=== PATIENT | female | born 1935 | race Caucasian/White ===

== ENCOUNTER 2019-07-04 11:27 | Inpatient (IN) | payer MEDICARE, SELFPAY ==
[2019-07-04] VITALS (20 sets, daily range): BP systolic 121–180; BP diastolic 50–83; PULSE 59–81; RESP 11–24; TEMP 36.1–37; O2SAT 96–100; BMI 30.4
--- NOTE | ~2019-07-04 | XR_ITS ---
EXAMINATION: XR chest 1V DATE: 07/04/2019 12:12 INDICATION: Generalized weakness TECHNIQUE: frontal view of the chest was obtained. COMPARISON: Chest radiograph dated 10/01/2018 and PET/CT dated 06/18/2014 FINDINGS: Unchanged elongated nodular opacity at the right upper lung zone most likely atelectasis/scarring whi ch was present and without significant increased FDG uptake on PET study dated 06/18/2014. Moderate-siz ed hiatal hernia at the medial left lower lung zone. No new airspace opacities, pulmonary edema, pleu ral effusion or pneumothorax. Cardiomegaly. Tortuous thoracic aorta. S-shaped thoracolumbar scoliosis . IMPRESSION: 1. Chronic scarring at the right apex. No acute cardiopulmonary disease. 2. Moderate-sized hiatal hernia. 3. Cardiomegaly. Reviewed, dictated and finalized at location A.
--- NOTE | ~2019-07-04 | US_ITS ---
EXAMINATION: US venous doppler [facility] DATE: 07/07/2019 12:18 INDICATION: Left peroneal vein deep venous thrombosis TECHNIQUE: Rucker scale images without and with compression and Doppler images of the bilateral lower e xtremity veins were obtained. COMPARISON: 07/04/2019. FINDINGS: The right common femoral vein, profunda femoral vein, femoral vein, popliteal vein, peroneal trunk, p osterior tibial veins, and greater saphenous vein are patent. There is now thrombosis in two of two left peroneal veins. The left common femoral vein, profunda fem oral vein, femoral vein, popliteal vein, posterior tibial veins, and greater saphenous vein are mendes nt. IMPRESSION: 1. Thrombosis in two of two left peroneal veins. 2. No evidence of right-sided deep venous thrombosis. Reviewed, dictated and finalized at location A.
--- NOTE | ~2019-07-04 | CT_ITS ---
EXAMINATION: CT abdomen pelvis wo con DATE: 07/04/2019 14:41 INDICATION: Abdominal pain and weakness TECHNIQUE: Computed tomography (CT) of the abdomen and pelvis was performed without intravenous contr ast. The dose-length product (DLP) was 848.66 mGy-cm. Automated exposure control and iterative recons truction technique were employed. COMPARISON: PET CT, 06/18/2014 FINDINGS: There is a moderate-sized sliding hiatal hernia. Minimal dependent atelectasis is present i n the lung bases. The heart size is normal. There is a stable 2.2 cm cyst of the left hepatic lobe. T he spleen, pancreas, and adrenal glands are normal. There is mild distention of the gallbladder. Ther e is irregular wall thickening involving the first and second portions of the duodenum. There is fat stranding adjacent to the affected segment of duodenum with an increase in number of adjacent nonenla rged lymph nodes. The kidneys are unremarkable. There is no free intraperitoneal gas or evidence of b owel obstruction. There is calcified atherosclerosis of the aorta and many of the other arteries. The appendix is normal. A T11 burst fracture is new since the comparison examination. There is severe radha mbar spondylosis. IMPRESSION: 1. Irregular wall thickening involving the first and second portions of the duodenum which could refl ect infection/inflammation or malignancy. GI evaluation is recommended. 2. T11 burst fracture, new since the comparison examination. Reviewed, dictated and finalized at location A. IMPRESSION: 1. Irregular wall thickening involving the first and second portions of the duo denum which could reflect infection/inflammation or malignancy. GI evaluation i s recommended. 2. T11 burst fracture, new since the comparison examination.
--- NOTE | ~2019-07-04 | NM_ITS ---
EXAMINATION: NM pulmonary perfusion DATE: 07/05/2019 13:16 INDICATION: Deep venous thrombosis. Shortness of breath. TECHNIQUE: 5.02 mCi Tc-99m MAA was administered IV. Scintigraphic images of the chest were obtained. COMPARISON: Chest radiograph dated 07/04/[address] abdomen dated FINDINGS: Small perfusion defect at the lateral right upper lung zone corresponding to a chronic airspace opaci ty likely atelectasis/scarring which can be seen on PET/CT dated 06/18/2014. Moderate-sized perfusion d efect at the anterior basilar segment of the right lower lobe without corresponding radiographic opac ity. Asymmetric decreased activity in the left mid and lower lung zones which correspond to cardiomeg randi, a prominent left paracardial fat pad as well as a large hiatal hernia. IMPRESSION: 1. Intermediate probability for pulmonary embolism with moderate-sized perfusion defect at the anter obasilar segment of the right lower lobe. Reviewed, dictated and finalized at location A. IMPRESSION: 1. Intermediate probability for pulmonary embolism with moderate-sized perfusi on defect at the anterobasilar segment of the right lower lobe.
--- NOTE | ~2019-07-04 | US_ITS ---
EXAMINATION: US venous doppler [facility] DATE: 07/04/2019 12:32 INDICATION: Left lower limb swelling and pain TECHNIQUE: Rucker scale images without and with compression and Doppler images of the left lower extrem ity veins were obtained. COMPARISON: None. FINDINGS: There is thrombosis in one of two peroneal veins. The left common femoral vein, profunda fe moral vein, femoral vein, popliteal vein, posterior tibial veins, and greater saphenous vein are mendes nt. IMPRESSION: 1. Thrombosis in one of two peroneal veins. These findings were discussed with Mariah Forrest PA-C in the Emergency Department at 1237 hours on 07/04/2019. Reviewed, dictated and finalized at location A.
--- NOTE | 2019-07-04 11:46 | ECG_ITS ---
Measurements Intervals [place] Rate: 56 P: 44 [place]: 123 QRS: 9 QRSD: 93 T: 11 QT: 469 QTc: 455 Interpretive Statements SINUS BRADYCARDIA EARLY PRECORDIAL R/S TRANSITION VOLTAGE CRITERIA FOR LVH BASELINE ARTIFACT- I, II, III, AVF BORDERLINE ECG Electronically Signed On 07-04-2019 12:38:08 CDT by Kvng Coles D.O.
--- NOTE | 2019-07-04 12:06 | PC.NURSE ---
Unable to obtain adequate specimen with straight cath -patient going to xray and ultrasound-will reattempt when back on unit. PA notified
--- NOTE | 2019-07-04 12:15 | ED.WEAKNESS ---
HPI - Weakness General Chief complaint: Weakness Stated complaint: sent from PMD for continued UTI Time Seen by Provider: 07/04/19 11:36 Source: patient Mode of arrival: wheelchair Limitations: no limitations History of Present Illness HPI Narrative: This is a 84 year old female that presents to the ER for generalized weakness x 5 weeks. Reports she has been feeling weak and short of breath. Reports a productive cough. Also reports some nausea and abdominal pain and that she has not wanted to eat much. Daughter reports she was treated with 2 rounds of antibiotics for UTI. Patient denies fever, chest pain, vomiting, diarrhea, dysuria or hematuria. Related Data Home Medications Medication Instructions Recorded Confirmed On-S1-mpf-ldth-tlu-elvg-boron 1 tablet PO DAILY 07/04/19 [Caltrate 600-D Plus Minerals] albuterol sulfate 2 puff INHALATION QID 07/04/19 atorvastatin 10 mg PO HS 07/04/19 budesonide-formoterol [Symbicort] 2 puff INHALATION BID 07/04/19 cetirizine [Zyrtec] 10 mg PO DAILY 07/04/19 citalopram 40 mg PO HS 07/04/19 diclofenac sodium 75 mg PO BID 07/04/19 gabapentin 100 mg PO DAILY 07/04/19 hydrocodone-acetaminophen 1 tablet PO DAILY PRN 07/04/19 losartan-hydrochlorothiazide 1 tablet PO DAILY 07/04/19 metoprolol succinate 100 mg PO DAILY 07/04/19 omeprazole 20 mg PO DAILY 07/04/19 ondansetron HCl 07/04/19 Allergies Allergy/AdvReac Type Severity Reaction Status Date / Time mushroom AdvReac Unknown Verified 07/04/19 12:12 oyster extract AdvReac Unknown Verified 07/04/19 12:12 Review of Systems Review of Systems: Narrative: CONSTITUTIONAL: Denies fever ENT: Denies rhinorrhea, congestion, sore throat CARDIOVASCULAR: Denies chest pain RESPIRATORY: Reports cough and dyspnea. GASTROINTESTINAL: Reports abdominal pain, nausea. Denies vomiting, or diarrhea. GENITOURINARY: Denies dysuria or hematuria. NEUROLOGIC: Reports weakness. All systems reviewed & are unremarkable except as noted in HPI and below PMFSH Past Medical History Medical History (Updated 07/04/19 @ 16:19 by Mariha Forrest PA-C) History of depression History of hyperlipidemia History of hypertension Social History Social History Gender identity (if verbalized by the patient): Female Exam Narrative: Exam Narrative: GENERAL: Elderly, well-nourished, and in no acute distress. HEAD: Normocephalic, atraumatic. EYES: EOMI. ENT: Nares clear, no rhinorrhea or epistaxis. Mucous membranes moist. Oropharynx without tonsillar hypertrophy exudate or other lesions. NECK: Supple. No adenopathy or masses. CHEST: Clear to auscultation. No respiratory distress. No wheezes rales or rhonchi HEART: Regular rate and rhythm. No murmur heard. Normal peripheral pulses. ABDOMEN: Soft, nondistended, normal active bowel sounds. Mild tenderness to palpation throughout the lower abdomen, without guarding EXTREMITIES: Normal range of motion. Mild edema to the LLE, tender to palpation of the calf SKIN: Warm, dry, no rash. NEURO: No focal deficits. Alert and oriented x3. PSYCH: Normal mood and affect Course Consultations Consultation #1: Spoke with Dr. Ruby about patient and work-up who will consult Date: 07/04/19 Time: 16:15 Consultation #2: Spoke with hospitalist about patient and work-up who accepts admission Date: 07/04/19 Time: 16:15 Vital Signs Vital signs: Vital Signs Temperature 98.6 F 07/04/19 11:34 Pulse Rate 63 07/04/19 11:34 Respiratory Rate 16 07/04/19 11:34 Blood Pressure 133/54 L 07/04/19 11:34 Pulse Oximetry 99 07/04/19 11:34 Temperature 98.6 F 07/04/19 11:34 Pulse Rate 81 07/04/19 14:38 Respiratory Rate 19 07/04/19 14:38 Blood Pressure 158/75 H 07/04/19 14:38 Pulse Oximetry 98 07/04/19 14:38 MDM - Weakness MDM Narrative Medical decision making narrative: Patient presents to the ER for generalized weakness. She is afebrile and nontoxic appearing. Vitals are stable. CBC without leukocy
[2019-07-04 12:18] LABS: Basophils Absolute Auto 0.1 K/mm3 (0.0-0.1); Eosinophils Absolute Auto 0.1 K/mm3 (0-0.3); Eosinophils Percent Auto 0.6 % (0-4.4); Hematocrit 31.5 % (37.0-47.0); Hemoglobin 9.5 g/dL (12.0-15.0); Immature Granulocyte Absolute 0.04 K/mm3 (0.00-0.031); Immature Granulocyte Percent A 0.4 % (0-0.5); Lymphocytes Absolute Auto 1.02 K/mm3 (0.9-3.2); Lymphocytes Percent Auto 10.8 % (18.3-44.2); Mean Corpuscular HGB Conc 30.2 g/dl (32-36); Mean Corpuscular Hemoglobin 25.8 pg (26-34); Mean Corpuscular Volume 85.6 fl (80-100); Mean Platelet Volume 10.3 fl (7.4-10.4); Monocytes Absolute Auto 0.6 K/mm3 (0.1-0.6); Monocytes Percent Auto 6.7 % (2.6-8.5); Neutrophils Absolute Auto 7.6 K/mm3 (1.3-6.7); Neutrophils Percent Auto 80.5 % (45.5-73.1); Platelet Count Result 342 k/mm3 (150-375); Red Blood Count 3.68 M/mm3 (4.2-5.4); Red Cell Distribution Width 14.1 % (11.5-14.5); White Blood Count 9.5 K/mm3 (4.5-10.0)
[2019-07-04 12:30] LABS: Potassium 3.7 mmol/L (3.4-5.0)
[2019-07-04 12:32] LABS: Lactic Acid Reflex 1.8 mmol/L (0.7-2.1)
[2019-07-04 12:33] LABS: Alanine Aminotransferase 10 U/L (4-35); Albumin Level 4.1 g/dL (3.5-5.1); Alkaline Phosphatase 52 U/L (38-126); Aspartate Amino Transferase 24 U/L (14-36); Bilirubin,Total 0.6 mg/dL (0.2-1.3); Blood Urea Nitrogen 28 mg/dL (7-17); Calcium 8.9 mg/dL (8.4-10.2); Carbon Dioxide 23 mmol/L (22-30); Chloride 100 mmol/L (98-107); Estimated Glomerular Filt Rate 29; Glucose 97 mg/dL (65-105); Sodium 134 mmol/L (137-145)
[2019-07-04 12:41] LABS: CRP 0.9 mg/dL (<1.0)
[2019-07-04 12:44] LABS: Lipase 109 U/L (23-300)
[2019-07-04] MEDS: SODIUM CHLORIDE 0.9% IV 1,000 ML 999 ML IV CONT (12:47)
[2019-07-04 12:48] LABS: NT Pro B Type Natriuretic Pept 2630 PG/ML (5-100)
[2019-07-04] MEDS: ONDANSETRON INJ 4 MG/2 ML VIAL IV PUSH (13:05)
[2019-07-04 13:57] LABS: Add Urine Microscopic? YES; Appearance Urine Cloudy (Clear); Bacteria Urine Trace /hpf; Bilirubin Urine Negative (Negative); Blood Urine Negative (Negative); Color Urine Yellow (Yellow); Glucose Urine UA Negative (Negative); Hyaline Casts Urine 50+ /lpf; Ketones Urine 1+ mg/dL (Negative); Leukocyte Esterase Ur Negative LEU/UL (Negative); Mucus Urine Few /lpf; Nitrate Urine Negative (Negative); Protein Urine 2+ mg/dL (Negative); Specific Grav Ur 1.017 (1.001-1.035); Squamous Epithelial Cell Urine Occasional /hpf (Few); Transitional Epi Cells Urine Rare /hpf (None Seen)
[2019-07-04] MEDS: ENOXAPARIN 80 MG/0.8 ML SYRINGE 75 MG SUB-Q (14:37)
--- NOTE | 2019-07-04 17:12 | ADMGEN ---
This patient, Karime Magana, was admitted to Medical Room 342-01. Patient/family oriented to hospital policies and general routines including ID bracelet, bed and alarms, visiting hours, pain management, procedures, bathroom and other care routines, personal items, smoking policy, room service/diet, and visiting hours. Valuables list has been completed. Information on how to activate the Rapid Response Team has been discussed. Patient/Family are encouraged to report perceived risks to care and to ask questions if they do not understand what they are told or what they should do.
--- NOTE | 2019-07-04 19:13 | PM.IMHP ---
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 The patient had 2 rounds of antibiotics for UTI and she has been complaining of weakness for last 5 weeks. She is also short of breath and had a productive cough. She has had some nausea and abdominal pain and has not been able to eat very much. She has decreased appetite. CT of the abdomen was read as irregular wall thickening involving the 1st 2nd portions of the duodenum which could reflect infection/inflammation or malignancy. GI evaluation is recommended. T11 element burst fracture, new since the comparison examination. GI has been consulted. Venous Doppler the left lower extremity was read as thrombosis and 1 of 2 peroneal veins. Patient was complaining redness and swelling to extremity. She was having some pain with held left leg as well. Patient was started on subcu Lovenox and Zofran and IV fluids.Creatinine is 1.7. GFR of 29. Date of service 07/04/2019 Review of Systems Review of Systems: All systems reviewed & are unremarkable except as noted in HPI and below Constitutional: Constitutional: Reports as per HPI and Reports no additional constitutional complaints Eyes: Eyes: Reports as per HPI and Reports no additional eye complaints ENT: Reports system reviewed and no additional complaints, except as documented and Reports Normal hearing present Cardiovascular: Cardiovascular: Reports no additional cardiovascular complaints Respiratory: Respiratory: Reports no additional respiratory complaints and Reports no additional respiratory complaints Gastrointestinal: Gastrointestinal: Reports as per HPI and Reports no additional gastrointestinal complaints Musculoskeletal: Musculoskeletal: Reports no additional musculoskeletal complaints Integumentary/Breasts: Skin/Breast: Reports system reviewed and no additional complaints, except as docu and Reports as per HPI Neurologic: Reports system reviewed and no additional complaints, except as documented, Reports as per HPI and Reports Normal hearing present Psychiatric: Psychiatric: Reports no additional psychiatric complaints and Reports as per HPI Endocrine: Endocrine: Reports no additional endocrine complaints Hematologic/Lymphatic: Hematologic/Lymphatic: Reports no additional hematologic/lymphatic complaints Allergic/Immunologic: Allergic/Immunologic: Reports no additional allergic/immunologic complaints [facility] Past Medical History Medical History (Updated 07/04/19 @ 19:44 by Izzy Knox, KAREN) COPD (chronic obstructive pulmonary disease) History of depression History of hyperlipidemia History of hypertension Hyperlipidemia Surgical History Surgical History (Updated 07/04/19 @ 19:24 by Izzy Knox NP) H/O tubal ligation Family History Family History Mother Hypertension Sibling Hypertension Social History Social History (Updated 07/04/19 @ 19:29 by Izzy Knox NP) Social History: Patient is . She lives at [facility]. She has 4 daughters. 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 After smoking since the age of 18. She works for a [employer]. Smoking packs per day: 0.75 Smoking cigarettes per day: 15.0 Years smoked: 60 Smoking pack-years: 45.00 Smoking status: Former smoker Tobacco type: cigarettes Alcohol intake: current Drinks per week: 1 Substance use type: does not use Living arrangements: alone Gender identity (if verbalized by the patient): Female Spiritual care concerns: No Agree to blood products: Yes Meds Home Medications and Allergies Home Medications Medication Instructions Recorded Confirmed Type Sb-B5-eaa-vpkd-jgn-stse-boron 1 tablet PO DAILY 07/04/19 07/04/19 History [Caltrate 600-D Plus Minerals] albuterol sulfate
[2019-07-04] MEDS: ALBUTEROL SULFATE (*SP) AEROSOL 1 PUFF 2 PUFF INHALATION (20:53)
[2019-07-04] MEDS: GABAPENTIN 100 MG CAPSULE PO (21:13)
[2019-07-04] MEDS: CITALOPRAM HYDROBROMIDE 20 MG TABLET 40 MG PO (21:14)
[2019-07-05] VITALS (13 sets, daily range): BP systolic 103–137; BP diastolic 46–81; PULSE 56–69; RESP 14–20; TEMP 36–36.7; O2SAT 92–100; BMI 30.4
[2019-07-05] MEDS: ENOXAPARIN 80 MG/0.8 ML SYRINGE 72 MG SUB-Q (05:08)
[2019-07-05] MEDS: GABAPENTIN 100 MG CAPSULE PO ×3 (05:08→21:20)
[2019-07-05 05:17] LABS: Basophils Absolute Auto 0.1 K/mm3 (0.0-0.1); Basophils Percent Auto 0.7 % (0.2-1.2); Eosinophils Absolute Auto 0.1 K/mm3 (0-0.3); Hematocrit 27.2 % (37.0-47.0); Hemoglobin 8.2 g/dL (12.0-15.0); Immature Granulocyte Absolute 0.02 K/mm3 (0.00-0.031); Immature Granulocyte Percent A 0.3 % (0-0.5); Lymphocytes Percent Auto 19.1 % (18.3-44.2); Mean Corpuscular HGB Conc 30.1 g/dl (32-36); Mean Corpuscular Hemoglobin 25.8 pg (26-34); Mean Corpuscular Volume 85.5 fl (80-100); Mean Platelet Volume 9.8 fl (7.4-10.4); Monocytes Absolute Auto 0.6 K/mm3 (0.1-0.6); Neutrophils Absolute Auto 4.8 K/mm3 (1.3-6.7); Neutrophils Percent Auto 69.9 % (45.5-73.1); Platelet Count Result 240 k/mm3 (150-375); Red Blood Count 3.18 M/mm3 (4.2-5.4); White Blood Count 6.8 K/mm3 (4.5-10.0)
[2019-07-05 05:33] LABS: Alanine Aminotransferase 8 U/L (4-35); Albumin Level 3.4 g/dL (3.5-5.1); Alkaline Phosphatase 43 U/L (38-126); Aspartate Amino Transferase 18 U/L (14-36); Bilirubin,Total 0.3 mg/dL (0.2-1.3); Blood Urea Nitrogen 27 mg/dL (7-17); Carbon Dioxide 24 mmol/L (22-30); Chloride 103 mmol/L (98-107); Estimated CRCL calculation 25 ml/min; Estimated Glomerular Filt Rate 36; Glucose 79 mg/dL (65-105); Magnesium 1.4 mg/dL (1.6-2.3); Potassium 3.5 mmol/L (3.4-5.0); Sodium 135 mmol/L (137-145)
[2019-07-05] MEDS: ALBUTEROL SULFATE (*SP) AEROSOL 1 PUFF 2 PUFF INHALATION ×4 (08:41→20:03)
[2019-07-05] MEDS: MAGNESIUM SULF 2 GM/WATER 50ML 2 GM/50 ML BAG IVPB (08:46)
[2019-07-05] MEDS: LACTATED RINGERS 1,000 ML 150 ML IV CONT (09:23)
--- NOTE | 2019-07-05 09:29 | SUR.PREOP ---
0929 CALLED DAUGHTER SON AND GIVEN UPDATE, MESSAGE GIVEN TO DR. NOBLE FROM DAUGHTER REQUESTING AN UPDATE AFTER PROCEDURE. DINO KO
--- NOTE | 2019-07-05 09:45 | WPDANESEPPF ---
Anes - Initial Pre Proc Eval Procedure: Operation Date: 07/05/19 10:00 Proposed Procedures p Esophagogastroduodenoscopy - Nick Ruby MD Date/Time: 07/05/19 09:45 Surgeon: Marin Ramírez PA-C Pre Op Diagnosis: DVT Patient Data Age: 84 Gender: F Height: 5 ft 1 in Weight: 73.2 kg Last Vital Signs Temp 36.4 C L 07/05/19 09:24 Pulse 69 07/05/19 09:24 Resp 20 07/05/19 09:24 BP 116/46 L 07/05/19 09:24 Pulse Ox 92 07/05/19 09:24 Allergies Allergy/AdvReac Type Severity Reaction Status Date / Time mushroom AdvReac Unknown Verified 07/04/19 12:12 oyster extract AdvReac Unknown Verified 07/04/19 12:12 Home Medications Medication Instructions Recorded Confirmed Type Wr-D1-ode-hwza-ozv-xitg-boron 1 tablet PO DAILY 07/04/19 07/04/19 History [Caltrate 600-D Plus Minerals] albuterol sulfate 2 puff INHALATION QID 07/04/19 07/04/19 History atorvastatin 10 mg PO HS 07/04/19 07/04/19 History budesonide-formoterol [Symbicort] 2 puff INHALATION BID 07/04/19 07/04/19 History cetirizine [Zyrtec] 10 mg PO DAILY 07/04/19 07/04/19 History citalopram 40 mg PO HS 07/04/19 07/04/19 History diclofenac sodium 75 mg PO Q12H 07/04/19 07/04/19 History ergocalciferol (vitamin D2) 1,250 mcg PO WEEKLY 07/04/19 07/04/19 History [Vitamin D2] gabapentin 100 mg PO TID 07/04/19 07/04/19 History hydrocodone-acetaminophen 1 tablet PO DAILY PRN 07/04/19 07/04/19 History losartan-hydrochlorothiazide 1 tablet PO DAILY 07/04/19 07/04/19 History metoprolol succinate 100 mg PO DAILY 07/04/19 07/04/19 History omeprazole 20 mg PO DAILY 07/04/19 07/04/19 History ondansetron HCl 4 mg DAILY PRN 07/04/19 07/04/19 History Laboratory Tests 07/04/19 07/04/19 07/04/19 12:03 12:03 12:03 WBC 9.5 K/mm3 K/mm3 (4.5-10.0) RBC 3.68 M/mm3 L M/mm3 (4.2-5.4) Hgb 9.5 g/dL L g/dL (12.0-15.0) Hct 31.5 % L % (37.0-47.0) MCV 85.6 fl fl (80-100) MCH 25.8 pg L pg (26-34) MCHC 30.2 g/dl L g/dl (32-36) RDW 14.1 % % (11.5-14.5) Plt Count 342 k/mm3 k/mm3 (150-375) MPV 10.3 fl fl (7.4-10.4) Immature Gran % (Auto) 0.4 % % (0-0.5) Neut % (Auto) 80.5 % H % (45.5-73.1) Lymph % (Auto) 10.8 % L % (18.3-44.2) Person % (Auto) 6.7 % % (2.6-8.5) Eos % (Auto) 0.6 % % (0-4.4) Baso % (Auto) 1.0 % % (0.2-1.2) Lymph # (Auto) 1.02 K/mm3 K/mm3 (0.9-3.2) Person # (Auto) 0.6 K/mm3 K/mm3 (0.1-0.6) Eos # (Auto) 0.1 K/mm3 K/mm3 (0-0.3) Baso # (Auto) 0.1 K/mm3 K/mm3 (0.0-0.1) Abs Immat Gran (auto) 0.04 K/mm3 H K/mm3 (0.00-0.031) Absolute Neuts (auto) 7.6 K/mm3 H K/mm3 (1.3-6.7) Absolute Nucleated RBC 0.0 K/mm3 K/mm3 (0.0-0.012) Nucleated RBC % 0.0 % % (0.0-0.2) Sodium 134 mmol/L L mmol/L (137-145) Potassium 3.7 mmol/L mmol/L (3.4-5.0) Chloride 100 mmol/L mmol/L (98-107) Carbon Dioxide 23 mmol/L mmol/L (22-30) BUN 28 mg/dL H mg/dL (7-17) Creatinine 1.70 mg/dL H mg/dL (0.7-1.0) Estim Creat Clear Calc Not Reportable Estimated GFR 29 L (59 - ) Glucose 97 mg/dL mg/dL (65-105) Lactic Acid 1.8 mmol/L mmol/L (0.7-2.1) Calcium 8.9 mg/dL mg/dL (8.4-10.2) Magnesium Total Bilirubin 0.6 mg/dL mg/dL (0.2-1.3) AST 24 U/L U/L (14-36) ALT 10 U/L U/L (4-35) Alkaline Phosphatase 52 U/L U/L (38-126) C-Reactive Protein NT-Pro-B Natriuret Pep Total Protein 7.0 g/dL g/dL (6.3-8.2) Albumin 4.1 g/dL g/dL (3.5-5.1) Lipase TSH (Reflex) Urine Color Urine Appearance Urine pH Ur Specific [place] Urine Protein
--- NOTE | 2019-07-05 10:09 | WPDGICN ---
Assessment and Plan Assessment and plan (1) Abnormal CT scan: Code(s): R93.89 - Abnormal findings on diagnostic imaging of other specified body structures Status: Acute Assessment and Plan: CT scan suggest abnormality within the duodenum. Plan is for EGD to exclude ulcer, malignancy or infection. Further recommendations after endoscopy. Potentially this contributes to her current malaise. She has modest normochromic normocytic anemia has well. (2) Dementia: Code(s): F03.90 - Unspecified dementia without behavioral disturbance Status: Acute (3) COPD (chronic obstructive pulmonary disease): Code(s): J44.9 - Chronic obstructive pulmonary disease, unspecified Status: Chronic (4) DVT (deep venous thrombosis): Qualifiers: Affected thrombotic vein of extremity: peroneal Chronicity: acute DVT location: lower extremity Laterality: left Qualified Code(s): I82.452 - Acute embolism and thrombosis of left peroneal vein Code(s): I82.409 - Acute embolism and thrombosis of unspecified deep veins of unspecified lower extremity Status: Acute Assessment and Plan: Endoscopy will be performed to determine safety of potential anticoagulation. (5) Anemia: Qualifiers: Anemia type: unspecified type Qualified Code(s): D64.9 - Anemia, unspecified Code(s): D64.9 - Anemia, unspecified Status: Acute GI Consult Note Consult date/time: 07/05/19 10:09 HPI: Karime Magana is a 84 year old female Seen in evaluation at the request of the emergency room. Patient currently lives at [facility]. She has had general malaise for approximately 5 weeks. Recently followed by primary care was treated for urinary tract infection. This is failed to alleviate her symptoms. Because of nausea and malaise presented emergency room last evening. A CT scan of the abdomen was performed and revealed irregular wall thickening in the 2nd portion of the duodenum raising the question for infection or malignancy. An EGD will be performed to evaluate this. Patient also had had left leg swelling and tenderness of the Doppler study revealed DVT in this area. Review of Systems Review of Systems: All systems reviewed & are unremarkable except as noted in HPI and below PMFSH Past Medical History Medical History COPD (chronic obstructive pulmonary disease) History of depression History of hyperlipidemia History of hypertension Hyperlipidemia Surgical History Surgical History H/O tubal ligation Family History Family History Mother Hypertension Sibling Hypertension Social History Social History Social History: Patient is . She lives at [facility]. She has 4 daughters. 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 After smoking since the age of 18. She works for a [employer]. Smoking packs per day: 0.75 Smoking cigarettes per day: 15.0 Years smoked: 60 Smoking pack-years: 45.00 Smoking status: Former smoker Tobacco type: cigarettes Alcohol intake: current Drinks per week: 1 Substance use type: does not use Living arrangements: alone Gender identity (if verbalized by the patient): Female Spiritual care concerns: No Agree to blood products: Yes Meds Home Medications and Allergies Home Medications Medication Instructions Recorded Confirmed Type [id number] 1 tablet PO DAILY 07/04/19 07/04/19 History [Caltrate 600-D Plus Minerals] albuterol sulfate 2 puff INHALATION QID 07/04/19 07/04/19 History atorvastatin 10 mg PO HS 07/04/19 07/04/19 History budesonide-formoterol [Symbicort] 2 puff INHALATION BID 07/04/19 07/04/19 History cetirizin
[2019-07-05] MEDS: BENZOCAINE (*SP) 60 ML SPRAY CAN (HURRICAINE) 1 SPRAY MUCOUS MEM (10:29)
[2019-07-05] MEDS: KCL 20 MEQ/SW 100 ML 100 ML 50 MEQ IVPB (11:30)
--- NOTE | 2019-07-05 11:35 | P.PNIM_ITS ---
Progress Note: A&P Assessment and Plan (1) Duodenal ulcer: Code(s): K26.9 - Duodenal ulcer, unspecified as acute or chronic, without hemorrhage or perforation Status: Acute Assessment and Plan: Multiple duodenal ulcers, one large, found on EGD per Dr. Ruby today. Dr. Ruby following and appreciate recommendations * Continue PO Protonix q12 * Will avoid aspirin, NSAIDS and other medications putting her at risk for bleeding including Lovenox * Diet per GI recommendations * Monitor (2) DVT (deep venous thrombosis): Qualifiers: Affected thrombotic vein of extremity: peroneal Chronicity: acute DVT location: lower extremity Laterality: left Qualified Code(s): I82.452 - Acute embolism and thrombosis of left peroneal vein Code(s): I82.409 - Acute embolism and thrombosis of unspecified deep veins of unspecified lower extremity Status: Acute Assessment and Plan: Thrombosis in 1 of 2 left peroneal veins; no right LE venous doppler performed. She is having left calf pain on exam today. * She was started on therapeutic lovenox, however, given her EGD findings and lowered hgb today, will hold on treatment for now since clot is below knee. * PE is low on the suspicion as her respiratory status remains unchanged and unremarkable, but will proceed with NM VQ scan * Will consider repeat dopplers in 1-2 days to reassess; should clot still be present then, has worsened, or there is one in b/l LE, will consider surgical consult for possible IVC filter placement given her high risk of bleeding * Will apply SCDs to unaffected limb * Will do PT/OT to increase mobility and prevent further clot development * Monitor closely (3) Acute renal failure: Code(s): N17.9 - Acute kidney failure, unspecified Status: Acute Assessment and Plan: Cr improved to 1.40 today; likely acute, but possibly chronic. * Avoid nephrotoxic agents, renally dose medincations * Continue to monitor. * Trend BMP (4) Anemia: Qualifiers: Anemia type: unspecified type Qualified Code(s): D64.9 - Anemia, u nspecified Code(s): D64.9 - Anemia, unspecified Status: Acute Assessment and Plan: Patient's hemoglobin dropped from 9.5 to 8.2 today. She denies any signs of bl eeding at the moment. EGD showed duodenal ulcers * Avoid nsaids, aspirin, and hold on Lovenox for now * Monitor closely. H&H today and possibly tomorrow * Transfuse prn (5) Hypertension: Code(s): I10 - Essential (primary) hypertension Status: Acute Assessment and Plan: BP 130s sys * Will continue home metoprolol * Hold HCTZ-losartan given elevated Cr * Monitor closely * consider prn hydralazine if worsens (6) COPD (chronic obstructive pulmonary disease): Code(s): J44.9 - Chronic obstructive pulmonary disease, unspecified Status: Chronic Assessment and Plan: No acute issues at the moment; lung exam unremarkable. * Continue with her home inhalers. (7) Dementia: Code(s): F03.90 - Unspecified dementia without behavioral disturbance Status: Acute Assessment and Plan: Patient is very pleasant but her memory is fading she is not on any medication for dementia at this time. * Monitor (8) Burst fracture of thoracic vertebra: Qualifiers:
--- NOTE | 2019-07-05 11:35 | PM.IMPN ---
Progress Note: A&P Assessment and Plan (1) Duodenal ulcer: Code(s): K26.9 - Duodenal ulcer, unspecified as acute or chronic, without hemorrhage or perforation Status: Acute Assessment and Plan: Multiple duodenal ulcers, one large, found on EGD per Dr. Ruby today. Dr. Ruby following and appreciate recommendations Continue PO Protonix q12 Will avoid aspirin, NSAIDS and other medications putting her at risk for bleeding including Lovenox Diet per GI recommendations Monitor (2) DVT (deep venous thrombosis): Qualifiers: Affected thrombotic vein of extremity: peroneal Chronicity: acute DVT location: lower extremity Laterality: left Qualified Code(s): I82.452 - Acute embolism and thrombosis of left peroneal vein Code(s): I82.409 - Acute embolism and thrombosis of unspecified deep veins of unspecified lower extremity Status: Acute Assessment and Plan: Thrombosis in 1 of 2 left peroneal veins; no right LE venous doppler performed. She is having left calf pain on exam today. She was started on therapeutic lovenox, however, given her EGD findings and lowered hgb today, will hold on treatment for now since clot is below knee. PE is low on the suspicion as her respiratory status remains unchanged and unremarkable, but will proceed with NM VQ scan Will consider repeat dopplers in 1-2 days to reassess; should clot still be present then, has worsened, or there is one in b/l LE, will consider surgical consult for possible IVC filter placement given her high risk of bleeding Will apply SCDs to unaffected limb Will do PT/OT to increase mobility and prevent further clot development Monitor closely (3) Acute renal failure: Code(s): N17.9 - Acute kidney failure, unspecified Status: Acute Assessment and Plan: Cr improved to 1.40 today; likely acute, but possibly chronic. Avoid nephrotoxic agents, renally dose medincations Continue to monitor. Trend BMP (4) Anemia: Qualifiers: Anemia type: unspecified type Qualified Code(s): D64.9 - Anemia, unspecified Code(s): D64.9 - Anemia, unspecified Status: Acute Assessment and Plan: Patient's hemoglobin dropped from 9.5 to 8.2 today. She denies any signs of bleeding at the moment. EGD showed duodenal ulcers Avoid nsaids, aspirin, and hold on Lovenox for now Monitor closely. H&H today and possibly tomorrow Transfuse prn (5) Hypertension: Code(s): I10 - Essential (primary) hypertension Status: Acute Assessment and Plan: BP 130s sys Will continue home metoprolol Hold HCTZ-losartan given elevated Cr Monitor closely consider prn hydralazine if worsens (6) COPD (chronic obstructive pulmonary disease): Code(s): J44.9 - Chronic obstructive pulmonary disease, unspecified Status: Chronic Assessment and Plan: No acute issues at the moment; lung exam unremarkable. Continue with her home inhalers. (7) Dementia: Code(s): F03.90 - Unspecified dementia without behavioral disturbance Status: Acute Assessment and Plan: Patient is very pleasant but her memory is fading she is not on any medication for dementia at this time. Monitor (8) Burst fracture of thoracic vertebra: Qualifiers: Encounter type: subsequent encounter Fracture healing: with routine healing Fracture type: closed Qualified Code(s): S22.001D - Stable burst fracture of unspecified thoracic vertebra, subsequent encounter for fracture with routine healing Code(s): S22.001A - Stable burst fracture of unspecified thoracic vertebra, initial encounter for closed fracture Status: Acute Assessmen
--- NOTE | 2019-07-05 12:45 | PCOTNOTE ---
OT evaluation attempted. shortly after Eval initiation, patient retrieved for testing. Will attempt OT evaluation at later time.
[2019-07-05 15:24] LABS: Hematocrit 27.3 % (37.0-47.0); Hemoglobin 8.5 g/dL (12.0-15.0)
[2019-07-05] MEDS: PANTOPRAZOLE 40 MG TABLET PO (21:20)
[2019-07-05] MEDS: CITALOPRAM HYDROBROMIDE 20 MG TABLET 40 MG PO (21:20)
[2019-07-06] VITALS (7 sets, daily range): BP systolic 117–156; BP diastolic 58–70; PULSE 56–73; RESP 14–16; TEMP 36.6–36.8; O2SAT 97–98
[2019-07-06] MEDS: GABAPENTIN 100 MG CAPSULE PO ×3 (06:35→21:19)
[2019-07-06 06:37] LABS: Hematocrit 26.5 % (37.0-47.0); Hemoglobin 7.9 g/dL (12.0-15.0); Mean Corpuscular HGB Conc 29.8 g/dl (32-36); Mean Corpuscular Hemoglobin 25.5 pg (26-34); Mean Corpuscular Volume 85.5 fl (80-100); Mean Platelet Volume 10.2 fl (7.4-10.4); Platelet Count Result 243 k/mm3 (150-375); White Blood Count 6.2 K/mm3 (4.5-10.0)
[2019-07-06 06:50] LABS: Alanine Aminotransferase 8 U/L (4-35); Albumin Level 3.2 g/dL (3.5-5.1); Alkaline Phosphatase 42 U/L (38-126); Aspartate Amino Transferase 18 U/L (14-36); Bilirubin,Total 0.4 mg/dL (0.2-1.3); Blood Urea Nitrogen 21 mg/dL (7-17); Calcium 8.3 mg/dL (8.4-10.2); Carbon Dioxide 24 mmol/L (22-30); Chloride 103 mmol/L (98-107); Estimated CRCL calculation 34 ml/min; Estimated Glomerular Filt Rate 53; Glucose 86 mg/dL (65-105); Magnesium 1.7 mg/dL (1.6-2.3); Potassium 3.7 mmol/L (3.4-5.0); Sodium 133 mmol/L (137-145)
[2019-07-06] MEDS: ALBUTEROL SULFATE (*SP) AEROSOL 1 PUFF 2 PUFF INHALATION ×4 (08:37→19:17)
[2019-07-06] MEDS: POTASSIUM CHLORIDE 20 MEQ TABLET 40 MEQ PO (09:00)
[2019-07-06] MEDS: MAGNESIUM SULF 1 GM/D5W 100 ML 1 GM/100 ML BAG IVPB (09:01)
--- NOTE | 2019-07-06 09:06 | PM.IMPN ---
Progress Note: A&P Assessment and Plan (1) Duodenal ulcer: Code(s): K26.9 - Duodenal ulcer, unspecified as acute or chronic, without hemorrhage or perforation Status: Acute Assessment and Plan: Multiple duodenal ulcers, one large, found on EGD per Dr. Ruby today. Dr. Ruby following and appreciate recommendations. Continue PO Protonix q12 Will avoid aspirin, NSAIDS and other medications putting her at risk for bleeding including Lovenox Diet per GI recommendations Monitor (2) DVT (deep venous thrombosis): Qualifiers: Affected thrombotic vein of extremity: peroneal Chronicity: acute DVT location: lower extremity Laterality: left Qualified Code(s): I82.452 - Acute embolism and thrombosis of left peroneal vein Code(s): I82.409 - Acute embolism and thrombosis of unspecified deep veins of unspecified lower extremity Status: Acute Assessment and Plan: Thrombosis in 1 of 2 left peroneal veins; no right LE venous doppler performed. She is having left calf tenderness on exam again today. Patient states she has had this left calf pain for years . Possibly chronic? She was started on therapeutic Lovenox, however, given her EGD findings and lowered hgb today, will hold on treatment for now since clot is below knee. PE is low on the suspicion as her respiratory status remains unchanged and unremarkable, but will proceed with NM VQ scan Will do repeat dopplers tomorrow to reassess; should clot still be present, has worsened, or if there is b/l DVT, will consider surgical consult for possible IVC filter placement given her high risk of bleeding Will apply SCDs to unaffected limb Will do PT/OT to increase mobility and prevent further clot development Monitor closely (3) Acute renal failure: Code(s): N17.9 - Acute kidney failure, unspecified Status: Acute Assessment and Plan: Cr improved to 1.00 today; WNL. Likely acute, but possibly chronic. Avoid nephrotoxic agents, renally dose medincations Continue to monitor. Trend BMP (4) Anemia: Qualifiers: Anemia type: unspecified type Qualified Code(s): D64.9 - Anemia, unspecified Code(s): D64.9 - Anemia, unspecified Status: Acute Assessment and Plan: Patient's hemoglobin lower, but relatively stable at 7.9 today. She denies any signs of bleeding, melena at the moment or on previous BMs. EGD showed duodenal ulcers. Iron studies, folate, vit b12 levels today Avoid nsaids, aspirin, and hold on Lovenox for now Monitor closely; trend H&H tomorrow Transfuse prn (5) Hypertension: Code(s): I10 - Essential (primary) hypertension Status: Acute Assessment and Plan: BP 150s sys Will continue home metoprolol Hold HCTZ-losartan given elevated Cr; will likely resume tomorrow Monitor closely consider prn hydralazine if worsens (6) COPD (chronic obstructive pulmonary disease): Code(s): J44.9 - Chronic obstructive pulmonary disease, unspecified Status: Chronic Assessment and Plan: No acute issues at the moment; lung exam unremarkable. Continue with her home inhalers. (7) Dementia: Code(s): F03.90 - Unspecified dementia without behavioral disturbance Status: Acute Assessment and Plan: Patient is very pleasant and A&Ox4 but her memory is fading she is not on any medication for dementia at this time. Monitor (8) Burst fracture of thoracic vertebra: Qualifiers: Encounter type: subsequent encounter Fracture healing: with routine healing Fracture type: closed Qualified Code(s): S22.001D - Stable burst fracture of unspecified thoracic vertebra, subsequent encounter for
[2019-07-06] MEDS: PANTOPRAZOLE 40 MG TABLET PO ×2 (09:10→21:18)
[2019-07-06] MEDS: METOPROLOL SUCCINATE EXT REL 100 MG TABCR PO (09:10)
[2019-07-06 09:35] LABS: Iron 47 ug/dL (37-170)
[2019-07-06 09:45] LABS: Percent Iron Saturation 14 % (20-50)
[2019-07-06] MEDS: LOSARTAN POTASSIUM 100 MG TABLET PO (10:08)
[2019-07-06] MEDS: hydroCHLOROthiazide 25 MG TABLET PO (10:08)
[2019-07-06 10:51] LABS: Folic Acid 12.9 ng/mL (2.76->20)
[2019-07-06] MEDS: CYANOCOBALAMIN INJ 1,000 MCG/ML VIAL 1000 MCG IM (17:05)
[2019-07-06] MEDS: CITALOPRAM HYDROBROMIDE 20 MG TABLET 40 MG PO (21:19)
[2019-07-07] VITALS (7 sets, daily range): BP systolic 116–143; BP diastolic 53–76; PULSE 58–84; RESP 16; TEMP 36.5–36.8; O2SAT 94–100
[2019-07-07] MEDS: GABAPENTIN 100 MG CAPSULE PO ×3 (05:38→20:56)
[2019-07-07 06:12] LABS: Hematocrit 27.4 % (37.0-47.0); Hemoglobin 8.3 g/dL (12.0-15.0); Mean Corpuscular HGB Conc 30.3 g/dl (32-36); Mean Corpuscular Hemoglobin 25.5 pg (26-34); Mean Corpuscular Volume 84.3 fl (80-100); Platelet Count Result 239 k/mm3 (150-375); Red Blood Count 3.25 M/mm3 (4.2-5.4); Red Cell Distribution Width 14.2 % (11.5-14.5); White Blood Count 5.8 K/mm3 (4.5-10.0)
[2019-07-07 06:39] LABS: Albumin Level 3.4 g/dL (3.5-5.1); Blood Urea Nitrogen 19 mg/dL (7-17); Calcium 8.6 mg/dL (8.4-10.2); Carbon Dioxide 25 mmol/L (22-30); Chloride 100 mmol/L (98-107); Estimated CRCL calculation 34 ml/min; Estimated Glomerular Filt Rate 53; Glucose 94 mg/dL (65-105); Magnesium 1.7 mg/dL (1.6-2.3); Phosphorus 3.1 mg/dL (2.5-4.5); Potassium 4.1 mmol/L (3.4-5.0); Sodium 130 mmol/L (137-145)
[2019-07-07] MEDS: ALBUTEROL SULFATE (*SP) AEROSOL 1 PUFF 2 PUFF INHALATION ×4 (08:12→20:56)
[2019-07-07] MEDS: LOSARTAN POTASSIUM 100 MG TABLET PO (08:19)
[2019-07-07] MEDS: PANTOPRAZOLE 40 MG TABLET PO ×2 (08:20→20:55)
[2019-07-07] MEDS: hydroCHLOROthiazide 25 MG TABLET PO (08:20)
[2019-07-07] MEDS: METOPROLOL SUCCINATE EXT REL 100 MG TABCR PO (08:20)
--- NOTE | 2019-07-07 15:31 | PM.IMPN ---
Progress Note: A&P Assessment and Plan (1) Duodenal ulcer: Code(s): K26.9 - Duodenal ulcer, unspecified as acute or chronic, without hemorrhage or perforation Status: Acute Assessment and Plan: Multiple duodenal ulcers, one large, found on EGD per Dr. Ruby during stay. Dr. Ruby following and appreciate recommendations. Continue PO Protonix q12 Will avoid aspirin, NSAIDS and other medications putting her at risk for bleeding including anticoagulation for her DVT at this point Will await on pathology report Diet per GI recommendations Monitor (2) DVT (deep venous thrombosis): Qualifiers: Affected thrombotic vein of extremity: peroneal Chronicity: acute DVT location: lower extremity Laterality: left Qualified Code(s): I82.452 - Acute embolism and thrombosis of left peroneal vein Code(s): I82.409 - Acute embolism and thrombosis of unspecified deep veins of unspecified lower extremity Status: Acute Assessment and Plan: Thrombosis in 2 of 2 left peroneal veins on venous Doppler today; no right LE DVT noted today. She is having left calf tenderness on exam again today. Patient states she has had this left calf pain for years . Possibly chronic? NM VQ does show intermediate probability for PE with moderate-sized perfusion defect in anterobasilar segment of RLL, however, PE is low on the suspicion as her respiratory status remains unchanged and unremarkable She was started on therapeutic Lovenox, however, given her EGD findings and lowered hgb, will hold on treatment for now since clots are below the knee. Since she will be here waiting for results of biopsy results from EGD, will plan on repeating doppler in 2-3 daysl to reassess; should clot still be present, has worsened (extended proximally), or if there is b/l DVT, will consider surgical consult for possible IVC filter placement given her high risk of bleeding on a/c Will apply SCDs to unaffected limb Will do PT/OT to increase mobility and prevent further clot development Monitor closely (3) Acute renal failure: Code(s): N17.9 - Acute kidney failure, unspecified Status: Acute Assessment and Plan: Cr improved to 1.00 today; WNL. Likely acute, but possibly chronic. Continue to monitor. Trend BMP (4) Anemia: Qualifiers: Anemia type: unspecified type Qualified Code(s): D64.9 - Anemia, unspecified Code(s): D64.9 - Anemia, unspecified Status: Acute Assessment and Plan: Patient's hemoglobin lower, but relatively stable at 8.3 today. She denies any signs of bleeding, melena at the moment or on previous BMs. EGD showed duodenal ulcers. Iron studies showed low-normal iron/%sat and low-normal vit B12 and given IV venofer and IM cyanocobalamin. Avoid nsaids, aspirin, and hold on a/c for now Monitor closely; trend H&H tomorrow Transfuse prn (5) Hypertension: Code(s): I10 - Essential (primary) hypertension Status: Acute Assessment and Plan: BP 140s sys Will continue home metoprolol HCTZ-losartan resumed today Monitor closely consider prn hydralazine if worsens (6) COPD (chronic obstructive pulmonary disease): Code(s): J44.9 - Chronic obstructive pulmonary disease, unspecified Status: Chronic Assessment and Plan: No acute issues at the moment; lung exam unremarkable. Continue with her home inhalers. (7) Dementia: Code(s): F03.90 - Unspecified dementia without behavioral disturbance Status: Acute Assessment and Plan: Patient is very pleasant and A&Ox4. She is not on any medication for dementia at this time. Monitor (8) Burst fracture of thoracic vertebra:
[2019-07-07] MEDS: CITALOPRAM HYDROBROMIDE 20 MG TABLET 40 MG PO (20:55)
[2019-07-07] MEDS: ATORVASTATIN 10 MG TABLET PO (20:55)
[2019-07-08 05:57] LABS: Blood Urea Nitrogen 19 mg/dL (7-17); Calcium 8.4 mg/dL (8.4-10.2); Carbon Dioxide 25 mmol/L (22-30); Chloride 101 mmol/L (98-107); Estimated CRCL calculation 23 ml/min; Estimated Glomerular Filt Rate 33; Glucose 96 mg/dL (65-105); Magnesium 1.6 mg/dL (1.6-2.3); Potassium 3.8 mmol/L (3.4-5.0); Sodium 132 mmol/L (137-145)
[2019-07-08 06:00] VITALS: BP 116/49; PULSE 56; RESP 18; TEMP 36.5; O2SAT 98
[2019-07-08 06:01] LABS: Hematocrit 25.7 % (37.0-47.0); Hemoglobin 7.8 g/dL (12.0-15.0); Mean Corpuscular HGB Conc 30.4 g/dl (32-36); Mean Corpuscular Hemoglobin 25.9 pg (26-34); Mean Corpuscular Volume 85.4 fl (80-100); Platelet Count Result 231 k/mm3 (150-375); Red Blood Count 3.01 M/mm3 (4.2-5.4); Red Cell Distribution Width 14.6 % (11.5-14.5); White Blood Count 5.5 K/mm3 (4.5-10.0)
[2019-07-08] MEDS: GABAPENTIN 100 MG CAPSULE PO ×3 (06:20→21:18)
--- NOTE | 2019-07-08 07:01 | WPDCDIQUERY2 ---
CDI Query Clarification Request -Anemia, unspecified has been documented -07/03 H&H 9.5/31.5, 07/07 H&H 7.8/25.7 -EGD showed multiple duodenal ulcers. black material/clot was present. Please further clarify type/cause and acuity of anemia.
--- NOTE | 2019-07-08 07:24 | WPDGIPROGNO ---
Progress Note: A&P Additional Plan Patient alert and comfortable this morning. She denies abdominal pain. She denies leg pain. Tolerating diet without difficulty. Physical exam reveals her to be alert. Vital signs stable. HEENT exam unremarkable. Lungs are clear. Heart without murmur. Abdomen is soft and nontender. Extremities without clubbing cyanosis or edema. Impression 1. Multiple duodenal ulcers. One huge duodenal ulcer. Histology pending. 2. DVT. Likely will require anticoagulation. I would anticoagulate with caution but continue monitor hemoglobin closely as she had an extremely large duodenal ulcer. Plan to review histology for duodenal ulcer. Follow-up EGD in 2 months is advised. 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 Avoid nonsteroidal anti-inflammatory agents. At this point I would anticoagulate with caution. Continue to monitor hemoglobin. Hopefully discharge today. Subjective Date/time seen: 07/08/19 07:24 Objective Data Vital Signs Vital Signs: Vital Signs - 24 hr 07/07/19 08:20 07/07/19 09:00 07/07/19 11:41 Temperature Pulse Rate 60 60 63 Respiratory Rate 16 Blood Pressure Pulse Oximetry 94 07/07/19 14:00 07/07/19 16:38 07/07/19 22:00 Temperature 36.8 C 36.8 C Pulse Rate 84 58 L 58 L Respiratory Rate 16 16 Blood Pressure 143/76 H 116/53 L Pulse Oximetry 100 97 07/08/19 06:00 Temperature 36.5 C Pulse Rate 56 L Respiratory Rate 18 Blood Pressure 116/49 L Pulse Oximetry 98 Intake/Output Intake/Output: Intake & Output 07/05/19 07/06/19 07/07/19 07/08/19 23:59 23:59 23:59 23:59 Intake Total 725 1245 1630 150 Output Total 1200 1100 500 500 Balance -205 971 8786 -350 Meds/Results Medications: Active Medications Generic Name Dose Route Start Last Admin Trade Name Freq PRN Reason Stop Dose Admin Acetaminophen 650 mg 07/07/19 18:58 Tylenol Tablet PO Q6H PRN Mild Pain (1-3) or Fever Hydrocodone Bitart/Acetaminophen 1 tab 07/04/19 19:44 07/07/19 05:38 Orrick 5-325 Mg PO 1 tab DAILY PRN Administration Pain 4-10 Albuterol 2 puff 07/04/19 20:00 07/07/19 20:56 Proventil Hfa INHALATION 2 puff QIDRT FREDY Administration Atorvastatin Calcium 10 mg 07/07/19 21:00 07/07/19 20:55 Lipitor PO 10 mg HS FREDY Administration Budesonide/Formoterol Fumarate 2 puff 07/04/19 20:00 07/07/19 21:00 Symbicort 80-4.5 Mcg (*Sp) Inhaler INHALATION 2 puff Q12HRT FREDY Administration Calcium Carbonate 500 mg 07/05/19 09:00 07/07/19 08:19 Os-Rupert 500 +D Tablet PO 08/04/19 09:01 500 mg DAILY FREDY Administration Citalopram Hydrobromide 40 mg 07/04/19 21:00 07/07/19 20:55 Celexa PO 40 mg HS [facility] Administration Docusate Sodium 100 mg 07/07/19 15:33 Colace Capsule PO Q12H PRN Constipation Enoxaparin Sodium 72 mg 07/05/19 06:00 07/05/19 05:08 Lovenox SUB-Q 72 mg Q12H [facility] Administration Ergocalciferol 50,000 unit 07/10/19 09:00 Drisdol PO We@0900 [facility] Gabapentin 100 mg 07/04/19 22:00 07/08/19 06:20 Neurontin PO 100 mg Q8HR FREDY Administration Hydrochlorothiazide 25 mg 07/06/19 09:00 07/07/19 08:20 Hydrochlorothiazide PO 25 mg QAM FREDY Administration Losartan Potassium 100 mg 07/06/19 09:00 07/07/19 08:19 Cozaar PO 100 mg DAILY FREDY Administration Metoprolol Succinate 100 mg 07/06/19 09:00 07/07/19 08:20 Toprol Xl PO 100 mg DAILY FREDY Administration Pantoprazole Sodium 40 mg 07/05/19 21:00 07/07/19 20:55 Protonix PO 40 mg Q12HR FREDY Administration Radiology Results: ITS Impressions Chest X-Ray 07/04/19 12:14 IMPRESSION: 1. Chronic scarring at the right apex. No acute cardiopulmonary disease. 2. Moderate-sized hiatal hernia. 3. Cardiomegaly. Abdomen/Pelvis CT 07/04/19 14:49 IMPRESSION: 1. Irregular wall thickening involving the first and second portions of the duodenum which could reflect infectio
[2019-07-08] MEDS: ALBUTEROL SULFATE (*SP) AEROSOL 1 PUFF 2 PUFF INHALATION ×4 (08:32→19:22)
[2019-07-08 09:10] VITALS: PULSE 71
[2019-07-08] MEDS: LACTATED RINGERS 1,000 ML 75 ML IV CONT ×2 (09:10→23:40)
[2019-07-08] MEDS: METOPROLOL SUCCINATE EXT REL 100 MG TABCR PO (09:10)
[2019-07-08] MEDS: PANTOPRAZOLE 40 MG TABLET PO ×2 (09:10→20:01)
--- NOTE | 2019-07-08 13:10 | PM.IMPN ---
Progress Note: A&P Assessment and Plan (1) Duodenal ulcer: Code(s): K26.9 - Duodenal ulcer, unspecified as acute or chronic, without hemorrhage or perforation Status: Acute Assessment and Plan: Multiple duodenal ulcers, one large, found on EGD per Dr. Ruby during stay. Dr. Ruby following and appreciate recommendations. Pathology from duodenal ulcer biopsy read as NONSPECIFIC ACUTE DUODENITIS WITH BENIGN ACUTE ULCER Continue PO Protonix q12 Will avoid aspirin, NSAIDS and other medications putting her at risk for bleeding including anticoagulation for her DVT at this point Diet per GI recommendations Monitor (2) DVT (deep venous thrombosis): Qualifiers: Affected thrombotic vein of extremity: peroneal Chronicity: acute DVT location: lower extremity Laterality: left Qualified Code(s): I82.452 - Acute embolism and thrombosis of left peroneal vein Code(s): I82.409 - Acute embolism and thrombosis of unspecified deep veins of unspecified lower extremity Status: Acute Assessment and Plan: Thrombosis in 2 of 2 left peroneal veins on repeat venous Doppler yesterday; no right LE DVT noted. She is having left calf tenderness on exam again today. Patient states she has had this left calf pain for years . Possibly chronic? NM VQ does show intermediate probability for PE with moderate-sized perfusion defect in anterobasilar segment of RLL, however, PE is low on the suspicion as her respiratory status remains unchanged and unremarkable. She was initially started on therapeutic Lovenox, however, given her EGD findings and lowered hgb, will continue to hold on treatment for now since clots are below the knee. Spoke with PCP, Dr. Thompson, who recommended getting General Surgery consultation for possible IVC filter placement; this has been placed. Will apply SCDs to unaffected limb for now Will do PT/OT to increase mobility and prevent further clot development Monitor closely (3) Acute renal failure: Code(s): N17.9 - Acute kidney failure, unspecified Status: Acute Assessment and Plan: Cr improved to 1.50 today; WNL. Likely acute, possibly due to HTN medications/dehydration Will do IVF rehydration Hold Losartan-HCTZ for now Cardiology has been consulted, please see below Trend BMP (4) Anemia: Qualifiers: Anemia type: unspecified type Qualified Code(s): D64.9 - Anemia, unspecified Code(s): D64.9 - Anemia, unspecified Status: Acute Assessment and Plan: Patient's hemoglobin lower, but relatively stable at 7.8 today. She denies any signs of bleeding, melena at the moment or on previous BMs. EGD showed duodenal ulcers. Iron studies showed low-normal iron/%sat and low-normal vit B12 and given IV venofer and IM cyanocobalamin. Avoid nsaids, aspirin, and hold on a/c for now Monitor closely; trend H&H tomorrow Transfuse prn (5) Hypertension: Code(s): I10 - Essential (primary) hypertension Status: Acute Assessment and Plan: BP 110s sys Will continue home metoprolol HCTZ-losartan held due to BRADLEY Patient daughter, Marci, requested Cardiology consult for establishment of care and for further recommendations on anti-HTN medications. Consult has been placed Monitor (6) COPD (chronic obstructive pulmonary disease): Code(s): J44.9 - Chronic obstructive pulmonary disease, unspecified Status: Chronic Assessment and Plan: No acute issues at the moment; lung exam unremarkable. Continue with her home inhalers. (7) Dementia: Code(s): F03.90 - Unspecified dementia without behavioral disturbance Status: Acute Assessment and Plan: Patient is very pleasant and A&Ox4. She is no
[2019-07-08 14:00] VITALS: BP 154/81; PULSE 64; RESP 16; TEMP 36.7; O2SAT 100
[2019-07-08] MEDS: DOCUSATE SODIUM 100 MG CAPSULE PO (14:27)
--- NOTE | 2019-07-08 14:51 | PM.CNCAR ---
Assessment and Plan Additional Plan 84-year-old white female with: Longstanding essential hypertension previously on a 3 drug regimen including metoprolol losartan and hydrochlorothiazide. Because of renal concerns the ARB and a diuretic have been stopped. At the moment her blood pressure is still completely normal. I will follow her blood pressure with you while she is in the hospital in if this does become a problem alternative agents will be added but as of this moment I would not add a 2nd agent to the beta-krishna. Symptomatic anemia with impressive endoscopic findings with multiple duodenal ulcers with stigmata of recent bleeding. Below the knee DVT with surgical consult pending regarding the possibility of needing a a IVC filter. I would agree with Dr. Ruby that systemic anticoagulation is probably to be avoided. It is questionable as to whether not IVC filter needs to be done for a below the knee DVT but surgical consult is pending. Kristofer Mejia MD [facility] History of Present Illness History of Present Illness Consult date/time: date of service:07/08/19 14:51 Consult reason: hypertension Reason For Visit: DVT Narrative: This is an 84-year-old woman who I have been asked to see this afternoon at the request of the hospital staff because of hypertension and renal insufficiency. There is not on a separate cardiac problem from what I can tell nor from what I can see from looking at the chart. She has been in the hospital since the of this month when she was seen in the emergency room complaining of generalized weakness and some lightheadedness. She was found to be anemic which did worsen while she was here and had some abnormalities on CT scan in the duodenum. She was seen in consultation by Dr. Ruby of Gastroenterology Who evaluated the patient in the GI lab endoscopy demonstrated multiple duodenal ulcers including 1 large one apparently very large 1 with stigmata of recent bleeding. She has no prior history of ulcer disease and has not been experiencing any abdominal pain. She does have a history of chronic hypertension for which she was taking combination of beta-blockers losartan and hydrochlorothiazide. Her creatinine was increased from 1-1.5 and it was determined that her ARB and diuretic should be stopped. Looks like they were stopped on the . I have been asked to see her apparently her family indicated she they wanted a sample washer to determine how to manage her hypertension because of this. She otherwise does not see a sample washer and has not had any cardiac problems that she can recall. When I entered the room to see her she was watching television relaxing in bed and appeared to be in no distress. She denies any symptoms of chest pain exertional dyspnea palpitations orthopnea PND or edema. She has never had a syncopal episode. For her hypertension she remains on metoprolol at a dosage of 100 mg daily and her blood pressure today is completely normal. Review of Systems Constitutional: Constitutional: Reports as per HPI and Reports no additional constitutional complaints Eyes: Eyes: Reports no additional eye complaints ENT: Reports system reviewed and no additional complaints, except as documented Cardiovascular: Cardiovascular: Reports no additional cardiovascular complaints Respiratory: Respiratory: Reports no additional respiratory complaints Gastrointestinal: Gastrointestinal: Reports as per HPI Genitourinary: Genitourinary: Reports no additional female genitourinary complaints Musculoskeletal: Musculoskeletal: Reports no additional musculoskeletal complaints Integumentary/Breasts: Skin/Breast: Reports system reviewed and no additional complaints, except as docu Neurologic: Reports system reviewed and no additional complaints, except as documented Endocrine: Endocrine: Reports no additional endocrine complaints Hematologic/Lymphatic: Hematologic/Lymphatic: Reports as per
--- NOTE | 2019-07-08 15:03 | PM.CNGS ---
Assessment and Plan Assessment and plan (1) DVT (deep venous thrombosis): Qualifiers: Affected thrombotic vein of extremity: peroneal Chronicity: acute DVT location: lower extremity Laterality: left Qualified Code(s): I82.452 - Acute embolism and thrombosis of left peroneal vein Code(s): I82.409 - Acute embolism and thrombosis of unspecified deep veins of unspecified lower extremity Status: Acute Assessment and Plan: The patient has a DVT in two of two left peroneal veins. She is not a good candidate for anticoagulation with the findings of multiple duodenal ulcers, one being extremely large, and her anemia. GI recommends anticoagulating with caution. Although, with the DVT being below the knee, it is optional to continue to monitor this as an outpatient for propagation versus systemic anticoagulation. The patient's PCP is recommending IVC filter placement due to her being a poor candidate for anticoagulation if needed. Description of the procedure, risks, benefits, indications, and expected outcomes were discussed with the patient in detail. All questions were answered. She requested that her daughter be called for consent as well and the procedure be discussed with her. Dr. Westbrook called the patient and discussed the procedure with her in detail. The patient's daughter, Marci, is requesting to hold off on the procedure until she discusses this further with her siblings. She will notify us of their decision hopefully tomorrow and we will be able to proceed accordingly. Thank you for allowing me to see the patient in consultation and we will continue to follow along with you. (2) Duodenal ulcer: Code(s): K26.9 - Duodenal ulcer, unspecified as acute or chronic, without hemorrhage or perforation Status: Acute (3) Anemia: Qualifiers: Anemia type: unspecified type Qualified Code(s): D64.9 - Anemia, unspecified Code(s): D64.9 - Anemia, unspecified Status: Acute (4) Acute renal failure: Code(s): N17.9 - Acute kidney failure, unspecified Status: Acute (5) COPD (chronic obstructive pulmonary disease): Code(s): J44.9 - Chronic obstructive pulmonary disease, unspecified Status: Chronic (6) Hypertension: Code(s): I10 - Essential (primary) hypertension Status: Acute (7) Hyperlipidemia: Code(s): E78.5 - Hyperlipidemia, unspecified Status: Chronic (8) Dementia: Code(s): F03.90 - Unspecified dementia without behavioral disturbance Status: Acute History of Present Illness Consult details Consult date: 07/08/19 Reason for consult: other (IVC Filter Placement) Requesting physician: Marin Ramírez PA-C Narrative: The patient presented to the emergency department for evaluation of abdominal pain, nausea, decreased appetite, and weakness. She was found to be anemic, along with CT findings of wall abnormalities of the duodenum. GI was consulted and performed an upper endoscopy, which revealed multiple duodenal ulcers, with one being very large. The patient was started on PPI therapy. She was also found to have a DVT in one of two peroneal veins in the left lower leg on venous doppler on 07/04/19. It was decided to defer anticoagulation therapy and monitor with a repeat venous doppler due to her high risk for anticoagulation of the previously mentioned GI issues. Lower extremity doppler was repeated on 07/08/19 and showed DVT in two out of two left peroneal veins. The patient's primary provider was contacted regarding outpatient follow-up and is apparently requesting that the patient have an IVC filter placed due to her high risk for anticoagulation. Therefore, our service is being consulted by the Hospitalist for IVC filter placement. Review of Systems Constitutional: Constitutional: Reports as per HPI, Denies chills and Denies fever(s) Eyes: Eyes: Denies change in vision and Denies loss of vision ENT: Denies dysphagia and Denies d
[2019-07-08] MEDS: CITALOPRAM HYDROBROMIDE 20 MG TABLET 40 MG PO (20:01)
[2019-07-08 20:35] VITALS: BP 125/54; PULSE 70; RESP 17; TEMP 36.6; O2SAT 95
[2019-07-09] VITALS (9 sets, daily range): BP systolic 138–152; BP diastolic 52–73; PULSE 59–76; RESP 12–18; TEMP 36.4–36.9; O2SAT 92–100
[2019-07-09] MEDS: GABAPENTIN 100 MG CAPSULE PO ×3 (05:31→20:28)
[2019-07-09 06:00] LABS: Hematocrit 27.8 % (37.0-47.0); Hemoglobin 8.3 g/dL (12.0-15.0); Mean Corpuscular HGB Conc 29.9 g/dl (32-36); Mean Corpuscular Hemoglobin 25.7 pg (26-34); Mean Corpuscular Volume 86.1 fl (80-100); Mean Platelet Volume 10.2 fl (7.4-10.4); Platelet Count Result 234 k/mm3 (150-375); Red Blood Count 3.23 M/mm3 (4.2-5.4); Red Cell Distribution Width 14.6 % (11.5-14.5); White Blood Count 6.2 K/mm3 (4.5-10.0)
[2019-07-09 06:12] LABS: Blood Urea Nitrogen 18 mg/dL (7-17); Calcium 8.6 mg/dL (8.4-10.2); Carbon Dioxide 25 mmol/L (22-30); Chloride 102 mmol/L (98-107); Estimated CRCL calculation 25 ml/min; Estimated Glomerular Filt Rate 36; Glucose 90 mg/dL (65-105); Magnesium 1.4 mg/dL (1.6-2.3); Potassium 3.8 mmol/L (3.4-5.0); Sodium 135 mmol/L (137-145)
--- NOTE | 2019-07-09 07:25 | WPDGIPROGNO ---
Progress Note: A&P Additional Plan Patient comfortable this morning. Offers no complaints. She denies leg pain at present. Denies abdominal pain. Tolerating soft diet. Physical exam reveals her to be alert. Vital signs are stable. She is anicteric. Lungs are clear. Heart without murmur. Abdomen bowel sounds are present soft nontender with no hepatosplenomegaly. Legs are without swelling or edema present. Impression 1. Multiple duodenal ulcers. One is especially large with stigmata of recent bleeding. Plan is to avoid nonsteroidal anti-inflammatory agents. Continue proton pump inhibitor after discharge. Probably best to hold anticoagulation for a week given her recent GI bleed. Follow-up EGD anticipated in 2 months. Histology pending 2. DVT. Probably best to avoid anticoagulation for a brief period. Follow hematocrit when anticoagulation started. Clinically DVT appears to be. Surgery has seen patient for possible IVC filter. No evidence for PE. Subjective Date/time seen: 07/09/19 07:25 Objective Data Vital Signs Vital Signs: Vital Signs - 24 hr 07/08/19 09:10 07/08/19 14:00 07/08/19 20:35 Temperature 36.7 C 36.6 C Pulse Rate 71 64 70 Respiratory Rate 16 17 Blood Pressure 154/81 H 125/54 L Pulse Oximetry 100 95 07/09/19 06:24 Temperature 36.9 C Pulse Rate 59 L Respiratory Rate 16 Blood Pressure 145/61 H Pulse Oximetry 95 Intake/Output Intake/Output: Intake & Output 07/06/19 07/07/19 07/08/19 07/09/19 23:59 23:59 23:59 23:59 Intake Total 1245 1630 2315 420 Output Total 1100 500 500 400 Balance 145 1130 1815 20 Meds/Results Medications: Active Medications Generic Name Dose Route Start Last Admin Trade Name Freq PRN Reason Stop Dose Admin Acetaminophen 650 mg 07/07/19 18:58 Tylenol Tablet PO Q6H PRN Mild Pain (1-3) or Fever Hydrocodone Bitart/Acetaminophen 1 tab 07/04/19 19:44 07/07/19 05:38 [place] 5-325 Mg PO 1 tab DAILY PRN Administration Pain 4-10 Albuterol 2 puff 07/04/19 20:00 07/08/19 19:22 Proventil Hfa INHALATION 2 puff QIDRT FREDY Administration Atorvastatin Calcium 10 mg 07/07/19 21:00 07/07/19 20:55 Lipitor PO 10 mg HS FREDY Administration Budesonide/Formoterol Fumarate 2 puff 07/04/19 20:00 07/08/19 19:22 Symbicort 80-4.5 Mcg (*Sp) Inhaler INHALATION 2 puff Q12HRT FREDY Administration Calcium Carbonate 500 mg 07/05/19 09:00 07/08/19 09:10 [place] 500 +D Tablet PO 08/04/19 09:01 500 mg DAILY FREDY Administration Citalopram Hydrobromide 40 mg 07/04/19 21:00 07/08/19 20:01 Celexa PO 40 mg HS FREDY Administration Docusate Sodium 100 mg 07/07/19 15:33 Colace Capsule PO Q12H PRN Constipation Enoxaparin Sodium 72 mg 07/05/19 06:00 07/05/19 05:08 Lovenox SUB-Q 72 mg Q12H FREDY Administration Ergocalciferol 50,000 unit 07/10/19 09:00 Drisdol PO We@0900 FREDY Gabapentin 100 mg 07/04/19 22:00 07/09/19 05:31 Neurontin PO 100 mg Q8HR FREDY Administration Hydrochlorothiazide 25 mg 07/06/19 09:00 07/07/19 08:20 Hydrochlorothiazide PO 25 mg QAM FREDY Administration Lactated Ringer's 1,000 mls @ 75 mls/hr 07/08/19 07:45 07/09/19 05:18 Lr - Lactated Ringers Iv IV CONT 75 mls/hr .[id number] FREDY Infusion Losartan Potassium 100 mg 07/06/19 09:00 07/07/19 08:19 Cozaar PO 100 mg DAILY FREDY Administration Metoprolol Succinate 100 mg 07/06/19 09:00 07/08/19 09:10 Toprol Xl PO 100 mg DAILY FREDY Administration Pantoprazole Sodium 40 mg 07/05/19 21:00 07/08/19 20:01 Protonix PO 40 mg Q12HR FREDY Administration Radiology Results: ITS Impressions Chest X-Ray 07/04/19 12:14 IMPRESSION: 1. Chronic scarring at the right apex. No acute cardiopulmonary disease. 2. Moderate-sized hiatal hernia. 3. Cardiomegaly. Abdomen/Pelvis CT 07/04/19 14:49 IMPRESSION: 1. Irregular wall thickening involving
[2019-07-09] MEDS: ALBUTEROL SULFATE (*SP) AEROSOL 1 PUFF 2 PUFF INHALATION ×4 (08:53→19:04)
[2019-07-09] MEDS: MAGNESIUM SULF 2 GM/WATER 50ML 2 GM/50 ML BAG IVPB (10:20)
--- NOTE | 2019-07-09 10:47 | PC.NURSE ---
Spoke with Celso in [facility], Pt is able to take oral medications before procedure.
[2019-07-09] MEDS: PANTOPRAZOLE 40 MG TABLET PO ×2 (10:51→20:28)
[2019-07-09] MEDS: METOPROLOL SUCCINATE EXT REL 100 MG TABCR PO (10:51)
[2019-07-09] MEDS: DOCUSATE SODIUM 100 MG CAPSULE PO (10:51)
[2019-07-09] MEDS: ACETAMINOPHEN 325 MG TABLET 650 MG PO (10:52)
--- NOTE | 2019-07-09 11:50 | PM.PNCARD ---
Progress Note: A&P Assessment and Plan (1) Hypertension: Code(s): I10 - Essential (primary) hypertension Status: Acute Assessment and Plan: At this point, her blood pressure is reasonably controlled but she will likely need another agent in the future (2) Duodenal ulcer: Code(s): K26.9 - Duodenal ulcer, unspecified as acute or chronic, without hemorrhage or perforation Status: Acute Assessment and Plan: no anticoagulation (3) DVT (deep venous thrombosis): Qualifiers: Affected thrombotic vein of extremity: peroneal Chronicity: acute DVT location: lower extremity Laterality: left Qualified Code(s): I82.452 - Acute embolism and thrombosis of left peroneal vein Code(s): I82.409 - Acute embolism and thrombosis of unspecified deep veins of unspecified lower extremity Status: Acute Assessment and Plan: no anticoagulation because of duodenal ulcer and anemia. IVC filter today Additional Plan Subjective Date/time seen: 07/09/19 11:50 Interval history: Patient is a 84 yo F with history of COPD, HLD, HTN and depression who is here for abdominal pain (duodenal ulcers found on EGD this hospital stay), BRADLEY, and left peroneal vein DVT. date of service 07/09/2019: She feels okay today. No chest pain or shortness of breath. Review of Systems Constitutional: Constitutional: Reports as per HPI and Reports no additional constitutional complaints Eyes: Eyes: Reports no additional eye complaints ENT: Reports system reviewed and no additional complaints, except as documented Cardiovascular: Cardiovascular: Reports no additional cardiovascular complaints Respiratory: Respiratory: Reports no additional respiratory complaints Gastrointestinal: Gastrointestinal: Reports as per HPI Genitourinary: Genitourinary: Reports no additional female genitourinary complaints Musculoskeletal: Musculoskeletal: Reports no additional musculoskeletal complaints Integumentary/Breasts: Skin/Breast: Reports system reviewed and no additional complaints, except as docu Neurologic: Reports system reviewed and no additional complaints, except as documented Endocrine: Endocrine: Reports no additional endocrine complaints Hematologic/Lymphatic: Hematologic/Lymphatic: Reports as per HPI Allergic/Immunologic: Allergic/Immunologic: Reports no additional allergic/immunologic complaints Exam Const: General: comfortable and no acute distress Other: Pleasant elderly lady sitting in bed she appears to be comfortable and not in any distress of any sort. HENMT: Mouth: Yes moist mucous membranes Eyes: Sclera: sclerae normal Pupils: Equal, round and reactive pupils present Neck: Neck: no JVD Thyroid: thyroid normal Resp: Effort & Inspection: normal respiratory effort Auscultation: clear to auscultation bilaterally Cardio: Rate: regular rate Rhythm: regular rhythm Heart sounds: Murmur heart sound present systolic II/ and at the left sternal border GI: Auscultation: normal bowel sounds Skin: General skin exam: normal color Neuro: Cranial nerves: Yes Equal, round and reactive pupils present Cognition (Neuro): normal cognition Extrem: General: edema Psych: Appearance: grossly normal Objective Data Vital Signs Vital Signs: Vital Signs - 24 hr 07/08/19 14:00 07/08/19 20:35 07/09/19 06:24 Temperature 36.7 C 36.6 C 36.9 C Pulse Rate 64 70 59 L Respiratory Rate 16 17 16 Blood Pressure 154/81 H 125/54 L 145/61 H Pulse Oximetry 100 95 95 07/09/19 10:51 Temperature Pulse Rate 70 Respiratory Rate Blood Pressure Pulse Oximetry Intake/Output Intake/Output: Intake & Output 07/06/19 07/07/19 07/08/19 07/09/19 23:59 23:59 23:59 23:59 Intake Total 1245 1630 2315 470 Output Total 1100 500 500 400 Balance 145 1130 1815 70 Meds/Results Medications: Active Medications Generic Name Dose Route Start Last Admin Trade Name Freq PRN Reason Stop D
[2019-07-09] MEDS: MAGNESIUM SULF 1 GM/D5W 100 ML 1 GM/100 ML BAG IVPB (13:06)
--- NOTE | 2019-07-09 13:50 | PCNFU ---
Nutrition Follow-Up Complete: Inadequate oral intake r/t nausea and reduced appetite as evidence by PO intakes of 5% and 50%. Goal: PO intake of 75% of meals Progressing towards goal. We will continue current goal. Pt current nutrition is Regular. Nutrition recommendation:Regular Last recorded weight is 73.2 kg. Bowel Motility:No BM reported. Labs Reviewed:PO4 1.4, GFR 36,Hct 27.8,Hgb 8.3 Meds Noted:Toprol, Oscal, LR 1000 ml@ 75 ml/hr Additional Notes: Spoke with nursing regarding nutrition follow up due to COVID 19 precautions. Patient currently NPO for possible IVC filter placement. Oral Intake has been 30-100% of meals. Diet supplements BID ordered of Ensure Compact BID providing an additional 240 kcals and 9 gms protein. Agree with diet orders. Monitoring: PO intake, wt, labs every five days
--- NOTE | 2019-07-09 14:07 | PM.IMPN ---
Progress Note: A&P Assessment and Plan (1) DVT (deep venous thrombosis): Qualifiers: Affected thrombotic vein of extremity: peroneal Chronicity: acute DVT location: lower extremity Laterality: left Qualified Code(s): I82.452 - Acute embolism and thrombosis of left peroneal vein Code(s): I82.409 - Acute embolism and thrombosis of unspecified deep veins of unspecified lower extremity Status: Acute Assessment and Plan: Thrombosis in 2 of 2 left peroneal veins on repeat venous Doppler. No right LE DVT noted. NM VQ does show intermediate probability for PE with moderate-sized perfusion defect in anterobasilar segment of RLL, however, PE is low on the suspicion as her respiratory status remains unchanged and unremarkable. She was initially started on therapeutic Lovenox, however, given her EGD findings and lowered hgb, will continue to hold on treatment for now since clots are below the knee. She is having left calf tenderness on exam again today. Normal respiratory status, nontachycardic, normal oxygenation and respiratory rate. Spoke with PCP, Dr. Thompson, who recommended getting General Surgery consultation for possible IVC filter placement Dr. Westbrook evaluated the patient and family is in agreement with IVC filter which was being placed today. Will apply SCDs to unaffected limb for now Will do PT/OT to increase mobility and prevent further clot development Monitor closely (2) Duodenal ulcer: Code(s): K26.9 - Duodenal ulcer, unspecified as acute or chronic, without hemorrhage or perforation Status: Acute Assessment and Plan: Multiple duodenal ulcers, one large, found on EGD per Dr. Ruby during stay. Pathology from duodenal ulcer biopsy read as NONSPECIFIC ACUTE DUODENITIS WITH BENIGN ACUTE ULCER Continue PO Protonix q12hr Will avoid aspirin, NSAIDS and other medications putting her at risk for bleeding including anticoagulation for her DVT at this point Diet per GI recommendations Monitor. Dr. Ruby following and appreciate recommendations. (3) Acute renal failure: Code(s): N17.9 - Acute kidney failure, unspecified Status: Acute Assessment and Plan: Cr improved to 1.40 today; WNL. Likely acute, possibly due to HTN medications/dehydration Will do IVF rehydration Hold Losartan-HCTZ for now Trend BMP (4) Anemia: Qualifiers: Anemia type: unspecified type Qualified Code(s): D64.9 - Anemia, unspecified Code(s): D64.9 - Anemia, unspecified Status: Acute Assessment and Plan: EGD showed duodenal ulcers. Iron studies showed low-normal iron/%sat and low-normal vit B12 and given IV venofer and IM cyanocobalamin. Patient's hemoglobin and Hematocrit was stable at 8.3/27.8% today. She denies any signs of bleeding, melena at the moment or on previous BMs. Avoid nsaids, aspirin, and hold on anticoaguolation for now Monitor closely; trend H&H tomorrow Transfuse prn (5) Hypertension: Code(s): I10 - Essential (primary) hypertension Status: Acute Assessment and Plan: BP 140 sys Will continue home metoprolol HCTZ-losartan held due to BRADLEY Patient daughter, Marci, requested Cardiology consult for establishment of care and for further recommendations on anti-HTN medications. Dr. Mejia evaluated the patient and did not suggest adding any other antihypertensives at this time other than Metoprolol. Monitor (6) COPD (chronic obstructive pulmonary disease): Code(s): J44.9 - Chronic obstructive pulmonary disease, unspecified Status: Chronic Assessment and Plan: No acute issues at the moment; lung exam unremarkable. Continue with her home inhalers. (7) Dementia: [place]
--- NOTE | 2019-07-09 14:23 | PM.PROC ---
Procedure Note - Detailed Date of procedure: 07/09/19 Pre-op diagnosis: DVT Post-op diagnosis: same Procedure performed: IVC Filter Placement Description of procedure: Patient was brought back to laboratory associate suite. She was placed supine laboratory associate table. Time-out was done to confirm patient procedure. His right groin was prepped and draped in sterile fashion using chlorhexidine prep. SonoSite ultrasound was used to identify the right femoral vein. This was visualized as a compressible vessel just medial to the right femoral artery. 1% lidocaine was infiltrated directly over this area. An 18 gauge introducer needle was then advanced under ultrasound guidance directly into the lumen of the right femoral vein. Dark nonpulsatile blood was aspirated. A 0.035 in guidewire was advanced through the needle under fluoroscopic guidance. The guidewire advanced smoothly and was visualized advancing up into the inferior vena cava. The needle was withdrawn leaving the guidewire in place. A small trevor incision was made at the insertion site using an 11 blade scalpel. The 6 [place] dilator and sheath were then advanced over the guidewire under fluoroscopic guidance. The sheath was advanced all the way to the L3 vertebral body, and then once the sheath was at the upper portion of the L3 vertebral body, the dilator and guidewire were removed. The IVC filter was then inserted into the end of the sheath and then the plunger was used to carefully advanced the filter up the length of the sheath. Once the filter was visualized under fluoroscopy at the tip of the sheath, the sheath was slowly withdrawn to allow the filter to deploy. Once the filter was completely expanded, the sheath was removed and pressure was applied at the insertion site. One final fluoroscopic image was obtained visualizing the IVC filter and proper orientation overlying the L3 vertebral body. After holding pressure for 5 minutes, there is no further blood loss and a sterile dressing was applied. Implants: Trapease IVC Filter Anesthesia: local Surgeon: He Westbrook DO Estimated blood loss (mL): 2 Complications: No immediate complications Condition: stable Disposition: ICU Findings: IVC accessed through right femoral vein approach under u/s and fluoroscopic guidance. IVC filter deployed at level of L3 Vertebral body.
[2019-07-09] MEDS: polyethylene glycoL 3350 17 GM POWD.PACK PO (14:45)
[2019-07-09] MEDS: LACTATED RINGERS 1,000 ML 75 ML IV CONT (16:33)
[2019-07-09] MEDS: CITALOPRAM HYDROBROMIDE 20 MG TABLET 40 MG PO (20:28)
[2019-07-10 04:45] VITALS: BP 153/60; PULSE 59; RESP 20; TEMP 36.3; O2SAT 94
[2019-07-10] MEDS: ACETAMINOPHEN 325 MG TABLET 650 MG PO (05:05)
[2019-07-10] MEDS: GABAPENTIN 100 MG CAPSULE PO ×3 (05:05→21:20)
[2019-07-10] MEDS: LACTATED RINGERS 1,000 ML 75 ML IV CONT (05:58)
[2019-07-10] MEDS: ALBUTEROL SULFATE (*SP) AEROSOL 1 PUFF 2 PUFF INHALATION ×3 (06:18→16:50)
[2019-07-10 07:03] LABS: Hematocrit 25.2 % (37.0-47.0); Hemoglobin 7.7 g/dL (12.0-15.0); Mean Corpuscular HGB Conc 30.6 g/dl (32-36); Mean Corpuscular Hemoglobin 26.2 pg (26-34); Mean Corpuscular Volume 85.7 fl (80-100); Mean Platelet Volume 10.2 fl (7.4-10.4); Platelet Count Result 221 k/mm3 (150-375); Red Blood Count 2.94 M/mm3 (4.2-5.4); Red Cell Distribution Width 14.7 % (11.5-14.5); White Blood Count 6.2 K/mm3 (4.5-10.0)
[2019-07-10 07:10] LABS: Blood Urea Nitrogen 16 mg/dL (7-17); Calcium 8.3 mg/dL (8.4-10.2); Carbon Dioxide 25 mmol/L (22-30); Chloride 104 mmol/L (98-107); Estimated CRCL calculation 31 ml/min; Estimated Glomerular Filt Rate 47; Glucose 100 mg/dL (65-105); Magnesium 1.8 mg/dL (1.6-2.3); Potassium 3.7 mmol/L (3.4-5.0); Sodium 134 mmol/L (137-145)
[2019-07-10] MEDS: PANTOPRAZOLE 40 MG TABLET PO ×2 (08:11→20:02)
[2019-07-10 08:12] VITALS: PULSE 60
[2019-07-10] MEDS: ERGOCALCIFEROL 50,000 UNIT CAPSULE 50000 UNITS PO (08:12)
[2019-07-10] MEDS: METOPROLOL SUCCINATE EXT REL 100 MG TABCR PO (08:12)
[2019-07-10 08:18] VITALS: PULSE 60; RESP 20; O2SAT 94
[2019-07-10] MEDS: polyethylene glycoL 3350 17 GM POWD.PACK PO (08:18)
--- NOTE | 2019-07-10 10:55 | PM.PNCARD ---
Progress Note: A&P Assessment and Plan (1) Hypertension: Code(s): I10 - Essential (primary) hypertension Status: Acute Assessment and Plan: At this point, I am going to add amlodipine 2.5 mg p.o. daily to her blood pressure regimen. Okay for discharge from my perspective with follow-up with her PCP (2) Duodenal ulcer: Code(s): K26.9 - Duodenal ulcer, unspecified as acute or chronic, without hemorrhage or perforation Status: Acute Assessment and Plan: no anticoagulation (3) DVT (deep venous thrombosis): Qualifiers: Affected thrombotic vein of extremity: peroneal Chronicity: acute DVT location: lower extremity Laterality: left Qualified Code(s): I82.452 - Acute embolism and thrombosis of left peroneal vein Code(s): I82.409 - Acute embolism and thrombosis of unspecified deep veins of unspecified lower extremity Status: Acute Assessment and Plan: no anticoagulation because of duodenal ulcer and anemia. IVC filter today Additional Plan Subjective Date/time seen: 07/10/19 10:55 Interval history: Patient is a 84 yo F with history of COPD, HLD, HTN and depression who is here for abdominal pain (duodenal ulcers found on EGD this hospital stay), BRADLEY, and left peroneal vein DVT. date of service 07/10/2019: She feels okay today. No chest pain or shortness of breath. Review of Systems Constitutional: Constitutional: Reports as per HPI and Reports no additional constitutional complaints Eyes: Eyes: Reports no additional eye complaints ENT: Reports system reviewed and no additional complaints, except as documented Cardiovascular: Cardiovascular: Reports no additional cardiovascular complaints Respiratory: Respiratory: Reports no additional respiratory complaints Gastrointestinal: Gastrointestinal: Reports as per HPI Genitourinary: Genitourinary: Reports no additional female genitourinary complaints Musculoskeletal: Musculoskeletal: Reports no additional musculoskeletal complaints Integumentary/Breasts: Skin/Breast: Reports system reviewed and no additional complaints, except as docu Neurologic: Reports system reviewed and no additional complaints, except as documented Endocrine: Endocrine: Reports no additional endocrine complaints Hematologic/Lymphatic: Hematologic/Lymphatic: Reports as per HPI Allergic/Immunologic: Allergic/Immunologic: Reports no additional allergic/immunologic complaints Exam Const: General: comfortable and no acute distress Other: Pleasant elderly lady sitting in bed she appears to be comfortable and not in any distress of any sort. HENMT: Mouth: Yes moist mucous membranes Eyes: Sclera: sclerae normal Pupils: Equal, round and reactive pupils present Neck: Neck: no JVD Thyroid: thyroid normal Resp: Effort & Inspection: normal respiratory effort Auscultation: clear to auscultation bilaterally Cardio: Rate: regular rate Rhythm: regular rhythm Heart sounds: Murmur heart sound present systolic II/ and at the left sternal border GI: Auscultation: normal bowel sounds Skin: General skin exam: normal color Neuro: Cranial nerves: Yes Equal, round and reactive pupils present Cognition (Neuro): normal cognition Extrem: General: edema Psych: Appearance: grossly normal Objective Data Vital Signs Vital Signs: Vital Signs - 24 hr 07/09/19 14:08 07/09/19 14:15 07/09/19 14:30 Temperature Pulse Rate 70 76 68 Respiratory Rate 14 16 12 Blood Pressure 140/69 144/73 H 152/52 H Pulse Oximetry 95 92 97 07/09/19 14:53 07/09/19 15:38 07/09/19 17:15 Temperature 36.5 C 36.4 C Pulse Rate 60 60 66 Respiratory Rate 16 18 Blood Pressure 144/68 H 138/52 L Pulse Oximetry 100 96 07/09/19 20:00 07/10/19 04:45 07/10/19 08:12 Temperature 36.3 C L Pulse Rate 66 59 L 60 Respiratory Rate 18 20 Blood Pressure 153/60 H Pulse Oximetry 96 94 07/10/19 08:18 Temperature Pulse Rate 60 Respira
--- NOTE | 2019-07-10 11:00 | WPDGIPROGNO ---
Progress Note: A&P Additional Plan Patient alert this morning. Appears to be at baseline. No additional bleeding reported. She denies abdominal pain. Tolerating diet. She is status post IVC filter. Physical exam reveals her to be alert and comfortable. Not well oriented. HEENT exam unremarkable she is anicteric. Lungs are clear. Heart without murmur. Abdomen is soft nontender with no organomegaly. Labs reveal hemoglobin 7.7, hematocrit 25.2, MCV 85. Impression 1. Duodenal ulcers. One ulcer is particularly huge. Biopsies are benign. Patient now on proton pump inhibitors. Tolerating diet. Plan for follow-up EGD in 2 months given the extreme size of this ulcer. Agree with holding anticoagulation for brief period. I note patient is now status post IVC filter 2. DVT. Clinically resolved. Patient is status post IVC filter. May be okay to re-. Start anticoagulation in a week or 2. Plan it is okay for for discharge from my perspective with anticipation for EGD in 2 months. Continue PPI after discharge. Avoid nonsteroidal anti-inflammatory agents. Subjective Date/time seen: 07/10/19 11:00 Objective Data Vital Signs Vital Signs: Vital Signs - 24 hr 07/09/19 14:08 07/09/19 14:15 07/09/19 14:30 Temperature Pulse Rate 70 76 68 Respiratory Rate 14 16 12 Blood Pressure 140/69 144/73 H 152/52 H Pulse Oximetry 95 92 97 07/09/19 14:53 07/09/19 15:38 07/09/19 17:15 Temperature 36.5 C 36.4 C Pulse Rate 60 60 66 Respiratory Rate 16 18 Blood Pressure 144/68 H 138/52 L Pulse Oximetry 100 96 07/09/19 20:00 07/10/19 04:45 07/10/19 08:12 Temperature 36.3 C L Pulse Rate 66 59 L 60 Respiratory Rate 18 20 Blood Pressure 153/60 H Pulse Oximetry 96 94 07/10/19 08:18 Temperature Pulse Rate 60 Respiratory Rate 20 Blood Pressure Pulse Oximetry 94 Intake/Output Intake/Output: Intake & Output 07/07/19 07/08/19 07/09/19 07/10/19 23:59 23:59 23:59 23:59 Intake Total 1630 2315 1550 1420 Output Total 727 590 9608 250 Balance 1130 6584 349 6892 Meds/Results Medications: Active Medications Generic Name Dose Route Start Last Admin Trade Name Freq PRN Reason Stop Dose Admin Acetaminophen 650 mg 07/07/19 18:58 07/10/19 05:05 Tylenol Tablet PO 650 mg Q6H PRN Administration Mild Pain (1-3) or Fever Hydrocodone Bitart/Acetaminophen 1 tab 07/04/19 19:44 07/09/19 20:28 [place] 5-325 Mg PO 1 tab DAILY PRN Administration Pain 4-10 Albuterol 2 puff 07/04/19 20:00 07/10/19 06:18 Proventil Hfa INHALATION 2 puff QIDRT FREDY Administration Amlodipine Besylate 2.5 mg 07/11/19 09:00 Norvasc PO QAM FREDY Atorvastatin Calcium 10 mg 07/07/19 21:00 07/07/19 20:55 Lipitor PO 10 mg HS FREDY Administration Budesonide/Formoterol Fumarate 2 puff 07/04/19 20:00 07/10/19 06:18 Symbicort 80-4.5 Mcg (*Sp) Inhaler INHALATION 2 puff Q12HRT FREDY Administration Calcium Carbonate 500 mg 07/05/19 09:00 07/10/19 08:14 [place] 500 +D Tablet PO 08/04/19 09:01 500 mg DAILY FREDY Administration Citalopram Hydrobromide 40 mg 07/04/19 21:00 07/09/19 20:28 Celexa PO 40 mg HS FREDY Administration Docusate Sodium 100 mg 07/07/19 15:33 07/09/19 10:51 Colace Capsule PO 100 mg Q12H PRN Administration Constipation Enoxaparin Sodium 72 mg 07/05/19 06:00 07/05/19 05:08 Lovenox SUB-Q 72 mg Q12H FREDY Administration Ergocalciferol 50,000 unit 07/10/19 09:00 07/10/19 08:12 Drisdol PO 50,000 unit We@0900 FREDY Administration Gabapentin 100 mg 07/04/19 22:00 07/10/19 05:05 Neurontin PO 100 mg Q8HR FREDY Administration Hydrochlorothiazide 25 mg 07/06/19 09:00 07/07/19 08:20 Hydrochlorothiazide PO 25 mg QAM FREDY Administration Lactated Ringer's 1,000 mls @ 75 mls/hr 07/08/19 07:45 07/10/19 05:58 Lr - Lactated Ringers Iv IV CONT 75 mls/hr .[id number] FREDY Administration Losartan Pota
[2019-07-10] MEDS: DOCUSATE SODIUM 100 MG CAPSULE PO (12:49)
[2019-07-10] MEDS: BISACODYL 10 MG SUPPOSITORY RECTAL (13:23)
--- NOTE | 2019-07-10 15:33 | PM.IMPN ---
Progress Note: A&P Assessment and Plan (1) Constipation: Code(s): K59.00 - Constipation, unspecified Status: Acute Assessment and Plan: Patient reports constipation since arrival. She has been on MiraLax for the last few days and today she requested a suppository. She has had some relief with the suppository but has still been going back and forth to the bathroom multiple times. She feels at this time if she was to be discharged back to [facility] she was not sure if she could take care of herself with having to go back and forth to the bathroom multiple times and feeling a little weak at this time. Will keep her overnight and see how she is feeling in the morning. Plans for discharge in the morning as long as everything goes accordingly. (2) DVT (deep venous thrombosis): Qualifiers: Affected thrombotic vein of extremity: peroneal Chronicity: acute DVT location: lower extremity Laterality: left Qualified Code(s): I82.452 - Acute embolism and thrombosis of left peroneal vein Code(s): I82.409 - Acute embolism and thrombosis of unspecified deep veins of unspecified lower extremity Status: Acute Assessment and Plan: Thrombosis in 2 of 2 left peroneal veins on repeat venous Doppler. No right LE DVT noted. NM VQ does show intermediate probability for PE with moderate-sized perfusion defect in anterobasilar segment of RLL, however, PE is low on the suspicion as her respiratory status remains unchanged and unremarkable. She was initially started on therapeutic Lovenox, however, given her EGD findings and lowered hgb, will continue to hold on treatment for now since clots are below the knee. Spoke with PCP, Dr. Thompson, who recommended getting General Surgery consultation for possible IVC filter placement Dr. Westbrook evaluated the patient and family is in agreement with IVC filter which was placed on 07/09/2019 She is having left calf tenderness on exam again today. Normal respiratory status, nontachycardic, normal oxygenation and respiratory rate. Will discharge her with IVC filter in place to return to [facility], to follow up with PCP in [address] Ruby in 6 weeks for repeat EEG in 2 months. The patient understands and agrees with the plan. It will be up to her PCP Dr. Thompson as to when it is recommended to start anticoagulation vs waiting until EGD in 2 months for further evaluation of duodenal ulcer healing. (3) Duodenal ulcer: Code(s): K26.9 - Duodenal ulcer, unspecified as acute or chronic, without hemorrhage or perforation Status: Acute Assessment and Plan: Multiple duodenal ulcers, one large, found on EGD per Dr. Ruby during stay. Pathology from duodenal ulcer biopsy read as NONSPECIFIC ACUTE DUODENITIS WITH BENIGN ACUTE ULCER Continue PO Protonix q12hr Will avoid aspirin, NSAIDS and other medications putting her at risk for bleeding including anticoagulation for her DVT at this point Follow up with Dr. Ruby for repeat EGD in 2 months. (4) Acute renal failure: Code(s): N17.9 - Acute kidney failure, unspecified Status: Acute Assessment and Plan: Cr improved to 1.10 today; WNL. Likely acute, possibly due to HTN medications/dehydration Will recheck BMP in 1 week. (5) Anemia: Qualifiers: Anemia type: unspecified type Qualified Code(s): D64.9 - Anemia, unspecified Code(s): D64.9 - Anemia, unspecified Status: Acute Assessment and Plan: EGD showed duodenal ulcers. Iron studies showed low-normal iron/%sat and low-normal vit B12 and given IV venofer and IM cyanocobalamin. Patient's hemoglobin and Hematocrit was stable at 7.7/25.2% today. She denies any signs of bleeding, melena at the moment or on previous BMs. Avoid nsaids, aspirin
[2019-07-10 17:02] VITALS: BP 149/62; PULSE 72; RESP 16; TEMP 36.9; O2SAT 97
[2019-07-10] MEDS: CITALOPRAM HYDROBROMIDE 20 MG TABLET 40 MG PO (20:01)
[2019-07-10] MEDS: metroNIDAZOLE 70 GM VAG GEL.W.APPL 1 APPFUL VAGINAL (20:02)
[2019-07-11] MEDS: GABAPENTIN 100 MG CAPSULE PO (05:41)
[2019-07-11 06:00] VITALS: BP 154/66; PULSE 63; RESP 18; TEMP 36.7; O2SAT 97
[2019-07-11 06:10] LABS: Hematocrit 26.8 % (37.0-47.0); Hemoglobin 7.8 g/dL (12.0-15.0); Mean Corpuscular HGB Conc 29.1 g/dl (32-36); Mean Corpuscular Hemoglobin 26.3 pg (26-34); Mean Corpuscular Volume 90.2 fl (80-100); Mean Platelet Volume 10.8 fl (7.4-10.4); Platelet Count Result 178 k/mm3 (150-375); Red Blood Count 2.97 M/mm3 (4.2-5.4); Red Cell Distribution Width 15.5 % (11.5-14.5); White Blood Count 6.5 K/mm3 (4.5-10.0)
[2019-07-11 06:17] LABS: Blood Urea Nitrogen 13 mg/dL (7-17); Calcium 8.4 mg/dL (8.4-10.2); Carbon Dioxide 23 mmol/L (22-30); Chloride 105 mmol/L (98-107); Estimated CRCL calculation 37 ml/min; Estimated Glomerular Filt Rate 60; Glucose 90 mg/dL (65-105); Potassium 3.7 mmol/L (3.4-5.0); Sodium 133 mmol/L (137-145)
[2019-07-11] MEDS: CYANOCOBALAMIN 1,000 MCG TABLET 1000 MCG PO (08:14)
[2019-07-11] MEDS: AMLODIPINE BESYLATE 2.5 MG TABLET PO (08:14)
[2019-07-11] MEDS: PANTOPRAZOLE 40 MG TABLET PO (08:15)
[2019-07-11] MEDS: polyethylene glycoL 3350 17 GM POWD.PACK PO (08:15)
[2019-07-11 08:16] VITALS: PULSE 66
[2019-07-11] MEDS: METOPROLOL SUCCINATE EXT REL 100 MG TABCR PO (08:16)
[2019-07-11] MEDS: metroNIDAZOLE 70 GM VAG GEL.W.APPL 1 APPFUL VAGINAL (08:16)
[2019-07-11] MEDS: ALBUTEROL SULFATE (*SP) AEROSOL 1 PUFF 2 PUFF INHALATION ×3 (09:00→11:16)
--- NOTE | 2019-07-11 10:22 | PM.PNCARD ---
Progress Note: A&P Assessment and Plan (1) Hypertension: Code(s): I10 - Essential (primary) hypertension Status: Acute Assessment and Plan: At this point, continue current regimen. Okay for discharge from my perspective with follow-up with her PCP (2) Duodenal ulcer: Code(s): K26.9 - Duodenal ulcer, unspecified as acute or chronic, without hemorrhage or perforation Status: Acute Assessment and Plan: no anticoagulation (3) DVT (deep venous thrombosis): Qualifiers: Affected thrombotic vein of extremity: peroneal Chronicity: acute DVT location: lower extremity Laterality: left Qualified Code(s): I82.452 - Acute embolism and thrombosis of left peroneal vein Code(s): I82.409 - Acute embolism and thrombosis of unspecified deep veins of unspecified lower extremity Status: Acute Assessment and Plan: no anticoagulation because of duodenal ulcer and anemia. IVC filter today Additional Plan KCl 40 mEq p.o. x1 because of mild hypokalemia Subjective Date/time seen: 07/11/19 10:22 Interval history: Patient is a 84 yo F with history of COPD, HLD, HTN and depression who is here for abdominal pain (duodenal ulcers found on EGD this hospital stay), BRADLEY, and left peroneal vein DVT. date of service 07/11/2019: She feels okay today. No chest pain or shortness of breath. Review of Systems Constitutional: Constitutional: Reports as per HPI and Reports no additional constitutional complaints Eyes: Eyes: Reports no additional eye complaints ENT: Reports system reviewed and no additional complaints, except as documented Cardiovascular: Cardiovascular: Reports no additional cardiovascular complaints Respiratory: Respiratory: Reports no additional respiratory complaints Gastrointestinal: Gastrointestinal: Reports as per HPI Genitourinary: Genitourinary: Reports no additional female genitourinary complaints Musculoskeletal: Musculoskeletal: Reports no additional musculoskeletal complaints Integumentary/Breasts: Skin/Breast: Reports system reviewed and no additional complaints, except as docu Neurologic: Reports system reviewed and no additional complaints, except as documented Endocrine: Endocrine: Reports no additional endocrine complaints Hematologic/Lymphatic: Hematologic/Lymphatic: Reports as per HPI Allergic/Immunologic: Allergic/Immunologic: Reports no additional allergic/immunologic complaints Exam Const: General: comfortable and no acute distress Other: Pleasant elderly lady sitting in bed she appears to be comfortable and not in any distress of any sort. HENMT: Mouth: Yes moist mucous membranes Eyes: Sclera: sclerae normal Pupils: Equal, round and reactive pupils present Neck: Neck: no JVD Thyroid: thyroid normal Resp: Effort & Inspection: normal respiratory effort Auscultation: clear to auscultation bilaterally Cardio: Rate: regular rate Rhythm: regular rhythm Heart sounds: Murmur heart sound present systolic II/ and at the left sternal border GI: Auscultation: normal bowel sounds Skin: General skin exam: normal color Neuro: Cranial nerves: Yes Equal, round and reactive pupils present Cognition (Neuro): normal cognition Extrem: General: edema Psych: Appearance: grossly normal Objective Data Vital Signs Vital Signs: Vital Signs - 24 hr 07/10/19 17:02 07/11/19 06:00 07/11/19 08:16 Temperature 36.9 C 36.7 C Pulse Rate 72 63 66 Respiratory Rate 16 18 Blood Pressure 149/62 H 154/66 H Pulse Oximetry 97 97 Intake/Output Intake/Output: Intake & Output 07/08/19 07/09/19 07/10/19 07/11/19 23:59 23:59 23:59 23:59 Intake Total 2315 1550 3027 440 Output Total 500 1175 1550 700 Balance 7630 808 6796 -260 Meds/Results Medications: Active Medications Generic Name Dose Route Start Last Admin Trade Name Freq PRN Reason Stop Dose Admin Acetaminophen 650 mg 07/07/19 18:58 07/10/19 05:05 [place]
--- NOTE | 2019-07-11 11:16 | WPDGIPROGNO ---
Progress Note: A&P Additional Plan Patient appears more comfortable this morning. She denies abdominal pain. Apparently tolerating diet without difficulty. Physical exam reveals Vital Signs to be stable. She is afebrile. Lungs are clear. Heart without murmur. Abdomen is soft nontender with no organomegaly. Extremities are currently without swelling or edema. Impression 1. Duodenal ulcers. With extremely large duodenal ulcer identified. Benign histology. Plan is to keep on proton pump inhibitors. Follow-up EGD in 2 months. Avoid nonsteroidal anti-inflammatory agents. 2. DVT. Patient now status post IVC filter. Agree with holding anticoagulation for a time to allow healing of ulcers. Plan is for discharge when primary care service agrees. Subjective Date/time seen: 07/11/19 11:16 Objective Data Vital Signs Vital Signs: Vital Signs - 24 hr 07/10/19 17:02 07/11/19 06:00 07/11/19 08:16 Temperature 36.9 C 36.7 C Pulse Rate 72 63 66 Respiratory Rate 16 18 Blood Pressure 149/62 H 154/66 H Pulse Oximetry 97 97 Intake/Output Intake/Output: Intake & Output 07/08/19 07/09/19 07/10/19 07/11/19 23:59 23:59 23:59 23:59 Intake Total 2315 1550 3027 440 Output Total 500 1175 1550 700 Balance 0241 596 1698 -260 Meds/Results Medications: Active Medications Generic Name Dose Route Start Last Admin Trade Name Freq PRN Reason Stop Dose Admin Acetaminophen 650 mg 07/07/19 18:58 07/10/19 05:05 Tylenol Tablet PO 650 mg Q6H PRN Administration Mild Pain (1-3) or Fever Hydrocodone Bitart/Acetaminophen 1 tab 07/04/19 19:44 07/09/19 20:28 [place] 5-325 Mg PO 1 tab DAILY PRN Administration Pain 4-10 Albuterol 2 puff 07/04/19 20:00 07/11/19 10:02 Proventil Hfa INHALATION 2 puff QIDRT FREDY Administration Amlodipine Besylate 2.5 mg 07/11/19 09:00 07/11/19 08:14 Norvasc PO 2.5 mg QAM FREDY Administration Atorvastatin Calcium 10 mg 07/07/19 21:00 07/07/19 20:55 Lipitor PO 10 mg HS FREDY Administration Budesonide/Formoterol Fumarate 2 puff 07/04/19 20:00 07/11/19 09:00 Symbicort 80-4.5 Mcg (*Sp) Inhaler INHALATION 2 puff Q12HRT FREDY Administration Calcium Carbonate 500 mg 07/05/19 09:00 07/11/19 08:14 [place] 500 +D Tablet PO 08/04/19 09:01 500 mg DAILY FREDY Administration Citalopram Hydrobromide 40 mg 07/04/19 21:00 07/10/19 20:01 Celexa PO 40 mg HS FREDY Administration Cyanocobalamin 1,000 mcg 07/11/19 09:00 07/11/19 08:14 Vitamin B-12 Tab PO 1,000 mcg QAM FREDY Administration Docusate Sodium 100 mg 07/07/19 15:33 07/10/19 12:49 Colace Capsule PO 100 mg Q12H PRN Administration Constipation Enoxaparin Sodium 72 mg 07/05/19 06:00 07/05/19 05:08 Lovenox SUB-Q 72 mg Q12H FREDY Administration Ergocalciferol 50,000 unit 07/10/19 09:00 07/10/19 08:12 Drisdol PO 50,000 unit We@0900 FREDY Administration Gabapentin 100 mg 07/04/19 22:00 07/11/19 05:41 Neurontin PO 100 mg Q8HR FREDY Administration Hydrochlorothiazide 25 mg 07/06/19 09:00 07/07/19 08:20 Hydrochlorothiazide PO 25 mg QAM FREDY Administration Losartan Potassium 100 mg 07/06/19 09:00 07/07/19 08:19 Cozaar PO 100 mg DAILY FREDY Administration Metoprolol Succinate 100 mg 07/06/19 09:00 07/11/19 08:16 Toprol Xl PO 100 mg DAILY FREDY Administration Metronidazole 1 appful 07/10/19 21:00 07/11/19 08:16 Metrogel-Vaginal VAGINAL 07/17/19 09:01 1 appful Q12HR FREDY Administration Pantoprazole Sodium 40 mg 07/05/19 21:00 07/11/19 08:15 Protonix PO 40 mg Q12HR FREDY Administration Polyethylene Glycol 17 gm 07/09/19 09:00 07/11/19 08:15 Miralax PO 17 gm QAM FREDY Administration Radiology Results: ITS Impressions Chest X-Ray 07/04/19 12:14 IMPRESSION: 1. Chronic scarring at the right apex. No acute cardiopulmonary disease. 2. Moderate-sized hiatal hernia. 3. Ca
--- NOTE | 2019-07-11 11:17 | PM.DS ---
DS: Diagnosis Admitting Diagnosis Admitting Diagnosis: Acute embolism and thrombosis of left peroneal vein Discharge Diagnosis (1) DVT (deep venous thrombosis): Qualifiers: Affected thrombotic vein of extremity: peroneal Chronicity: acute DVT location: lower extremity Laterality: left Qualified Code(s): I82.452 - Acute embolism and thrombosis of left peroneal vein Code(s): I82.409 - Acute embolism and thrombosis of unspecified deep veins of unspecified lower extremity Status: Acute Assessment and Plan: Thrombosis in 2 of 2 left peroneal veins on repeat venous Doppler. No right LE DVT noted. NM VQ does show intermediate probability for PE with moderate-sized perfusion defect in anterobasilar segment of RLL, however, PE is low on the suspicion as her respiratory status remains unchanged and unremarkable. She was initially started on therapeutic Lovenox, however, given her EGD findings and lowered hgb, will continue to hold on treatment for now since clots are below the knee. Spoke with PCP, Dr. Thompson, who recommended getting General Surgery consultation for possible IVC filter placement Dr. Westbrook evaluated the patient and family is in agreement with IVC filter which was placed on 07/09/2019 She is having left calf tenderness on exam again today. Normal respiratory status, nontachycardic, normal oxygenation and respiratory rate. Will discharge her with IVC filter in place to return to Assisted Living Facility, to follow up with PCP in [address] Ruby in 6 weeks for repeat EEG in 2 months. The patient understands and agrees with the plan. It will be up to her PCP Dr. Thompson as to when it is recommended to start anticoagulation vs waiting until EGD in 2 months for further evaluation of duodenal ulcer healing. One of the patients daughters has concerns about her returning to [facility] after discharge. The patient walked 120 feet today with just standby assistance from PT which is better than yesterday. The patient was able to get in and out of bed without any issues at all or need of assistance. She will have outpatient physical and occupational therapy set up by her primary care provider. (2) Duodenal ulcer: Code(s): K26.9 - Duodenal ulcer, unspecified as acute or chronic, without hemorrhage or perforation Status: Acute Assessment and Plan: Multiple duodenal ulcers, one large, found on EGD per Dr. Ruby during stay. Pathology from duodenal ulcer biopsy read as NONSPECIFIC ACUTE DUODENITIS WITH BENIGN ACUTE ULCER Continue PO Protonix q12hr Will avoid aspirin, NSAIDS and other medications putting her at risk for bleeding including anticoagulation for her DVT at this point Follow up with Dr. Ruby for repeat EGD in 2 months. (3) Acute renal failure: Code(s): N17.9 - Acute kidney failure, unspecified Status: Acute Assessment and Plan: Cr improved to 1.10 today; WNL. Likely acute, possibly due to HTN medications/dehydration Will recheck BMP in 1 week. (4) Anemia: Qualifiers: Anemia type: unspecified type Qualified Code(s): D64.9 - Anemia, unspecified Code(s): D64.9 - Anemia, unspecified Status: Acute Assessment and Plan: EGD showed duodenal ulcers. Iron studies showed low-normal iron/%sat and low-normal vit B12 and given IV venofer and IM cyanocobalamin. Patient's hemoglobin and Hematocrit was stable at 7.7/25.2% today. She denies any signs of bleeding, melena at the moment or on previous BMs. Avoid nsaids, aspirin, and hold on anticoaguolation for now Check CBC in 1 week. (5) Hypertension: Code(s): I10 - Essential (primary) hypertension Status: Acute Assessment and Plan: BP 150 sys Will continue home metoprolol HCTZ-losart
[2019-07-11] MEDS: POTASSIUM CHLORIDE 20 MEQ TABLET 40 MEQ PO (11:33)
== END 2019-07-11 14:00 | disposition home or self-care (01) | DRG 252 ==
LOC: ANHED 16:19 → ANH3MED 17:17
PROVIDERS: Internal Medicine Gastroenterology; Nurse Practitioner; Physician Assistant; Surgery; Admitting Provider Hospitalist; Emergency Provider Emergency Medicine; PCP Internal Medicine; Visit Provider Internal Medicine
PROC: 0DJ08ZZ Inspection of Upper Intestinal Tract, Via Natural or Artificial Opening Endoscopic (ICD-10-PCS; CPT 43235; principal; 2019-07-05 10:00)
DX: I82.452 Acute embolism and thrombosis of left peroneal vein (principal); K26.0 Acute duodenal ulcer with hemorrhage; N17.9 Acute kidney failure, unspecified; J44.9 Chronic obstructive pulmonary disease, unspecified; E78.5 Hyperlipidemia, unspecified; I10 Essential (primary) hypertension; Z66 Do not resuscitate; Z87.891 Personal history of nicotine dependence; R62.7 Adult failure to thrive; Z86.79 Personal history of other diseases of the circulatory system; F03.90 Unspecified dementia, unspecified severity, without behavioral disturbance, psychotic disturbance, mood disturbance, and anxiety; S22.001D Stable burst fracture of unspecified thoracic vertebra, subsequent encounter for fracture with routine healing; K44.9 Diaphragmatic hernia without obstruction or gangrene; E86.0 Dehydration; F32.9 Major depressive disorder, single episode, unspecified; K59.00 Constipation, unspecified; N76.0 Acute vaginitis
CPT/HCPCS: 36415; 37191; 51701; 71045; 74176; 78580; 80048; 80053; 80069; 81001; 82607; 82728; 82746; 83540; 83550; 83605; 83690; 83735; 83880; 84443; 85014; 85018; 85025; 85027; 86140; 87040; 87086; 88305; 88312; 93005; 93970; 93971; 94640; 96361; 96365; 96366; 96367; 96372; 96374; 96375; 97110; 97116; 97161; 97165; 97530; 97535; 99285; A9270; A9540; C1880; G0378; J1644; J1650; J1756; J2250; J2405; J2704; J3010; J3420; J3475; J3480; J7030; J7040; J7120

== ENCOUNTER 2019-09-07 04:31 | Outpatient (CLI) | payer MEDICARE, SELFPAY ==
[2019-09-07 18:08] LABS: SARS-CoV-2 RNA PCR Negative
== END 2019-09-07 04:32 | disposition home or self-care (01) ==
LOC: ANHCOVIDDT 04:31
PROVIDERS: PCP Internal Medicine; Visit Provider Internal Medicine Gastroenterology
DX: Z01.818 Encounter for other preprocedural examination (principal); Z11.59 Encounter for screening for other viral diseases
CPT/HCPCS: 87635; C9803; U0003

== ENCOUNTER 2019-09-10 00:52 | Day surgery (SDC) | payer MEDICARE, SELFPAY ==
[2019-09-04 11:52] VITALS: BMI 30.3
[2019-09-10 08:15] VITALS: BP 152/67; PULSE 60; RESP 18; TEMP 36.8; O2SAT 95
[2019-09-10] MEDS: LACTATED RINGERS 1,000 ML 150 ML IV CONT (08:29)
--- NOTE | 2019-09-10 08:38 | WPDANESEPPF ---
Anes - Initial Pre Proc Eval Procedure: Operation Date: 09/10/19 09:30 Proposed Procedures p Esophagogastroduodenoscopy - Nick Ruby MD Date/Time: 09/10/19 08:38 Surgeon: Nick Ruby MD Pre Op Diagnosis: Duodenal Ulcer Patient Data Age: 84 Gender: F Height: 4 ft 11 in Weight: 69.1 kg Last Vital Signs Temp 36.8 C 09/10/19 08:15 Pulse 60 09/10/19 08:15 Resp 18 09/10/19 08:15 BP 152/67 H 09/10/19 08:15 Pulse Ox 95 09/10/19 08:15 Allergies Allergy/AdvReac Type Severity Reaction Status Date / Time mushroom AdvReac Unknown Verified 09/10/19 08:11 oyster extract AdvReac Unknown Verified 09/10/19 08:11 Home Medications Medication Instructions Recorded Confirmed Type Caltrate 600-D Plus Minerals 1 tablet PO DAILY 07/04/19 09/10/19 History albuterol sulfate 2 puff INHALATION QID 07/04/19 09/10/19 History atorvastatin 10 mg PO HS 07/04/19 09/10/19 History budesonide-formoterol [Symbicort] 2 puff INHALATION BID 07/04/19 09/10/19 History citalopram 40 mg PO HS 07/04/19 09/10/19 History diclofenac sodium 75 mg PO Q12H 07/04/19 09/10/19 History gabapentin 100 mg PO TID 07/04/19 09/10/19 History hydrocodone-acetaminophen 1 tablet PO DAILY PRN 07/04/19 09/10/19 History metoprolol succinate 100 mg PO DAILY 07/04/19 09/10/19 History ondansetron HCl 4 mg DAILY PRN 07/04/19 09/10/19 History amlodipine 2.5 mg PO QAM #30 tablet 07/10/19 09/10/19 Rx pantoprazole 40 mg PO Q12HR #60 tablet 07/10/19 09/10/19 Rx metronidazole [Metrogel Vaginal] 1 appful VAGINAL Q12HR 6 Days #70 07/11/19 09/10/19 Rx gm levofloxacin 500 mg PO DAILY 09/09/19 09/10/19 History losartan-hydrochlorothiazide 1 tablet PO DAILY 09/09/19 09/10/19 History Patient hx anesthesia problems: none Family hx anesthesia problems: none PMFSH Past Medical History Medical History COPD (chronic obstructive pulmonary disease) Dementia History of depression Hyperlipidemia Hypertension Surgical History Surgical History H/O tubal ligation Family History Family History Mother Hypertension Sibling Hypertension Social History Social History Social History: Patient is . She lives at [facility]. She has 4 daughters. 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 After smoking since the age of 18. She works for a [employer]. Smoking packs per day: 0.75 Smoking cigarettes per day: 15.0 Years smoked: 60 Smoking pack-years: 45.00 Smoking status: Former smoker Tobacco type: cigarettes Alcohol intake: current Drinks per week: 1 Substance use type: does not use Gender identity (if verbalized by the patient): Female Spiritual care concerns: No Agree to blood products: Yes Anes - Eval Final PreProcedure Day of Procedure 09/10/19 08:38 Patient weight: obese Heart: regular rate and rhythm Lungs: clear to auscultation Airway: Mallampati scale class II Neurological: other (alert) Last oral intake: >/= 8 hours ASA classification: IV Emergent: no Anesthetic plan: proceed Anesthesia type and monitoring: general GIVS and standard monitoring Informed Consent: The patient's anesthetic plan and its attendant risks and benefits were discussed with the patient/family/POA. Questions were solicited and answers provided to the satisfaction of the patient/family/POA.
--- NOTE | 2019-09-10 08:52 | WPDGICN ---
Assessment and Plan Assessment and plan (1) Duodenal ulcer: Code(s): K26.9 - Duodenal ulcer, unspecified as acute or chronic, without hemorrhage or perforation Status: Acute Assessment and Plan: Patient with history of large duodenal ulcer some bleeding . she also had significant abnormal on CT scan when hospitalized. Plan is for follow-up EGD at this time to document healing of such a large ulcer. Patient should continue to avoid nonsteroidal anti-inflammatory agents. Patient currently on diclofenac which she be used with caution. Pantoprazole currently 40 mg p.o. b.i.d. may be decreased to once a day of ulcer has begun the heel. (2) Abnormal CT scan: Code(s): R93.89 - Abnormal findings on diagnostic imaging of other specified body structures Status: Acute (3) DVT (deep venous thrombosis): Qualifiers: Affected thrombotic vein of extremity: peroneal Chronicity: acute DVT location: lower extremity Laterality: left Qualified Code(s): I82.452 - Acute embolism and thrombosis of left peroneal vein Code(s): I82.409 - Acute embolism and thrombosis of unspecified deep veins of unspecified lower extremity Status: Acute GI Consult Note Consult date/time: 09/10/19 08:52 HPI: Karime Magana is a 84 year old female seen in evaluation at the request of Dr Thompson. Patient presents for follow-up examination of ulcer. She recently was hospitalized with GI bleeding found to have a large duodenal ulcer. She presents today for follow-up examination. Currently she denies abdominal pain. She denies any bleeding. She feels much stronger. Is eating well. During her hospital stay she was found to have a DVT and IVC filter was placed. Past history is significant for COPD orally dementia depression hypertension and hyperlipidemia. She remains on diclofenac. Also pantoprazole 40 mg p.o. b.i.d.. Review of Systems Review of Systems: All systems reviewed & are unremarkable except as noted in HPI and below PMFSH Past Medical History Medical History COPD (chronic obstructive pulmonary disease) Dementia History of depression Hyperlipidemia Hypertension Surgical History Surgical History H/O tubal ligation Family History Family History Mother Hypertension Sibling Hypertension Social History Social History Social History: Patient is . She lives at [facility]. She has 4 daughters. 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 After smoking since the age of 18. She works for a [employer] company. Smoking packs per day: 0.75 Smoking cigarettes per day: 15.0 Years smoked: 60 Smoking pack-years: 45.00 Smoking status: Former smoker Tobacco type: cigarettes Alcohol intake: current Drinks per week: 1 Substance use type: does not use Gender identity (if verbalized by the patient): Female Spiritual care concerns: No Agree to blood products: Yes Meds Home Medications and Allergies Home Medications Medication Instructions Recorded Confirmed Type Caltrate 600-D Plus Minerals 1 tablet PO DAILY 07/04/19 09/10/19 History albuterol sulfate 2 puff INHALATION QID 07/04/19 09/10/19 History atorvastatin 10 mg PO HS 07/04/19 09/10/19 History budesonide-formoterol [Symbicort] 2 puff INHALATION BID 07/04/19 09/10/19 History citalopram 40 mg PO HS 07/04/19 09/10/19 History diclofenac sodium 75 mg PO Q12H 07/04/19 09/10/19 History gabapentin 100 mg PO TID 07/04/19 09/10/19 History hydrocodone-acetaminophen 1 tablet PO DAILY PRN 07/04/19 09/10/19 History metoprolol succinate 100 mg PO DAILY 07/04/19 09/10/19 History ondansetron HCl 4 mg DAILY PRN 07/04/19 09/10/19 History amlodipine 2.5 mg PO QAM #30 tablet 07/10/19
[2019-09-10] MEDS: BENZOCAINE (*SP) 60 ML SPRAY CAN (HURRICAINE) 1 SPRAY MUCOUS MEM (09:27)
[2019-09-10 09:38] VITALS: BP 173/83; PULSE 63; RESP 17; O2SAT 96
[2019-09-10 09:48] VITALS: BP 178/84; PULSE 64; RESP 18; O2SAT 97
[2019-09-10 09:58] VITALS: BP 176/88; PULSE 60; RESP 18; O2SAT 96
[2019-09-10 10:08] VITALS: BP 184/98; PULSE 61; RESP 19; O2SAT 98
== END 2019-09-10 10:14 | disposition home or self-care (01) ==
PROVIDERS: PCP Internal Medicine; Visit Provider Internal Medicine Gastroenterology
PROC: 0DJ08ZZ Inspection of Upper Intestinal Tract, Via Natural or Artificial Opening Endoscopic (ICD-10-PCS; CPT 43235; principal; 2019-09-10 09:30)
DX: Z09 Encounter for follow-up examination after completed treatment for conditions other than malignant neoplasm (principal); K26.3 Acute duodenal ulcer without hemorrhage or perforation; K44.9 Diaphragmatic hernia without obstruction or gangrene; I82.409 Acute embolism and thrombosis of unspecified deep veins of unspecified lower extremity; J44.9 Chronic obstructive pulmonary disease, unspecified; F03.90 Unspecified dementia, unspecified severity, without behavioral disturbance, psychotic disturbance, mood disturbance, and anxiety; I10 Essential (primary) hypertension; E78.5 Hyperlipidemia, unspecified; Z87.891 Personal history of nicotine dependence; F32.9 Major depressive disorder, single episode, unspecified; E66.9 Obesity, unspecified; Z68.30 Body mass index [BMI] 30.0-30.9, adult
CPT/HCPCS: 43239; 87081; 87635; C9803; J2704; J7120; U0003

== ENCOUNTER 2020-11-17 15:23 | Outpatient (CLI) | payer MEDICARE, SELFPAY ==
--- NOTE | ~2020-11-17 | US_ITS ---
EXAMINATION: US venous doppler LE EXAM DATE: 11/17/2020 16:15 INDICATION: Swelling of lower leg. TECHNIQUE: Multiple grayscale, color flow and Doppler images of the lower extremity deep venous syste ms bilaterally were obtained and reviewed. Comparison is made to prior examination from 07/07/2019. FINDINGS: Right side: The right common femoral, femoral and profunda veins demonstrate normal color flow, respi ratory variation, augmentation and compressibility. Compressibility, color flow confirmed within the right popliteal, posterior tibial, peroneal, and greater saphenous veins. Left side: The left common femoral, femoral and profunda veins demonstrate normal color flow, respira tory variation, augmentation and compressibility. Compressibility, color flow confirmed within the l eft popliteal, posterior tibial, peroneal, and greater saphenous veins. IMPRESSION: No lower extremity deep venous thrombosis bilaterally. Reviewed, dictated and finalized at location A.
== END 2020-11-17 15:24 | disposition home or self-care (01) ==
PROVIDERS: PCP Internal Medicine; Visit Provider Internal Medicine
DX: M79.89 Other specified soft tissue disorders (principal)
CPT/HCPCS: 93970

== ENCOUNTER 2021-06-14 08:38 | Inpatient (IN) | payer MEDICARE, SELFPAY ==
[2021-06-14] VITALS (38 sets, daily range): BP systolic 94–147; BP diastolic 45–73; PULSE 44–80; RESP 13–96; TEMP 36.2–37; O2SAT 60–100; BMI 33.6
--- NOTE | ~2021-06-14 | XR_ITS ---
EXAMINATION: XR chest 2V DATE: 06/14/2021 09:37 INDICATION: Chest pain and cough TECHNIQUE: frontal and lateral views of the chest were obtained. COMPARISON: Chest radiograph and CT abdomen and pelvis dated 07/04/19 FINDINGS: Small amount of gas within a moderate-sized hiatal hernia which accounts for the retrocardiac opacity at the medial left lower lung zone. Unchanged elongated nodular opacity at the right upper lung zone most likely atelectasis/scarring which was present and without significant increased FDG uptake on P ET study dated 06/18/2014. Subtle new opacities at the right lower lung zone. No pneumothorax or defini tive pleural effusion. Cardiomegaly. IMPRESSION: 1. Subtle new opacities at the right lower lung zone which could represent mild pulmonary edema, atel ectasis or pneumonia. 2. Cardiomegaly. 3. Moderate-sized hiatal hernia. Reviewed, dictated and finalized at location B. IMPRESSION: 1. Subtle new opacities at the right lower lung zone which could represent mild pulmonary edema, atelectasis or pneumonia. 2. Cardiomegaly. 3. Moderate-sized hiatal hernia.
--- NOTE | ~2021-06-14 | US_ITS ---
EXAMINATION: US venous doppler [facility] DATE: 06/14/2021 17:40 INDICATION: Pain and swelling of the left lower limb. TECHNIQUE: Rucker scale images without and with compression and Doppler images of the bilateral lower e xtremity veins were obtained. COMPARISON: None FINDINGS: The right common femoral vein, profunda femoral vein, femoral vein, popliteal vein, peroneal trunk, p osterior tibial veins, and greater saphenous vein are patent. The left common femoral vein, profunda femoral vein, femoral vein, popliteal vein, peroneal trunk, po sterior tibial veins, and greater saphenous vein are patent. IMPRESSION: 1. Patent bilateral lower extremity veins. No evidence of deep venous thrombosis. Reviewed, dictated and finalized at location K. IMPRESSION: 1. Patent bilateral lower extremity veins. No evidence of deep venous thrombosi s.
--- NOTE | 2021-06-14 08:58 | ECG_ITS ---
Measurements Intervals [place] Rate: 59 P: 38 IL: 148 QRS: 5 QRSD: 110 T: 4 QT: 435 QTc: 431 Interpretive Statements SINUS BRADYCARDIA LOW QRS VOLTAGE IN PRECORDIAL LEADS INCOMPLETE RIGHT BUNDLE BRANCH BLOCK ST DEVIATION AND T-WAVE ABNORMALITY, POSSIBLE ISCHEMIA Electronically Signed On 06-14-2021 14:31:33 CDT by Claudy Gaffney M.D.
[2021-06-14 09:10] LABS: Basophils Absolute Auto 0.1 K/mm3 (0.0-0.1); Basophils Percent Auto 1.2 % (0.2-1.2); Eosinophils Absolute Auto 0.1 K/mm3 (0-0.3); Hemoglobin 11.3 g/dL (12.0-15.0); Immature Granulocyte Absolute 0.02 K/mm3 (0.00-0.031); Immature Granulocyte Percent A 0.3 % (0-0.5); Lymphocytes Absolute Auto 1.24 K/mm3 (0.9-3.2); Lymphocytes Percent Auto 20.8 % (18.3-44.2); Mean Corpuscular HGB Conc 30.5 g/dl (32-36); Mean Corpuscular Hemoglobin 27.7 pg (26-34); Mean Corpuscular Volume 90.7 fl (80-100); Mean Platelet Volume 10.8 fl (7.4-10.4); Monocytes Absolute Auto 0.5 K/mm3 (0.1-0.6); Neutrophils Absolute Auto 4.1 K/mm3 (1.3-6.7); Neutrophils Percent Auto 68.7 % (45.5-73.1); Platelet Count Result 164 k/mm3 (150-375); Red Blood Count 4.08 M/mm3 (4.2-5.4); Red Cell Distribution Width 15.5 % (11.5-14.5)
[2021-06-14] MEDS: ASPIRIN 81 MG CHEWABLE TABLET 324 MG PO (09:14)
--- NOTE | 2021-06-14 09:22 | ED.CHESTPAIN ---
HPI - Chest Pain General Chief Complaint: Chest Pain Stated Complaint: chest pain PHYSICIAN SURGEON, now resolved Time Seen by Provider: 06/14/21 09:15 Source: patient and family Limitations: no limitations History of Present Illness HPI narrative: 86-year-old female presents emergency room from an assisted living facility where she has her own apartment. She woke up this morning having some sharp pain into her chest. No radiation of the pain. She never anything like this before. It hurts when she tries to move or take a deep breath. Denies any recent cough congestion chills or fevers. Recently she has had some swelling into her legs and her doctor put on some additional medications to help with that and she did have significant reduction in the swelling in her lower extremities. She does have a history of a DVT in the lower extremities about 2 years ago. She had peptic ulcer disease so they did not anticoagulate her at that time but put a [place] filter and. She had no problems or complications since that time. No history of any cardiac abnormalities. Related Data Home Medications Medication Instructions Recorded Confirmed Caltrate 600-D Plus Minerals 1 tablet PO DAILY 07/04/19 06/14/21 albuterol sulfate 2 puff INHALATION QID 07/04/19 06/14/21 atorvastatin 10 mg PO HS 07/04/19 06/14/21 budesonide-formoterol [Symbicort] 2 puff INHALATION BID 07/04/19 06/14/21 citalopram 40 mg PO HS 07/04/19 06/14/21 diclofenac sodium 75 mg PO Q12H 07/04/19 01/14/21 gabapentin 100 mg PO TID 07/04/19 06/14/21 hydrocodone-acetaminophen 1 tablet PO DAILY PRN 07/04/19 06/14/21 metoprolol succinate 100 mg PO DAILY 07/04/19 06/14/21 ondansetron HCl 4 mg DAILY PRN 07/04/19 06/14/21 levofloxacin 500 mg PO DAILY 09/09/19 01/14/21 losartan-hydrochlorothiazide 1 tablet PO DAILY 09/09/19 01/14/21 Tylenol 1,000 mg Q8-10H 06/14/21 06/14/21 Allergies Allergy/AdvReac Type Severity Reaction Status Date / Time mushroom AdvReac Unknown Verified 06/14/21 09:03 oyster extract AdvReac Unknown Verified 06/14/21 09:03 Review of Systems Review of Systems: CONSTITUTIONAL: Denies fever, chills, or sweats. EYES: Denies visual changes, redness, or discharge. ENT: Denies rhinorrhea, congestion, sore throat, or otalgia. CARDIOVASCULAR: Denies palpitations, or edema. RESPIRATORY: Denies cough or dyspnea. GASTROINTESTINAL: Denies abdominal pain, nausea, vomiting, or diarrhea. GENITOURINARY: Denies dysuria or hematuria. SKIN: Denies rash or itching. MUSCULOSKELETAL: Denies back pain, joint pain, or myalgia. NEUROLOGIC: Denies headache, numbness, or weakness. PSYCHIATRIC: Denies anxiety or depression. [facility] Past Medical History Medical History COPD (chronic obstructive pulmonary disease) Dementia History of depression Hyperlipidemia Hypertension Surgical History Surgical History H/O tubal ligation Family History Family History Mother Hypertension Sibling Hypertension Social History Social History Social History: Patient is . She lives at [facility]. She has 4 daughters. 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 After smoking since the age of 18. She works for a [employer]. Smoking packs per day: 0.75 Smoking cigarettes per day: 15.0 Years smoked: 60 Smoking pack-years: 45.00 Smoking status: Former smoker Tobacco type: cigarettes Alcohol intake: current Drinks per week: 1 Substance use type: does not use Gender identity (if verbalized by the patient): Female Spiritual care concerns: No Agree to blood products: Yes Exam Narrative: APPEARANCE: Well appearing, no pain or distress, well-nourished. Head normocephalic and atraumatic. EYES: PERRLA/EOMI, conjunctivae very clear.
[2021-06-14 09:32] LABS: Partial Thromboplastin Time 25.8 SECONDS (22.3-36.8); Prothrombin Time 13.1 Seconds (11.1-14.7)
[2021-06-14 10:20] LABS: Alanine Aminotransferase 13 U/L (4-35); Alkaline Phosphatase 46 U/L (38-126); Anion Gap 6 mmol/L (8-16); Aspartate Amino Transferase 28 U/L (14-36); Bilirubin,Total 0.7 mg/dL (0.2-1.3); Blood Urea Nitrogen 32 mg/dL (7-17); Calcium 8.7 mg/dL (8.4-10.2); Carbon Dioxide 28 mmol/L (22-30); Chloride 106 mmol/L (98-107); Estimated CRCL calculation 27 ml/min; Estimated Glomerular Filt Rate 39; Glucose 100 mg/dL (65-110); Lipase 114 U/L (23-300); Sodium 140 mmol/L (137-145)
[2021-06-14 10:35] LABS: Troponin I 0.059 ng/mL (0.000-0.034)
[2021-06-14 12:28] LABS: Troponin I 0.077 ng/mL (0.000-0.034)
--- NOTE | 2021-06-14 12:45 | PM.IMHP ---
H&P: HPI History of Present Illness Date/Time: 06/14/21 12:45 Chief Complaint: Left chest pain. Narrative: This is a very pleasant 86-year-old female with hypertension, GERD, peptic ulcers, COPD, and DVT status post IVC filter insertion who presented to the emergency department via EMS from her assisted living facility for evaluation of left-sided chest pain. She woke up this morning with non radiating sharp pain in the mid to left chest region, worse with movement and deep inspiration. By the time she arrived today the pain had lessened and described it more as a mild soreness. She was given 4 baby aspirins and it resolved and has not recurred. Initially she thought perhaps her symptoms were related to indigestion however it is unusual for her to have those symptoms so early in the morning. She also felt a bit short of breath at the time though she goes on to say that it is not unusual for her. Additionally she noticed an increase in her lower extremity edema and her diuretic dose was increased several weeks ago with marked improvement. Her EKG showed some ST segment changes indicating possible ischemia and her initial troponins have been modestly elevated and she is being admitted in this setting for further evaluation. 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 With further questioning she denies fever, chills, sweats, sinus congestion, sore throat, cough, and sick contacts. She also denies exertional chest pain, orthopnea, and paroxysmal nocturnal dyspnea. Review of Systems Review of Systems: 12 systems were reviewed. No epigastric or abdominal pain. She denies bloating and belching. She denies nausea and vomiting. No melena or hematochezia. Except as documented, all other systems were reviewed and are negative. [facility] Past Medical History Medical History (Updated 06/14/21 @ 12:53 by Nory Guy PA-C) Chronic anemia Chronic kidney disease Chronic obstructive pulmonary disease Deep venous thrombosis Dementia Depression Gastroesophageal reflux disease Hyperlipidemia Hypertension Peptic ulcer disease Vitamin B12 deficiency Surgical History Surgical History (Updated 06/14/21 @ 12:50 by Nory Guy PA-C) History of inferior vena caval filter placement History of tubal ligation Family History Family History Mother Hypertension Sibling Hypertension Social History Social History (Updated 06/14/21 @ 21:44 by Nory Guy PA-C) Social History: She lives in assisted living at the [facility]. She is and has 4 daughters. Retired from a [employer] company. She smoked about 0.75 packs of cigarettes a day for 60 years quit within the last couple of years. No alcohol or illicit drug abuse. Surrogate decision maker: Marci Charlton, daughter. Code status: Full code. Spiritual care concerns: No Agree to blood products: Yes Meds Home Medications and Allergies Home Medications Medication Instructions Recorded Confirmed Type Caltrate 600-D Plus Minerals 1 tablet PO DAILY 07/04/19 06/14/21 History albuterol sulfate 2 puff INHALATION QID 07/04/19 06/14/21 History atorvastatin 10 mg PO HS 07/04/19 06/14/21 History budesonide-formoterol [Symbicort] 2 puff INHALATION BID 07/04/19 06/14/21 History citalopram 40 mg PO HS 07/04/19 06/14/21 History gabapentin 100 mg PO TID 07/04/19 06/14/21 History hydrocodone-acetaminophen 1 tablet PO DAILY PRN 07/04/19 06/14/21 History metoprolol succinate 100 mg PO DAILY 07/04/19 06/14/21 History ondansetron HCl 4 mg DAILY PRN 07/04/19 06/14/21 History pantoprazole 40 mg PO Q12HR #60 tablet 07/10/19 06/14/21 Rx acetaminophen 500 mg PO Q8H PRN 06/14/21 06/14/21 History amlodipine 5 mg PO DAILY 06/14/21 06/14/21 History cetirizine [Zyrtec] 10 mg PO DAILY 06/14/21 06/14/21 History cholecalciferol (vitamin D3) 1,250 mcg PO WEEKLY
--- NOTE | 2021-06-14 13:51 | ADMGEN ---
This patient, Karime Magana, was admitted to IMU Room 206-02 at 1335 on 06/14/2021. Report received from Debbie KO. Patient/family oriented to hospital policies and general routines including ID bracelet, bed and alarms, visiting hours, pain management, procedures, bathroom and other care routines, personal items, smoking policy, room service/diet, and visiting hours. Information on how to activate the Rapid Response Team has been discussed. Patient/Family are encouraged to report perceived risks to care and to ask questions if they do not understand what they are told or what they should do.
[2021-06-14 15:37] LABS: Troponin I 0.091 ng/mL (0.000-0.034)
[2021-06-14] MEDS: ATORVASTATIN 10 MG TABLET PO (22:33)
[2021-06-14] MEDS: CITALOPRAM HYDROBROMIDE 20 MG TABLET 40 MG PO (22:33)
[2021-06-14] MEDS: GABAPENTIN 100 MG CAPSULE PO (22:34)
[2021-06-15] VITALS (15 sets, daily range): BP systolic 113–147; BP diastolic 52–87; PULSE 37–68; RESP 14–20; TEMP 36.3–36.7; O2SAT 91–100
[2021-06-15 04:46] LABS: Hematocrit 34.4 % (37.0-47.0); Hemoglobin 10.9 g/dL (12.0-15.0); Mean Corpuscular HGB Conc 31.7 g/dl (32-36); Mean Corpuscular Hemoglobin 27.6 pg (26-34); Mean Corpuscular Volume 87.1 fl (80-100); Mean Platelet Volume 10.1 fl (7.4-10.4); Platelet Count Result 162 k/mm3 (150-375); Red Blood Count 3.95 M/mm3 (4.2-5.4); Red Cell Distribution Width 15.3 % (11.5-14.5); White Blood Count 5.5 K/mm3 (4.5-10.0)
[2021-06-15 05:02] LABS: Anion Gap 6 mmol/L (8-16); Blood Urea Nitrogen 31 mg/dL (7-17); Calcium 8.6 mg/dL (8.4-10.2); Carbon Dioxide 27 mmol/L (22-30); Chloride 105 mmol/L (98-107); Estimated Glomerular Filt Rate 39; Glucose 101 mg/dL (65-110); Potassium 3.5 mmol/L (3.4-5.0); Sodium 138 mmol/L (137-145)
[2021-06-15 06:58] LABS: Free T4 Free Thyroxine Reflex 1.33 ng/dL (0.78-2.19)
[2021-06-15] MEDS: ALBUTEROL SULFATE (*SP) AEROSOL 1 PUFF 2 PUFF INHALATION ×3 (08:12→20:39)
[2021-06-15] MEDS: FLUTICASONE/SALMETEROL 45-21 MCG INHALER 1 PUFF 2 PUFF INHALATION ×2 (08:13→20:39)
[2021-06-15] MEDS: FUROSEMIDE 40 MG TABLET PO (08:32)
[2021-06-15] MEDS: CYANOCOBALAMIN 1,000 MCG TABLET 1000 MCG PO (08:32)
[2021-06-15] MEDS: polyethylene glycoL 3350 17 GM POWD.PACK PO (08:32)
[2021-06-15] MEDS: GABAPENTIN 100 MG CAPSULE PO ×3 (08:32→20:59)
[2021-06-15] MEDS: PANTOPRAZOLE 40 MG TABLET PO ×2 (08:33→21:00)
[2021-06-15] MEDS: LORATADINE 10 MG TABLET PO (08:33)
[2021-06-15] MEDS: ASPIRIN 81 MG ENTERIC TABLET PO (08:37)
--- NOTE | 2021-06-15 10:22 | PM.IMPN ---
Progress Note: A&P Assessment and Plan (1) Chest pain: Code(s): R07.9 - Chest pain, unspecified Status: Acute Assessment and Plan: Serial troponin Reviewed ECG Cardiology consult Aspirin atorvastatin beta-krishan Patient has episodes of bradycardia pending cardiology evaluation may need to decrease the dose of metoprolol . (2) Elevated troponin: Code(s): R77.8 - Other specified abnormalities of plasma proteins Status: Acute Assessment and Plan: As above (3) Chronic kidney disease: Code(s): N18.9 - Chronic kidney disease, unspecified Status: Acute Assessment and Plan: Avoid nephrotoxic medication monitor CMP (4) Chronic anemia: Code(s): D64.9 - Anemia, unspecified Status: Acute Assessment and Plan: Probably anemia of chronic disease monitor (5) Gastroesophageal reflux disease: Code(s): K21.9 - Gastro-esophageal reflux disease without esophagitis Status: Chronic Assessment and Plan: Continue pantoprazole (6) DVT (deep venous thrombosis): Qualifiers: Affected thrombotic vein of extremity: peroneal Chronicity: acute DVT location: lower extremity Laterality: left Qualified Code(s): I82.452 - Acute embolism and thrombosis of left peroneal vein Code(s): I82.409 - Acute embolism and thrombosis of unspecified deep veins of unspecified lower extremity Status: Acute Assessment and Plan: Patient is not candidate for anticoagulation patient had IVC filter placed (7) Shortness of breath: Code(s): R06.02 - Shortness of breath Status: Acute Assessment and Plan: Multifactorial probably related to chronic COPD Probably patient has acute CHF exacerbation most likely diastolic will give trial of diuresis Chest x-ray more inclined to be atelectasis I do not think patient has pneumonia Subjective Date/time seen: 06/15/21 10:22 Interval history: 86-year-old female with hypertension, GERD, peptic ulcers, COPD, and DVT status post IVC filter insertion who presented to the emergency department via EMS from her assisted living facility for evaluation of left-sided chest pain. She woke up this morning with non radiating sharp pain in the mid to left chest region, worse with movement and deep inspiration has mildly elevated troponin cardiology was consulted, chest x-ray shows probable pulmonary edema versus atelectasis versus pneumonia patient does not have any sign or symptom of pneumonia patient have shortness of breath BNP was elevated. Patient feels weak complain of shortness of breath with activity Patient denies fever headache chest pain I am seeing the patient for shortness of breath chest pain Exam Narrative: Alert Chest decreased air entry bilateral Abdomen nontender nondistended CVS S1 + S2 Positive Lower extremity edema Objective Data Vital Signs Vital Signs: Vital Signs - 24 hr 06/14/21 10:30 06/14/21 10:45 06/14/21 10:53 Temperature Pulse Rate 57 L 46 L 48 L Respiratory Rate 19 14 18 Blood Pressure 126/54 L Pulse Oximetry 96 95 97 06/14/21 11:00 06/14/21 11:01 06/14/21 11:15 Temperature Pulse Rate 49 L 49 L 55 L Respiratory Rate 18 16 15 Blood Pressure 122/57 L Pulse Oximetry 99 99 96 06/14/21 11:16 06/14/21 11:30 06/14/21 11:45 Temperature Pulse Rate 55 L 51 L 59 L Respiratory Rate 13 18 20 Blood Pressure 134/66 Pulse Oximetry 98 97 06/14/21 12:00 06/14/21 12:15 06/14/21 12:30 Temperature Pulse Rate 56 L 55 L 56 L Respiratory Rate 21 H 19 15 Blood Pressure Pulse Oximetry 06/14/21 12:45 06/14/21 12:55 06/14/21 13:00 Temperature Pulse Rate 48 L 46 L 44 L Respiratory Rate 18 17 19 Blood Pressure 94/62 L Pulse Oximetry 97 97 06/14/21 13:01 06/14/21 13:15 06/14/21 13:16 Temperature Pulse Rate 44 L 49 L 49 L Respiratory Rate 20 21 H 18 Blood Pressure 102/45 L 108/47 L Pulse Oxim
[2021-06-15 10:49] LABS: NT Pro B Type Natriuretic Pept 2730 pg/mL (5-100)
[2021-06-15] MEDS: amLODIPine BESYLATE 5 MG TABLET PO (10:52)
--- NOTE | 2021-06-15 13:08 | PM.CNCAR ---
Assessment and Plan Assessment and plan (1) Chest pain: Code(s): R07.9 - Chest pain, unspecified Status: Acute Assessment and Plan: Patient presents with chest discomfort which appears somewhat atypical for angina, but she does have elevated troponins and some slight (nonspecific) EKG changes. However there are no segmental wall motion abnormalities on her echo which is favorable. Pulmonary embolus is unlikely as she has a IVC filter present, though I felt there was some right ventricular enlargement. I am still concerned that this may represent unstable angina and recommend repeating an EKG and ordering a Lexiscan for further information. Patient and daughter are not interested at this point in pursuing cardiac catheterization/PCI. In addition, she is a DNR. However, if the Lexiscan did show significant ischemia this episode of chest pain could be a ?warning sign? of heart disease/heart attack that we should pay attention to, and we would want to treat her for CAD/unstable angina with aspirin, Plavix, high-dose statins, metoprolol, nitrates etc. Marci will talk to her sister and let us know we should schedule a Lexiscan. Add Plavix, continue PPI. Discontinue Plavix if Lexiscan does not show ischemia. (2) Elevated troponin: Code(s): R77.8 - Other specified abnormalities of plasma proteins Status: Acute Assessment and Plan: As above (3) Bradycardia: Code(s): R00.1 - Bradycardia, unspecified Status: Acute Assessment and Plan: Mild bradycardia, heart rates in the upper 30s at times, taking metoprolol succinate 100 mg daily. Daughter knows patient feels tired a lot. Patient thinks that that may be age-related, which certainly may be true, but will reduce the metoprolol dose to avoid problems. (4) Stage 3b chronic kidney disease (CKD): Code(s): N18.32 - Chronic kidney disease, stage 3b Status: Acute Assessment and Plan: Creatinine is at baseline. Since the edema is controlled and creatinine is at baseline I would continue current dose of Lasix. (5) Hypertension: Code(s): I10 - Essential (primary) hypertension Status: Acute Assessment and Plan: At goal (6) Chronic obstructive pulmonary disease: Code(s): J44.9 - Chronic obstructive pulmonary disease, unspecified Status: Acute Assessment and Plan: Uses inhalers (7) History of duodenal ulcer: Code(s): Z87.19 - Personal history of other diseases of the digestive system Status: Acute Assessment and Plan: History of duodenal ulcer, so at aspirin use could be associated with GI problems. I would feel more comfortable encouraging aspirin use if we had a abnormal Lexiscan since the benefit will at rate the risk. History of Present Illness History of Present Illness Consult date/time: 06/15/21 13:08 Consult reason: chest pain Reason For Visit: Chest Pain, Elevated Trop Narrative: Karime Magana is an 83-year-old female whom we were asked to see at the request of MACK Guy for advice and opinion regarding her chest pain and elevated troponins, in consultation. She has a history of hypertension, GERD, peptic ulcers and anemia in June 2019, COPD, and DVT status post IVC filter in June 2019. Chronic kidney disease. No history of heart disease. The patient presented to the emergency room from her assisted living on 06/14/2021 complaining of sharp chest pain in the left chest, worse with movement and deep inspiration per prior histories. Patient is not able to give me much detail but just states that she has some soreness the left chest which seem to be worse when she was moving around. It has resolved. She does have some chronic BAKER, and also states that she has some chronic intermittent pleuritic chest discomfort. Troponins were 0.059, 0.077 and 0.091. Daughter Marci is concerned about the patient's bradycardia, and also wonders
--- NOTE | 2021-06-15 13:23 | ECG_ITS ---
Measurements Intervals [place] Rate: 59 P: 44 W[place]: 154 QRS: 5 QRSD: 105 T: -1 QT: 435 QTc: 434 Interpretive Statements SINUS BRADYCARDIA WITH SINUS ARRHYTHMIA INCOMPLETE RIGHT BUNDLE BRANCH BLOCK [90+ ms QRS DURATION, TERMINAL R IN V1/V2, 40+ ms S IN I/aVL/V4/V5/V6] COMPARED TO ECG 06/14/2021 08:43:40 THE PREVIOUSLY NOTED MILD T-WAVE INVERSION HAS RESOLVED Electronically Signed On 06-15-2021 16:54:12 CDT by Cassie Waller M.D.
[2021-06-15] MEDS: ALBUTEROL SULFATE (*SP) INHALER 1 PUFF (14:01)
--- NOTE | 2021-06-15 16:57 | ECHO_ITS ---
Patient Info Name: Karime Magana Age: 86 years : 1935 Gender: Female Ht: 59 in Wt: 166 lbs BSA: 1.81 m2 HR: 62 bpm BP: 147 / 60 mmHg Heart Rhythm: Bradycardia Technical Quality: Fair Exam Date: 06/15/2021 7:51 AM Exam Location: [facility] Patient Status: Outpatient Admit Date: 06/14/2021 Staff Ordering Physician: Nory Guy PA-C Digital Communications Manager: Evita Ceballos RDCS Attending Provider: Richie Hernandez M.A., MD Referring Physician: Christina Steven ; Exam Type: CA echo doppler color flow Study Info Indications - CHEST PAIN, ELEVATED TROPONIN Complete two-dimensional, color flow and Doppler transthoracic echocardiogram is performed. Summary 1. Complete two-dimensional, color flow and Doppler transthoracic echocardiogram is performed. 2. Normal left ventricular size with mild concentric hypertrophy. Good systolic function of all segments, estimated ejection fraction 65-70%, with no segmental wall motion abnormalities. Grade 2 diastolic dysfunction is present. 3. Left atrial chamber dimension is mildly enlarged. 4. Right ventricular chamber dimension is mildly enlarged with mild hypokinesis. 5. There is mild tricuspid valve regurgitation. 6. Mild pulmonary hypertension, estimated pulmonary arterial systolic pressure is 43 mmHg. 7. There is moderate aortic atherosclerosis of the aortic root. 8. Normal sinus rhythm. 9. Somewhat technically difficult study. Left Ventricle Left ventricular chamber dimension is normal. Left ventricular systolic function is normal, estimated at 65-70%. There is mildly increased left ventricular wall thickness. Left ventricular septal wall motion is normal. The left ventricular diastolic function is grade II diastolic dysfunction. Right Ventricle Right ventricular chamber dimension is mildly enlarged with mild hypokinesis. Right ventricular systolic function is reduced. Left Atria Left atrial chamber dimension is mildly enlarged. Right Atria Right atrial chamber dimension is normal. Aortic Valve The aortic valve is trileaflet. There is no aortic valve sclerosis. There is no aortic valve stenosis. There is trace aortic valve regurgitation. There is mild aortic valve calcification. Pulmonic Valve The pulmonic valve is normal. There is no pulmonic valve stenosis. There is no pulmonic regurgitation. Mitral Valve The mitral valve has normal leaflets. There is no mitral valve stenosis. There is trace mitral valve regurgitation. The mitral valve annulus is moderately calcified. Tricuspid Valve The tricuspid valve leaflets are normal. There is no significant tricuspid valve stenosis. There is mild tricuspid valve regurgitation. Mild pulmonary hypertension, estimated pulmonary arterial systolic pressure is 43 mmHg. Pericardium/Pleural The pericardium appears normal. There is no pericardial effusion. Inferior Vena Cava Normal inferior vena cava with >50% collapse upon inspiration consistent with Empty right atrial pressure, 10 mmHg. Aorta The aortic root size at the sinus of Valsalva is normal. The prox ascending aorta size is normal. There is moderate aortic atherosclerosis of the aortic root. Left Ventricular Outflow Tract Name Value Normal LVOT 2D
[2021-06-15] MEDS: CLOPIDOGREL BISULFATE 300 MG TABLET PO (17:07)
[2021-06-15] MEDS: FUROSEMIDE INJ 40 MG/4 ML VIAL 20 MG IV PUSH (17:07)
[2021-06-15] MEDS: ATORVASTATIN 10 MG TABLET PO (20:59)
[2021-06-15] MEDS: CITALOPRAM HYDROBROMIDE 20 MG TABLET 40 MG PO (20:59)
[2021-06-16] VITALS (9 sets, daily range): BP systolic 121–135; BP diastolic 47–64; PULSE 47–106; RESP 16–19; TEMP 36.2–36.5; O2SAT 94–99
[2021-06-16] MEDS: ALBUTEROL SULFATE (*SP) AEROSOL 1 PUFF 2 PUFF INHALATION ×4 (09:21→19:51)
[2021-06-16] MEDS: FLUTICASONE/SALMETEROL 45-21 MCG INHALER 1 PUFF 2 PUFF INHALATION ×2 (09:21→19:51)
[2021-06-16] MEDS: polyethylene glycoL 3350 17 GM POWD.PACK PO (10:36)
[2021-06-16] MEDS: PANTOPRAZOLE 40 MG TABLET PO ×2 (10:36→20:37)
[2021-06-16] MEDS: METOPROLOL SUCCINATE EXT REL 25 MG TABCR PO (10:36)
[2021-06-16] MEDS: LORATADINE 10 MG TABLET PO (10:37)
[2021-06-16] MEDS: FUROSEMIDE INJ 40 MG/4 ML VIAL 20 MG IV PUSH ×2 (10:37→18:20)
[2021-06-16] MEDS: ASPIRIN 81 MG ENTERIC TABLET PO (10:38)
[2021-06-16] MEDS: CLOPIDOGREL BISULFATE 75 MG TABLET PO (10:38)
[2021-06-16] MEDS: CYANOCOBALAMIN 1,000 MCG TABLET 1000 MCG PO (10:38)
[2021-06-16] MEDS: ERGOCALCIFEROL 50,000 UNIT CAPSULE 50000 UNITS PO (10:38)
[2021-06-16] MEDS: amLODIPine BESYLATE 5 MG TABLET PO (10:38)
[2021-06-16] MEDS: GABAPENTIN 100 MG CAPSULE PO ×3 (10:39→20:37)
--- NOTE | 2021-06-16 11:12 | PM.IMPN ---
Progress Note: A&P Assessment and Plan (1) Chest pain: Code(s): R07.9 - Chest pain, unspecified Status: Acute Assessment and Plan: Serial troponin Reviewed ECG Cardiology consult Aspirin atorvastatin beta-krishna Episodes of bradycardia metoprolol dose was adjusted by Cardiology Patient and family declined stress test Plan for medical management Medication adjustment pending per Cardiology today . (2) Elevated troponin: Code(s): R77.8 - Other specified abnormalities of plasma proteins Status: Acute Assessment and Plan: As above (3) Chronic kidney disease: Code(s): N18.9 - Chronic kidney disease, unspecified Status: Acute Assessment and Plan: Avoid nephrotoxic medication monitor CMP (4) Chronic anemia: Code(s): D64.9 - Anemia, unspecified Status: Acute Assessment and Plan: Probably anemia of chronic disease monitor (5) Gastroesophageal reflux disease: Code(s): K21.9 - Gastro-esophageal reflux disease without esophagitis Status: Chronic Assessment and Plan: Continue pantoprazole (6) DVT (deep venous thrombosis): Qualifiers: Affected thrombotic vein of extremity: peroneal Chronicity: acute DVT location: lower extremity Laterality: left Qualified Code(s): I82.452 - Acute embolism and thrombosis of left peroneal vein Code(s): I82.409 - Acute embolism and thrombosis of unspecified deep veins of unspecified lower extremity Status: Acute Assessment and Plan: Patient is not candidate for anticoagulation patient had IVC filter placed (7) Shortness of breath: Code(s): R06.02 - Shortness of breath Status: Acute Assessment and Plan: Multifactorial probably related to chronic COPD Probably patient has acute CHF exacerbation most likely diastolic treated with IV diuresis Chest x-ray more inclined to be atelectasis I do not think patient has pneumonia Subjective Date/time seen: 06/16/21 11:12 Interval history: 86-year-old female with hypertension, GERD, peptic ulcers, COPD, and DVT status post IVC filter insertion who presented to the emergency department via EMS from her assisted living facility for evaluation of left-sided chest pain. She woke up this morning with non radiating sharp pain in the mid to left chest region, worse with movement and deep inspiration has mildly elevated troponin cardiology was consulted, chest x-ray shows probable pulmonary edema versus atelectasis versus pneumonia patient does not have any sign or symptom of pneumonia patient have shortness of breath BNP was elevated. Cardiology was consulted patient was planned to have stress test today but family and patient has decline plan for medical management and medication adjustment today per Cardiology anticipate discharge in the next 24 hours Patient feels weak complain of shortness of breath with activity but better than yesterday Patient denies fever headache chest pain I am seeing the patient for shortness of breath chest pain Exam Narrative: Alert Chest decreased air entry bilateral Abdomen nontender nondistended CVS S1 + S2 Positive Lower extremity edema Objective Data Vital Signs Vital Signs: Vital Signs - 24 hr 06/15/21 12:00 06/15/21 14:00 06/15/21 16:00 Temperature 97.4 F L 97.6 F Pulse Rate 45 L 57 L 62 Respiratory Rate 20 20 Blood Pressure 113/87 137/53 L Pulse Oximetry 100 93 06/15/21 20:00 06/15/21 20:44 06/15/21 23:42 Temperature 97.9 F Pulse Rate 68 60 Respiratory Rate 16 Blood Pressure 123/54 L Pulse Oximetry 93 93 06/16/21 04:00 06/16/21 08:00 06/16/21 09:25 Temperature 97.4 F L 97.7 F Pulse Rate 65 58 L Respiratory Rate 16 19 Blood Pressure 129/63 135/52 L Pulse Oximetry 97 99 94 06/16/21 10:36 Temperature Pulse Rate 72 Respiratory Rate Blood Pressure Pulse Oximetry Intake/Output Intake/Output: Intake & Output
--- NOTE | 2021-06-16 12:09 | PM.PNCARD ---
Progress Note: A&P Assessment and Plan (1) Chest pain: Code(s): R07.9 - Chest pain, unspecified Status: Acute Assessment and Plan: Patient presents with chest discomfort which appears somewhat atypical for angina, but she does have elevated troponins and some slight (nonspecific) EKG changes. However there are no segmental wall motion abnormalities on her echo which is favorable. Pulmonary embolus is unlikely as she has a IVC filter present, though I felt there was some right ventricular enlargement. Family declined further evaluation with Lexiscan However patient likely had some type of cardiac event, acute coronary syndrome/NSTEMI Added Plavix rather than aspirin (due to history of duodenal ulcers), continue PPI. Increase Atorvastatin dose per guidelines nitroglycerin p.r.n. Continue metoprolol--dose reduced to 50 mg daily Okay for discharge today or tomorrow, can follow-up with me if desired. (2) Elevated troponin: Code(s): R77.8 - Other specified abnormalities of plasma proteins Status: Acute Assessment and Plan: As above (3) Bradycardia: Code(s): R00.1 - Bradycardia, unspecified Status: Acute Assessment and Plan: Mild bradycardia, heart rates in the upper 30s at times, taking metoprolol succinate 100 mg daily. Daughter knows patient feels tired a lot. Patient thinks that that may be age-related, which certainly may be true, but will reduce the metoprolol dose to avoid problems. (4) Acute on chronic diastolic CHF (congestive heart failure): Code(s): I50.33 - Acute on chronic diastolic (congestive) heart failure Status: Acute Assessment and Plan: ProBNP was 2700, history of did edema and BAKER. I was not very impressed with the patient's chest x-ray as showing much CHF. Recommend changing IV furosemide back to 40 mg p.o. daily. Discussed with daughter Ann-Marie, I think furosemide 40 mg qd would be appropriate rather than reducing to 20 mg daily since patient may have had a recent exacerbation of CHF. (5) Stage 3b chronic kidney disease (CKD): Code(s): N18.32 - Chronic kidney disease, stage 3b Status: Acute Assessment and Plan: Creatinine is at baseline. Since the edema is controlled and creatinine is at baseline I would continue current dose of Lasix, 40 mg qd. (6) Hypertension: Code(s): I10 - Essential (primary) hypertension Status: Acute Assessment and Plan: At goal (7) Chronic obstructive pulmonary disease: Code(s): J44.9 - Chronic obstructive pulmonary disease, unspecified Status: Acute Assessment and Plan: Uses inhalers (8) History of duodenal ulcer: Code(s): Z87.19 - Personal history of other diseases of the digestive system Status: Acute Assessment and Plan: History of duodenal ulcer, so at aspirin use could be associated with GI problems. Subjective Date/time seen: 06/16/21 12:09 Interval history: Patient seen yesterday for chest pain, elevated troponins. Date of service 06/16/2021: After further discussion with the patient and her daughters, they decided to proceed with the Lexiscan then changed their minds, saying they thought it was just too much to do, so the Lexiscan was canceled. The patient has had no further problems with chest pain. She concedes decision making to her daughters. Purchase bed with physical therapy, no chest pain, some BAKER. Troponins nory to 0.91. Telemetry shows heart rate is usually 70s-80s, dropping to upper 40s at night. Review of Systems Constitutional: Constitutional: Reports fatigue Eyes: Eyes: Reports no additional eye complaints ENT: Denies Normal hearing present Cardiovascular: Cardiovascular: Denies chest pain, Denies pedal edema, Denies leg edema and Denies palpitations Respiratory: Respiratory: Denies chest congestion, Denies dyspnea and Reports dyspnea on exertion Gastrointestinal: Gas
[2021-06-16 16:34] LABS: EDCOVIDSCREEN Negative (Negative)
[2021-06-16] MEDS: CITALOPRAM HYDROBROMIDE 20 MG TABLET 40 MG PO (20:37)
[2021-06-16] MEDS: ATORVASTATIN 20 MG TABLET PO (20:38)
[2021-06-17] VITALS (10 sets, daily range): BP systolic 118–127; BP diastolic 53–68; PULSE 53–94; RESP 12–24; TEMP 36.3–36.4; O2SAT 94–98
[2021-06-17] MEDS: ALBUTEROL SULFATE (*SP) AEROSOL 1 PUFF 2 PUFF INHALATION ×2 (08:25→12:37)
[2021-06-17] MEDS: FLUTICASONE/SALMETEROL 45-21 MCG INHALER 1 PUFF 2 PUFF INHALATION (08:29)
[2021-06-17] MEDS: GABAPENTIN 100 MG CAPSULE PO ×2 (08:42→12:20)
[2021-06-17] MEDS: ASPIRIN 81 MG ENTERIC TABLET PO (08:42)
[2021-06-17] MEDS: CYANOCOBALAMIN 1,000 MCG TABLET 1000 MCG PO (08:42)
[2021-06-17] MEDS: CLOPIDOGREL BISULFATE 75 MG TABLET PO (08:42)
[2021-06-17] MEDS: FUROSEMIDE INJ 40 MG/4 ML VIAL 20 MG IV PUSH (08:42)
[2021-06-17] MEDS: METOPROLOL SUCCINATE EXT REL 50 MG TABCR PO (08:43)
[2021-06-17] MEDS: PANTOPRAZOLE 40 MG TABLET PO (08:43)
[2021-06-17] MEDS: amLODIPine BESYLATE 5 MG TABLET PO (08:43)
[2021-06-17] MEDS: LORATADINE 10 MG TABLET PO (08:43)
--- NOTE | 2021-06-17 11:08 | PM.PNCARD ---
Progress Note: A&P Assessment and Plan (1) Chest pain: Code(s): R07.9 - Chest pain, unspecified Status: Acute Assessment and Plan: Patient presents with chest discomfort which appears somewhat atypical for angina, but she does have elevated troponins and some slight (nonspecific) EKG changes. However there are no segmental wall motion abnormalities on her echo which is favorable. Pulmonary embolus is unlikely as she has a IVC filter present, though I felt there was some right ventricular enlargement. Family declined further evaluation with Lexiscan However patient likely had some type of cardiac event, acute coronary syndrome/NSTEMI Added Plavix rather than aspirin (due to history of duodenal ulcers), continue PPI. Increase Atorvastatin dose per guidelines nitroglycerin p.r.n. Continue metoprolol 50mg daily Okay for discharge today (2) Elevated troponin: Code(s): R77.8 - Other specified abnormalities of plasma proteins Status: Acute Assessment and Plan: As above (3) Bradycardia: Code(s): R00.1 - Bradycardia, unspecified Status: Acute Assessment and Plan: Mild bradycardia, heart rates in the upper 30s at times, taking metoprolol succinate 100 mg daily. Daughter knows patient feels tired a lot. Patient thinks that that may be age-related, which certainly may be true, but will reduce the metoprolol dose to avoid problems. (4) Acute on chronic diastolic CHF (congestive heart failure): Code(s): I50.33 - Acute on chronic diastolic (congestive) heart failure Status: Acute Assessment and Plan: ProBNP was 2700, history of did edema and BAKER. I was not very impressed with the patient's chest x-ray as showing much CHF. Discharge on 40mg p.o. furosemide daily (5) Stage 3b chronic kidney disease (CKD): Code(s): N18.32 - Chronic kidney disease, stage 3b Status: Acute Assessment and Plan: Creatinine is at baseline. Since the edema is controlled and creatinine is at baseline I would continue current dose of Lasix, 40 mg qd. (6) Hypertension: Code(s): I10 - Essential (primary) hypertension Status: Acute Assessment and Plan: At goal (7) Chronic obstructive pulmonary disease: Code(s): J44.9 - Chronic obstructive pulmonary disease, unspecified Status: Acute Assessment and Plan: Uses inhalers (8) History of duodenal ulcer: Code(s): Z87.19 - Personal history of other diseases of the digestive system Status: Acute Assessment and Plan: History of duodenal ulcer, so at aspirin use could be associated with GI problems. Subjective Date/time seen: 06/17/21 11:08 Interval history: Patient seen yesterday for chest pain, elevated troponins. Date of service 06/16/2021: After further discussion with the patient and her daughters, they decided to proceed with the Lexiscan then changed their minds, saying they thought it was just too much to do, so the Lexiscan was canceled. The patient has had no further problems with chest pain. She concedes decision making to her daughters. Purchase bed with physical therapy, no chest pain, some BAKER. Troponins nory to 0.91. Telemetry shows heart rate is usually 70s-80s, dropping to upper 40s at night. Date of service 06/17/2021: She is feeling better today. Denies any recurrence of chest pain. She has baseline shortness of breath and BAKER but this is nothing new or different. Review of Systems Constitutional: Constitutional: Reports fatigue and Reports weakness Eyes: Eyes: Reports no additional eye complaints ENT: Denies Normal hearing present Cardiovascular: Cardiovascular: Denies chest pain, Denies pedal edema, Denies leg edema, Denies palpitations, Denies dyspnea and Reports dyspnea on exertion Respiratory: Respiratory: Denies chest congestion, Denies dyspnea and Reports dyspnea on exertion Gastrointestinal: Gastrointes
--- NOTE | 2021-06-17 13:04 | PM.DS ---
DS: Admitting Diagnosis Discharge Date 06/17/2021 Admitting Diagnosis Chest pain DS: Discharge Diagnosis Discharge Diagnosis (1) Chest pain: Code(s): R07.9 - Chest pain, unspecified Status: Acute Assessment and Plan: Serial troponin mild up trend Reviewed ECG Cardiology consulted Aspirin, Plavix atorvastatin beta-krishna Episodes of bradycardia metoprolol dose was lowered by Cardiology Patient and family declined stress test Plan for medical management Okay to discharge per Cardiology . (2) Elevated troponin: Code(s): R77.8 - Other specified abnormalities of plasma proteins Status: Acute Assessment and Plan: As above (3) Chronic kidney disease: Code(s): N18.9 - Chronic kidney disease, unspecified Status: Acute Assessment and Plan: Avoid nephrotoxic medication monitor CMP (4) Chronic anemia: Code(s): D64.9 - Anemia, unspecified Status: Acute Assessment and Plan: Probably anemia of chronic disease monitor (5) Gastroesophageal reflux disease: Code(s): K21.9 - Gastro-esophageal reflux disease without esophagitis Status: Chronic Assessment and Plan: Continue pantoprazole (6) DVT (deep venous thrombosis): Qualifiers: Affected thrombotic vein of extremity: peroneal Chronicity: acute DVT location: lower extremity Laterality: left Qualified Code(s): I82.452 - Acute embolism and thrombosis of left peroneal vein Code(s): I82.409 - Acute embolism and thrombosis of unspecified deep veins of unspecified lower extremity Status: Acute Assessment and Plan: Patient is not candidate for anticoagulation patient had IVC filter placed (7) Shortness of breath: Code(s): R06.02 - Shortness of breath Status: Acute Assessment and Plan: Multifactorial probably related to chronic COPD Probably patient has acute CHF exacerbation most likely diastolic treated with IV diuresis Chest x-ray more inclined to be atelectasis I do not think patient has pneumonia DS: Summary Hospital Course Hospital Course: See above Time Spent with Patient Time attestation: Total time spent providing and/or coordinating discharge services: 40 minutes Exam Narrative: Narrative: Pleasany elderly lady sitting in the chair. Alert and oriented. Const: Comfortable and no acute distress; No confusion Orientation/consciousness: No confusion HENMT: No epistaxis, moist mucous membranes Eyes: General: appearance normal, both eyes and all related structures EOM: EOMs intact bilaterally Neck: Neck: supple and no JVD Resp: Normal respiratory effort, clear to auscultation bilaterally Cardio: Regular rate and Rhythm: No murmur rubs or gallops GI: Soft, nondistended, nontender Skin: Normal color and no rashes or lesions noted Neuro: Alert and oriented x3 no focal neurological deficits Extrem: General: no edema and no pedal edema Other: Dorsalis pedis pulses intact Psych: Mental Status: mental status grossly normal Affect: normal affect DS: Data Data Completed and Pending Completed studies during hospitalization: Exam Type: CA echo doppler color flow Study Info Indications - CHEST PAIN, ELEVATED TROPONIN Complete two-dimensional, color flow and Doppler transthoracic echocardiogram is performed. Summary 1. Complete two-dimensional, color flow and Doppler transthoracic echocardiogram is performed. 2. Normal left ventricular size with mild concentric hypertrophy. Good systolic function of all segments, estimated ejection fraction 65-70%, with no segmental wall motion abnormalities. Grade 2 diastolic dysfunction is present. 3. Left atrial chamber dimension is mildly enlarged. 4. Right ventricular chamber dimension is mildly enlarged with mild hypokinesis. 5. There is mild tricuspid valve regurgitation. 6. Mild pulmonary hyp
--- NOTE | 2021-06-17 13:43 | PCPTNOTE ---
Patient refused therapy at this time due to being discharged soon. Patient reports she has been up exercising and does not wish to do more exercises at this time. Educated patient on the benefits of therapy however patient continued to decline.
== END 2021-06-17 14:30 | disposition home health service (06) | DRG 291 ==
LOC: ANHED 09:15 → ANHIMU 14:14
PROVIDERS: Physician Assistant; Admitting Provider Internal Medicine; Emergency Provider Emergency Medicine; PCP Internal Medicine; Visit Provider Internal Medicine
DX: I13.0 Hypertensive heart and chronic kidney disease with heart failure and stage 1 through stage 4 chronic kidney disease, or unspecified chronic kidney disease (principal); I50.33 Acute on chronic diastolic (congestive) heart failure; R07.89 Other chest pain; N18.32 Chronic kidney disease, stage 3b; J44.9 Chronic obstructive pulmonary disease, unspecified; Z20.822 Contact with and (suspected) exposure to COVID-19; D63.1 Anemia in chronic kidney disease; E53.8 Deficiency of other specified B group vitamins; E78.5 Hyperlipidemia, unspecified; F03.90 Unspecified dementia, unspecified severity, without behavioral disturbance, psychotic disturbance, mood disturbance, and anxiety; F32.A Depression, unspecified; K21.9 Gastro-esophageal reflux disease without esophagitis; R94.31 Abnormal electrocardiogram [ECG] [EKG]; R77.8 Other specified abnormalities of plasma proteins; R60.0 Localized edema; R00.1 Bradycardia, unspecified; Z87.891 Personal history of nicotine dependence; Z66 Do not resuscitate; Z86.718 Personal history of other venous thrombosis and embolism; Z95.828 Presence of other vascular implants and grafts; Z87.11 Personal history of peptic ulcer disease
CPT/HCPCS: 36415; 71046; 80048; 80053; 83690; 83735; 83880; 84439; 84443; 84480; 84484; 85025; 85027; 85610; 85730; 87426; 93005; 93306; 93970; 94640; 96374; 96376; 97161; 97165; 97530; 97535; 99285; A9270; C9803; G0378; J1940

== ENCOUNTER 2022-09-06 13:03 | Inpatient (IN) | payer MEDICARE, MEDICAID, SELFPAY ==
[2022-09-06] VITALS (28 sets, daily range): BP systolic 94–124; BP diastolic 39–76; PULSE 56–70; RESP 12–20; TEMP 36.1–36.8; O2SAT 92–100; BMI 31.4
--- NOTE | ~2022-09-06 | CT_ITS ---
EXAMINATION: CT cervical spine wo con DATE: 09/06/2022 15:16 INDICATION: neck pain TECHNIQUE: Computed tomography (CT) of the cervical spine was performed without intravenous contrast. Automated exposure control and iterative reconstruction technique were employed. The dose-length pro duct was 478.84 mGy-cm. COMPARISON: X-ray chest 09/06/2022 and 10/01/2018; PET/CT 06/18/2014. FINDINGS: Vertebral Body Alignment: Intact. 3 mm anterolisthesis at C4-5. 2 mm anterolisthesis at C7-T1. Both a re likely on a degenerative basis given the associated degenerative changes. Craniocervical and atlantoaxial alignment: Moderate degenerative change. Alignment intact. Osseous structures/fracture: No evidence of a lytic or blastic process in the visualized spine. No e vidence of acute fracture. Bilateral mastoid fluid. 11 mm soft tissue density mass in the proximal le ft external auditory canal/middle ear, with adjacent osseous erosion. Cervical soft tissues: The paraspinal soft tissues planes are maintained. Partially calcified 2.0 x 0 .6 cm right upper lobe mass with surrounding scar, not significantly changed from the prior chest rad iographs, increased calcification and decreased size since the prior PET/CT, likely representing an i nflammatory lesion. Degenerative changes: Degenerative changes, without severe neural foraminal or central canal narrowin g. IMPRESSION: No acute fracture or traumatic malalignment in the cervical spine. Likely left cholesteatoma, consider nonemergent outpatient MRI for further characterization. Reviewed, dictated and finalized at location K. IMPRESSION: No acute fracture or traumatic malalignment in the cervical spine. Likely left cholesteatoma, consider nonemergent outpatient MRI for further [place] acterization.
--- NOTE | ~2022-09-06 | US_ITS ---
EXAMINATION: US venous doppler UE RT DATE: 09/10/2022 16:19 INDICATION: Right upper limb swelling, erythema and calor. TECHNIQUE: Grayscale images without and with compression and Doppler images of the right upper extrem ity veins were obtained. COMPARISON: None. FINDINGS: The right internal jugular vein, subclavian vein, axillary vein, brachial vein, basilic vein, cephali c vein, radial vein, and ulnar vein are patent. IMPRESSION: 1. Patent right upper extremity veins. No evidence of venous thrombosis. Reviewed, dictated and finalized at location A.
--- NOTE | ~2022-09-06 | CT_ITS ---
EXAMINATION: CT brain wo con INDICATION: Weakness COMPARISON: 06/18/2014 TECHNIQUE: Standard unenhanced head CT. The dose-length product (DLP) was 681.00 mGy-cm. The mA was a djusted according to patient size. Iterative reconstruction technique was employed. FINDINGS: There is no acute intraparenchymal hemorrhage. No evidence of mass lesion. No evidence of a cute infarction. There is mild periventricular and subcortical hypodensity probably related to small vessel ischemic disease. There is mild prominence of the sulci and ventricles related to cerebral atr ophy. Intracranial calcified cerebral atherosclerosis is noted. There are no extra-axial collections. There is no mass effect or midline shift. Changes in the right globe are likely from ocular lens zeb denise. There are changes of partial left mastoidectomy. IMPRESSION: 1. No acute intracranial abnormality. 2. Age related findings. Reviewed, dictated and finalized at location L.
--- NOTE | ~2022-09-06 | XR_ITS ---
EXAMINATION: XR tibia fibula LT 2V, XR knee LT 3V DATE: 09/06/2022 15:36 INDICATION: Left knee and lower leg pain post fall TECHNIQUE: 1. Anteroposterior, oblique and lateral views of the left knee were obtained. 2. Anteroposterior and lateral views of the left tibia and fibula were obtained. COMPARISON: Left knee radiographs dated 03/23/2016 FINDINGS: Alignment is normal. No fracture. Again seen is moderate to severe joint space narrowing and moderate -sized marginal osteophytes at the medial compartment of the left knee. Tiny marginal osteophytes at the lateral and patellofemoral compartments. No left knee joint effusion. A profile portion of the shannan int space at the left ankle and visualized mid and hindfoot appear relatively preserved. No ankle melvi nt effusion. Mild subcutaneous edema along the lateral aspect of the distal thigh, calf and overlying the lateral malleolus. IMPRESSION: 1. No acute osseous abnormality at the left knee or lower leg. 2. 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 Reviewed, dictated and finalized at location A. IMPRESSION: 1. No acute osseous abnormality at the left knee or lower leg. 2. Moderate to severe medial compartment predominant tricompartmental osteoarth ritis at the left knee.
--- NOTE | ~2022-09-06 | MR_ITS ---
MRI of the brain Clinical History: CVA Technique: Axial and sagittal T1-weighted images were acquired. These were followed by axial T2-weigh roxie, diffusion weighted, gradient, and FLAIR images. Findings: There is no acute infarct, intracranial hemorrhage, or mass lesion. There are moderate director of planning elizabeth white matter changes in the periventricular white matter bilaterally. Ventricles and subarachnoid spaces are mildly dilated. Orbits are unremarkable. Paranasal sinuses and mastoid air cells are clear. Major intracranial flow voids are grossly intact. Sagittal midline structures are intact. IMPRESSION: No acute abnormality. Moderate chronic microvascular ischemic change. Reviewed, dictated and finalized at location .
--- NOTE | ~2022-09-06 | XR_ITS ---
EXAMINATION: XR chest 1V portable INDICATION: Shortness of breath TECHNIQUE: Portable AP chest at 1408 hours COMPARISON: 09/10/2022 FINDINGS: Left basilar airspace opacities persist with slight improvement. There is no pneumothorax. The cardiomediastinal silhouette is stable. IMPRESSION: 1. Improved left basilar airspace opacity, consistent with improving atelectasis versus pneumonia plu s or minus small pleural effusion. Reviewed, dictated and finalized at location A. IMPRESSION: 1. Improved left basilar airspace opacity, consistent with improving atelectasi s versus pneumonia plus or minus small pleural effusion.
--- NOTE | ~2022-09-06 | CT_ITS ---
EXAMINATION: CT abdomen pelvis w con INDICATION: Weakness and back pain, anemia TECHNIQUE: Computed tomographic images of the abdomen and pelvis were obtained after the administrati on of 100 cc of Omnipaque 350 intravenous contrast. The dose-length product (DLP) was 1090.64 mGy-cm. Automated exposure control and iterative reconstruction technique were employed. COMPARISON: 07/04/2019 FINDINGS: There is a small left pleural effusion. Cardiomegaly is noted. There is mild atelectasis of the visualized lung bases. There is a moderate-sized sliding hiatal hernia. There is a 2.4 cm cyst o f the left hepatic lobe. The spleen, pancreas, gallbladder, and adrenal glands are normal. The kidney s are unremarkable. No pathologically enlarged abdominal or pelvic lymph nodes are identified. No jeana e intraperitoneal gas or evidence of bowel obstruction. There is calcified atherosclerosis of the aor ta and many of the other arteries. There has been interval insertion of an inferior vena cava filter. Colonic diverticulosis is present without evidence of diverticulitis. There is severe lumbar spondyl osis. There is a chronic T11 burst fracture. IMPRESSION: 1. No CT correlate for the patient's symptoms. Reviewed, dictated and finalized at location L.
--- NOTE | ~2022-09-06 | XR_ITS ---
Clinical Indication: Shortness of breath AP and lateral views of the chest: Comparison: 06/14/2021 Findings: There is suggestion of hazy retrocardiac airspace disease. Stable focal nodular opacity at the right lung apex. Cardiomediastinal silhouette is within normal limits. Severe compression fractu re of T11 present. Impression: Hazy retrocardiac airspace disease. Correlate for small left pleural effusion versus left basilar ate lectasis/edema. Stable right apical nodule. Stability over this time interval suggests benignity. Severe compression fracture of T11. Reviewed, dictated and finalized at location . Impression: Hazy retrocardiac airspace disease. Correlate for small left pleural effusion v ersus left basilar atelectasis/edema. Stable right apical nodule. Stability over this time interval suggests benignit y. Severe compression fracture of T11.
--- NOTE | ~2022-09-06 | XR_ITS ---
EXAMINATION: XR chest 1V portable INDICATION: Wheezing TECHNIQUE: Portable AP chest at 1222 hours COMPARISON: 09/06/2022 FINDINGS: Left basilar airspace opacities persist without significant change. There is no pneumothora x. The cardiomediastinal silhouette is stable. IMPRESSION: 1. Stable left basilar airspace opacity, consistent with atelectasis versus pneumonia with or without small pleural effusion. Reviewed, dictated and finalized at location A. IMPRESSION: 1. Stable left basilar airspace opacity, consistent with atelectasis versus pne umonia with or without small pleural effusion.
--- NOTE | ~2022-09-06 | XR_ITS ---
EXAMINATION: XR knee RT min 4V DATE: 09/06/2022 16:18 INDICATION: Bruising at the right knee post fall TECHNIQUE: Anteroposterior, 2 oblique and crosstable lateral views of the right knee were obtained COMPARISON: None. FINDINGS: Alignment is normal. No fracture. Mild joint space narrowing the medial compartment although joint s pace narrowing can be underestimated on nonweightbearing imaging. Enthesopathic consultation at the a nterior tibial tubercle. No joint effusion/layering lipohemarthrosis. Soft tissues are unremarkable. IMPRESSION: 1. No right knee joint effusion or acute osseous abnormality. Reviewed, dictated and finalized at location A.
--- NOTE | 2022-09-06 13:09 | ECG_ITS ---
Measurements Intervals [place] Rate: 66 P: 50 NJ: 153 QRS: 18 QRSD: 135 T: 19 QT: 440 QTc: 461 Interpretive Statements SINUS RHYTHM RIGHT BUNDLE BRANCH BLOCK [120+ ms QRS DURATION, UPRIGHT V1, 40+ ms S IN I/aVL/V4/V5/V6] COMPARED TO ECG 06/15/2021 15:54:03 SINUS RHYTHM NOW PRESENT RIGHT BUNDLE-BRANCH BLOCK NOW PRESENT Electronically Signed On 09-06-2022 13:57:32 CDT by Arnulfo Rodriguez M.D.
[2022-09-06 13:26] LABS: Basophils Absolute Auto 0.1 K/mm3 (0.0-0.1); Basophils Percent Auto 1.5 % (0.2-1.2); Eosinophils Absolute Auto 0.1 K/mm3 (0-0.3); Eosinophils Percent Auto 1.1 % (0-4.4); Hematocrit 22.4 % (37.0-47.0); Immature Granulocyte Absolute 0.02 K/mm3 (0.00-0.031); Immature Granulocyte Percent A 0.4 % (0-0.5); Lymphocytes Absolute Auto 0.85 K/mm3 (0.9-3.2); Lymphocytes Percent Auto 15.9 % (18.3-44.2); Mean Corpuscular HGB Conc 26.8 g/dl (32-36); Mean Corpuscular Volume 82.1 fl (80-100); Monocytes Absolute Auto 0.5 K/mm3 (0.1-0.6); Monocytes Percent Auto 8.8 % (2.6-8.5); Neutrophils Absolute Auto 3.9 K/mm3 (1.3-6.7); Neutrophils Percent Auto 72.3 % (45.5-73.1); Platelet Count Result 263 k/mm3 (150-375); Red Blood Count 2.73 M/mm3 (4.2-5.4); Red Cell Distribution Width 15.6 % (11.5-14.5); White Blood Count 5.3 K/mm3 (4.5-10.0)
[2022-09-06 13:39] LABS: Alanine Aminotransferase 14 U/L (6-35); Albumin Level 4.3 g/dL (3.5-5.1); Alkaline Phosphatase 46 U/L (38-126); Anion Gap 7 mmol/L (8-16); Aspartate Amino Transferase 22 U/L (14-36); Bilirubin,Total 0.4 mg/dL (0.2-1.3); Blood Urea Nitrogen 23 mg/dL (7-17); Calcium 8.6 mg/dL (8.4-10.2); Carbon Dioxide 26 mmol/L (22-30); Chloride 103 mmol/L (98-107); Estimated CRCL calculation 27 ml/min; Estimated Glomerular Filt Rate 42; Glucose 108 mg/dL (65-110); Potassium 3.8 mmol/L (3.4-5.0); Sodium 136 mmol/L (137-145)
[2022-09-06 13:40] LABS: Hypochromasia 1+ (NORMAL); Platelet Estimate Adequate (Adequate)
[2022-09-06 13:42] LABS: Anisocytosis 1+ (NORMAL); Ovalocytes 1+ (NORMAL)
[2022-09-06 13:43] LABS: Schistocytes None Seen (NORMAL)
--- NOTE | 2022-09-06 15:18 | ED.GENADULT ---
HPI - General Adult General Chief complaint: Shortness of Breath/Dyspnea Stated complaint: numbness to face - normal for pt Time Seen by Provider: 09/06/22 14:37 Source: patient, family (daughter), RN notes reviewed and old records reviewed Mode of arrival: EMS Limitations: altered mental status History of Present Illness HPI narrative: This is an 87 year old female with history of COPD, DVT, GERD who presents from skilled nursing for evaluation of multiple complaints by family. Nursing staff initially reported that patient complained to skilled nursing about facial numbness but told them it was chronic. Then it was reported that patient was complaining of shortness of breath. Her family states patient fell out of bed a couple days ago , but she was not sent to ER For assessment. They have found that patient has bruising to bilateral leg. PAtient is complaining of pain to back of her head and neck pain. She denies nausea or vomiting. They report patient appears weak and shaking. They are not aware of any gross blood loss anywhere. She does take plavix. Related Data Home Medications Medication Instructions Recorded Confirmed Ca 600 mg-D3 800 unit-magnes 40 1 tablet PO DAILY 07/04/19 09/06/22 bf-jcfy-nvm-paul-boron chewable tablet (Caltrate 600-D Plus Minerals) albuterol sulfate 90 mcg/actuation 2 puff inhalation QID 07/04/19 09/06/22 aerosol inhaler budesonide-formoterol HFA 80 2 puff inhalation BID 07/04/19 09/06/22 mcg-4.5 mcg/actuation aerosol inhaler (Symbicort) citalopram 40 mg tablet 40 mg PO HS 07/04/19 09/06/22 gabapentin 100 mg capsule 100 mg PO TID 07/04/19 09/06/22 hydrocodone 5 mg-acetaminophen 325 1 tablet PO DAILY PRN Pain 07/04/19 09/06/22 mg tablet ondansetron HCl 4 mg tablet 4 mg DAILY PRN Nausea 07/04/19 09/06/22 acetaminophen 500 mg tablet 500 mg PO Q8H PRN Pain (Scale 06/14/21 09/06/22 Score 1-3) amlodipine 5 mg tablet 5 mg PO DAILY 06/14/21 09/06/22 cetirizine 10 mg tablet (Zyrtec) 10 mg PO DAILY 06/14/21 09/06/22 furosemide 40 mg tablet 40 mg PO DAILY 06/14/21 09/06/22 naloxone 4 mg/actuation nasal spray 4 mg intranasal Q3M PRN Opioid 06/14/21 09/06/22 Overdose polyethylene glycol 3350 17 17 g PO DAILY 06/14/21 09/06/22 gram/dose oral powder (Miralax) Allergies Allergy/AdvReac Type Severity Reaction Status Date / Time mushroom AdvReac Unknown Verified 11/01/21 11:57 oyster extract AdvReac Unknown Verified 11/01/21 11:57 Review of Systems Review of Systems: ROS unobtainable: Yes unobtainable due to mental status PMFSH Past Medical History Medical History Chronic anemia Chronic kidney disease Chronic obstructive pulmonary disease Deep venous thrombosis Dementia Depression Gastroesophageal reflux disease Hyperlipidemia Hypertension Peptic ulcer disease Vitamin B12 deficiency Surgical History Surgical History History of inferior vena caval filter placement History of tubal ligation Family History Family History Mother Hypertension Sibling Hypertension Social History Social History Social History: She lives in assisted living at the [facility]. She is and has 4 daughters. Retired from a [employer]. She smoked about 0.75 packs of cigarettes a day for 60 years quit within the last couple of years. No alcohol or illicit drug abuse. Surrogate decision maker: Marci Charlton, daughter. Code status: Full code. Smoking status: Former smoker Alcohol intake: never Substance use: never Substance use type: does not use Lack of Transportation: No Lack of Food: Never True Current Housing: I Have Housing Concerned About Future Housing: No Difficulty Paying Gas/Electric Bills: No Difficulty Paying for Meds: No Cu
[2022-09-06 16:10] LABS: NT Pro B Type Natriuretic Pept 2670 pg/mL (19.9-100)
[2022-09-06] MEDS: SODIUM CHLORIDE 0.9% IV 250 ML 30 ML IV CONT (17:20)
[2022-09-06 17:41] LABS: Iron 24 ug/dL (37-170)
[2022-09-06 17:50] LABS: Percent Iron Saturation 5 % (20-50)
[2022-09-06 19:01] LABS: Folic Acid 16.1 ng/mL (2.76->20)
--- NOTE | 2022-09-06 21:10 | ADMGEN ---
This patient, Karime Magana, was admitted to IMU Room 231-01. Patient/family oriented to hospital policies and general routines including ID bracelet, bed and alarms, visiting hours, pain management, procedures, bathroom and other care routines, personal items, smoking policy, room service/diet, and visiting hours. Information on how to activate the Rapid Response Team has been discussed. Patient/Family are encouraged to report perceived risks to care and to ask questions if they do not understand what they are told or what they should do.
[2022-09-07] VITALS (19 sets, daily range): BP systolic 104–144; BP diastolic 42–72; PULSE 55–71; RESP 16–26; TEMP 36.1–37.1; O2SAT 93–100
--- NOTE | 2022-09-07 01:56 | PM.IMHP ---
H&P: HPI History of Present Illness Date/Time: 09/07/22 01:56 Chief Complaint: Shortness of breath Narrative: 87-year-old female with a past medical history of hypertension, diastolic heart failure, COPD, DVT, peptic ulcer disease and GERD who presented to the ER from [facility] due to multiple complaints. Initially patient had reported some left facial numbness to the skilled nursing staff but then was later found out that these are chronic complaints. She then started complaining of shortness of breath. The family was concerned about the patient missed the patient had fallen out of bed a couple of days ago and had extensive bruising to her legs. She was not sent to the ER after initial fall. She was also complaining of pain to the back of her head and neck pain. In the ER today she had imaging of her abdomen, pelvis, cervical spine head, lower extremity and knees. There is no evidence of acute traumatic fracture or injury on imaging. The patient had not been complaining of nausea or vomiting. The family felt that the patient had appeared weaker than usual and was shaking. She had not had any black stools that he by was aware of. In the ER hemoccult of stool was negative the patient's hemoglobin had dropped from a value of 10.9 in June last year down to 6 today. The patient does take Plavix. iron studies were obtained in the ER and 2 units of packed red blood cells were ordered. The patient reports that she does not have any black stools. Her Hemoccult in the ER was negative. The patient admits that she does not like T meat. She does not take iron supplements at home. Patient does not have a listed history of dementia. She could not recall what hospital she is at. She was able to name the town after several minutes of thought. She is otherwise oriented. However she does not seem to be much of a historian. She could not recall why she was brought to the hospital. She could not recall that she had been short of breath despite the fact that she had a nasal cannula in place. Although she does wear 2 L of oxygen at all times due to history of COPD. Review of Systems Review of Systems: 12 systems were reviewed with pertinent positives and negatives per HPI. Except as documented in the HPI, all other systems were reviewed and are negative. However, reliability of review of systems is in question as patient seems to be having difficulty recalling recent events. [facility] Past Medical History Medical History (Updated 09/07/22 @ 08:10 by Ruthann Rosenberg DO) Chronic anemia Chronic diastolic heart failure Chronic kidney disease Chronic obstructive pulmonary disease Chronic respiratory failure with hypoxia, on home O2 therapy Deep venous thrombosis Dementia Depression Gastroesophageal reflux disease Hyperlipidemia Hypertension Peptic ulcer disease Vitamin B12 deficiency Surgical History Surgical History History of inferior vena caval filter placement History of tubal ligation Family History Family History Mother Hypertension Sibling Hypertension Social History Social History (Updated 09/07/22 @ 08:07 by Ruthann Rosenberg DO) Social History: She lives in assisted living at the [facility]. She is and has 4 daughters. Retired from a [employer]. She smoked about 0.75 packs of cigarettes a day for 60 years quit within the last couple of years. No alcohol or illicit drug abuse. Surrogate decision maker: Marci Charlton, daughter. Code status: Full code. Smoking status: Former smoker Alcohol intake: never Substance use: never Substance use type: does not use Lack of Transportation: No Lack of Food: Never True Current Housing: I Have Housing Concerned About Future Housing: No Difficulty Paying Gas/Electric Bills: No Difficulty Paying for Meds: No Curre
[2022-09-07 04:49] LABS: Basophils Absolute Auto 0.1 K/mm3 (0.0-0.1); Basophils Percent Auto 1.7 % (0.2-1.2); Eosinophils Absolute Auto 0.1 K/mm3 (0-0.3); Eosinophils Percent Auto 1.8 % (0-4.4); Hematocrit 30.4 % (37.0-47.0); Hemoglobin 8.8 g/dL (12.0-15.0); Immature Granulocyte Absolute 0.02 K/mm3 (0.00-0.031); Immature Granulocyte Percent A 0.3 % (0-0.5); Lymphocytes Percent Auto 16.8 % (18.3-44.2); Mean Corpuscular HGB Conc 28.9 g/dl (32-36); Mean Corpuscular Hemoglobin 24.5 pg (26-34); Mean Corpuscular Volume 84.7 fl (80-100); Mean Platelet Volume 9.8 fl (7.4-10.4); Monocytes Absolute Auto 0.5 K/mm3 (0.1-0.6); Monocytes Percent Auto 8.4 % (2.6-8.5); Neutrophils Absolute Auto 4.2 K/mm3 (1.3-6.7); Nucleated Red Blood Cells Perc 0.3 % (0.0-0.2); Platelet Count Result 244 k/mm3 (150-375); Red Blood Count 3.59 M/mm3 (4.2-5.4); Red Cell Distribution Width 16.2 % (11.5-14.5)
[2022-09-07 05:05] LABS: Alanine Aminotransferase 16 U/L (6-35); Albumin Level 4.1 g/dL (3.5-5.1); Alkaline Phosphatase 45 U/L (38-126); Anion Gap 7 mmol/L (8-16); Aspartate Amino Transferase 20 U/L (14-36); Bilirubin,Total 0.6 mg/dL (0.2-1.3); Blood Urea Nitrogen 17 mg/dL (7-17); Calcium 8.5 mg/dL (8.4-10.2); Carbon Dioxide 25 mmol/L (22-30); Chloride 106 mmol/L (98-107); Estimated Glomerular Filt Rate 47; Glucose 92 mg/dL (65-110); Potassium 3.6 mmol/L (3.4-5.0); Sodium 138 mmol/L (137-145)
[2022-09-07] MEDS: FLUTICASONE/SALMETEROL 45-21 MCG INHALER 1 PUFF 2 PUFF INHALATION ×2 (08:43→20:22)
[2022-09-07] MEDS: ALBUTEROL SULFATE (*SP) AEROSOL 1 PUFF 2 PUFF INHALATION ×3 (08:43→20:22)
[2022-09-07] MEDS: METOPROLOL SUCCINATE EXT REL 50 MG TABCR PO (10:13)
[2022-09-07] MEDS: amLODIPine BESYLATE 5 MG TABLET PO (10:13)
[2022-09-07] MEDS: THERAPEUTIC MULTIVITAMINS/MINERALS TAB (*BKC) 1 TABLET PO (10:13)
[2022-09-07] MEDS: GABAPENTIN 100 MG CAPSULE PO ×3 (10:15→18:01)
[2022-09-07] MEDS: FUROSEMIDE 40 MG TABLET PO (10:15)
[2022-09-07] MEDS: PANTOPRAZOLE 40 MG TABLET PO ×2 (10:15→20:59)
[2022-09-07] MEDS: polyethylene glycoL 3350 17 GM POWD.PACK PO (10:16)
--- NOTE | 2022-09-07 15:39 | PM.IMPN ---
Progress Note: A&P Assessment and Plan (1) Symptomatic anemia: Code(s): D64.9 - Anemia, unspecified Status: Acute Assessment and Plan: Watch hb see below. (2) Contusion of leg: Qualifiers: Encounter type: subsequent encounter Laterality: unspecified laterality Qualified Code(s): S80.10XD - Contusion of unspecified lower leg, subsequent encounter Code(s): S80.10XA - Contusion of unspecified lower leg, initial encounter Status: Acute Assessment and Plan: Consult Dr Sommers regarding stopping OAC warm compresses on knees Plan The patient has symptomatic anemia. She does have a distant history of peptic ulcer disease with symptomatic anemia in 2019. However her Hemoccult stools were negative in the ER. The patient has no acute evidence of active GI blood loss. Gastroenterology has been consulted. The patient is already on Protonix p.o. b.i.d.. Patient was transfused 2 units packed red blood cells. Will repeat CBC in a.m.. Subjective Date/time seen: 09/07/22 15:39 Interval history: Pt here for leg contusion after simple fall pt is on OAC for DVT been on it for 1 year. Pt having frequent falls and large bruising after this on her R arm now L leg Pt daughter in the room long discussion about OAC pt would like to talk to hematology before stopping Review of Systems Review of Systems: Mild knee pains severe bruising of knees Exam Narrative: Weight 70.7 kg BMI 31.5 Const: Other: No acute distress, obese, appears stated age HENMT: Other: Mucous membranes are tacky, no oral pharyngeal erythema, edentulous Eyes: Other: Pupils are equal and reactive, no scleral icterus, positive conjunctival pallor Neck: Other: No JVD, large neck circumference Resp: Other: Clear to auscultation bilaterally, no increased work of breathing Cardio: Other: Regular rate, regular rhythm, 2+ bilateral radial pedal pulses GI: Other: Soft, nontender, nondistended, positive bowel sounds Skin: Other: Bruising to the legs, generalized pallor, no jaundice Neuro: Other: Alert and oriented x3, speech is clear but slow, follow simple commands, chronic facial asymmetry, she is aware that she is in [place] but could not name the name of the hospital. Difficulty recalling the events that brought her to the hospital. Extrem: Other: No clubbing, cyanosis or edema, bruising to legs Psych: Other: Appropriate mood and affect, pleasant and cooperative Objective Data Vital Signs Vital Signs: Vital Signs - 24 hr 09/06/22 17:17 09/06/22 15:45 09/06/22 15:47 Temperature 36.4 C Pulse Rate 56 L 68 68 Respiratory Rate 16 17 15 Blood Pressure 97/76 L 118/66 Pulse Oximetry 100 95 92 Oxygen Delivery Oxygen Flow Rate Fraction of Inspired Oxygen 09/06/22 16:00 09/06/22 16:17 09/06/22 16:18 Temperature Pulse Rate 69 68 68 Respiratory Rate 19 17 17 Blood Pressure 124/60 Pulse Oximetry 98 95 97 Oxygen Delivery Oxygen Flow Rate Fraction of Inspired Oxygen 09/06/22 16:40 09/06/22 17:33 09/06/22 18:33 Temperature 36.6 C 36.4 C Pulse Rate 62 61 58 L Respiratory Rate 17 16 16 Blood Pressure 102/39 L 94/66 L Pulse Oximetry 100 98 Oxygen Delivery Oxygen Flow Rate Fraction of Inspired Oxygen 09/06/22 19:23 09/06/22 20:00 09/06/22 21:41 Temperature 36.6 C 36.6 C Pulse Rate 59 L 56 L 62 Respiratory Rate 16 16 20 Blood Pressure 101/59 L 102/52 L 117/55 L Pulse Oximetry 98 95 99 Oxygen Delivery Oxygen Flow Rate Fraction of Inspired Oxygen 09/06/22 21:58 09/06/22 21:30 09/06/22 21:30 Temperature 36.1 C L Pulse Rate 64 68 68 Respiratory Rate 20 20 Blood Pressure 117/52 L Pulse Oximetry 100 100 Oxygen Delivery Nasal Cannula Oxygen Flow Rate 2 Fraction of Inspired Oxygen 09/06/22 22:00 09/06/22 22:58 09/06/22 23:58 Temper
--- NOTE | 2022-09-07 16:22 | PCPTNOTE ---
On 09/07/22, the student, [Roma Theodore], provided care and completed [facility] documentation on this patient. I have reviewed the student's documentation and agree with the findings.
[2022-09-07] MEDS: FERROUS SULFATE 324 MG TABLET PO (18:01)
[2022-09-07] MEDS: CITALOPRAM HYDROBROMIDE 20 MG TABLET 40 MG PO (20:58)
[2022-09-07] MEDS: HYDROcodone/acetaminophen (*CRX) 5-325 MG TABLET 1 TAB PO (20:59)
[2022-09-08] VITALS (16 sets, daily range): BP systolic 102–133; BP diastolic 40–57; PULSE 60–69; RESP 18–24; TEMP 36–36.8; O2SAT 91–98
[2022-09-08 04:57] LABS: Hematocrit 27.8 % (37.0-47.0); Hemoglobin 8.1 g/dL (12.0-15.0); Mean Corpuscular HGB Conc 29.1 g/dl (32-36); Mean Corpuscular Hemoglobin 24.5 pg (26-34); Mean Corpuscular Volume 84.2 fl (80-100); Mean Platelet Volume 9.6 fl (7.4-10.4); Platelet Count Result 232 k/mm3 (150-375); Red Cell Distribution Width 16.8 % (11.5-14.5); White Blood Count 6.2 K/mm3 (4.5-10.0)
[2022-09-08 05:15] LABS: Anion Gap 2 mmol/L (8-16); Blood Urea Nitrogen 17 mg/dL (7-17); Calcium 8.4 mg/dL (8.4-10.2); Carbon Dioxide 31 mmol/L (22-30); Chloride 107 mmol/L (98-107); Estimated Glomerular Filt Rate 42; Glucose 104 mg/dL (65-110); Potassium 3.8 mmol/L (3.4-5.0); Sodium 140 mmol/L (137-145)
[2022-09-08] MEDS: FLUTICASONE/SALMETEROL 45-21 MCG INHALER 1 PUFF 2 PUFF INHALATION ×2 (08:19→21:05)
[2022-09-08] MEDS: ALBUTEROL SULFATE (*SP) AEROSOL 1 PUFF 2 PUFF INHALATION ×3 (08:19→21:05)
[2022-09-08] MEDS: LIDOCAINE 5% PATCH 1 PATCH TRANSDERM (08:44)
[2022-09-08] MEDS: FERROUS SULFATE 324 MG TABLET PO ×2 (08:45→17:42)
[2022-09-08] MEDS: PANTOPRAZOLE 40 MG TABLET PO ×2 (08:45→20:19)
[2022-09-08] MEDS: METOPROLOL SUCCINATE EXT REL 50 MG TABCR PO (08:45)
[2022-09-08] MEDS: GABAPENTIN 100 MG CAPSULE PO ×3 (08:46→17:42)
[2022-09-08] MEDS: THERAPEUTIC MULTIVITAMINS/MINERALS TAB (*BKC) 1 TABLET PO (08:46)
[2022-09-08] MEDS: amLODIPine BESYLATE 5 MG TABLET PO (08:46)
[2022-09-08] MEDS: FUROSEMIDE 40 MG TABLET PO (08:46)
--- NOTE | 2022-09-08 09:35 | PCPTNOTE ---
STEVEDORE DOCK attempted visit at 9:30 however pt was too fatigued to move in bed. Daughter in room feels pt is going down hill . Spoke to nursing, nurse stated she would talk to to daughter.
[2022-09-08] MEDS: ALPRAZolam (*CRX) 0.5 MG TABLET PO (10:16)
--- NOTE | 2022-09-08 12:14 | WPDNEURCNPN ---
Assessment and Plan Assessment and plan (1) Altered mental status: Code(s): R41.82 - Altered mental status, unspecified Status: Acute (2) Symptomatic anemia: Code(s): D64.9 - Anemia, unspecified Status: Acute Plan Ms. Magana is an 87 year old female with several chronic medical conditions presenting due to altered mental status, falls, in the setting of anemia. MRI brain was negative for acute stroke. It is unclear what patient's baseline mental status is -- seems like there may be a component of dementia. B12 and folate are normal, but probably worth rechecking TSH since the last one was elevated. Episode of shaking does not seem to be an epileptic seizure based on description -- she has tremulousness of the extremities when resistance was applied during exam. - Check TSH Consult date: 09/08/22 Time Seen: 12:14 Reason for consult: Rule out stroke HPI: Karime Magana is a 87 year old female with a history of CHF, CKD, COPD, DVT, dementia, depression, HLD, HTN, B12 deficiency currently admitted to falls. Patient was brought in from [facility] after she had fallen out of bed and developed extensive bruising. During the admission there was concern for R eyelid drooping, and an episode of full body twitching/tremulousness. Family also reported that she was not acting like herself and was more fatigued. CT head was done during the admission that was negative for stroke. MRI brain has been done that is negative for acute stroke as well. Patient's Hgb was notably low at 6, for which she was treated with transfusion. B12 and folate levels are within normal range during this admission. TSH has not been checked recently, but was elevated when checked in 2021. She received Xanax for the episode of tremulousness so has been somewhat drowsy. Review of Systems Review of Systems: ROS unobtainable: Yes unobtainable due to mental status PMFSH Past Medical History Medical History Chronic anemia Chronic diastolic heart failure Chronic kidney disease Chronic obstructive pulmonary disease Chronic respiratory failure with hypoxia, on home O2 therapy Deep venous thrombosis Dementia Depression Gastroesophageal reflux disease Hyperlipidemia Hypertension Peptic ulcer disease Vitamin B12 deficiency Surgical History Surgical History History of inferior vena caval filter placement History of tubal ligation Family History Family History Mother Hypertension Sibling Hypertension Social History Social History Social History: She lives in assisted living at the [facility]. She is and has 4 daughters. Retired from a [employer] company. She smoked about 0.75 packs of cigarettes a day for 60 years quit within the last couple of years. No alcohol or illicit drug abuse. Surrogate decision maker: Marci Charlton, alexia. Code status: Full code. Smoking status: Former smoker Alcohol intake: never Substance use: never Substance use type: does not use Lack of Transportation: No Lack of Food: Never True Current Housing: I Have Housing Concerned About Future Housing: No Difficulty Paying Gas/Electric Bills: No Difficulty Paying for Meds: No Currently Unemployed: No Education: Decline to Answer Difficulty w/ Childcare or Family Care: No Living arrangements: alone Spiritual care concerns: No Agree to blood products: Yes Meds Home Medications and Allergies Home Medications Medication Instructions Recorded Confirmed Type Ca 600 mg-D3 800 unit-magnes 40 1 tablet PO DAILY 07/04/19 09/06/22 History [id number] chewable tablet (Caltrate 600-D Plus Minerals) albuterol sulfate 90 mcg/actuation 2 puff inhalation QID 07/04/19 09/06/22
[2022-09-08 13:55] LABS: Free T4 Free Thyroxine Reflex 1.18 ng/dL (0.78-2.19)
--- NOTE | 2022-09-08 14:08 | PM.IMPN ---
Progress Note: A&P Assessment and Plan (1) Altered mental status: Code(s): R41.82 - Altered mental status, unspecified Status: Acute Assessment and Plan: STAT mri brain ordered STAT neurology consult MRI negative possibly anxiety related or seizure related follow neurology recommendations (2) Symptomatic anemia: Code(s): D64.9 - Anemia, unspecified Status: Acute Assessment and Plan: Watch hb see below. (3) Contusion of leg: Qualifiers: Encounter type: subsequent encounter Laterality: unspecified laterality Qualified Code(s): S80.10XD - Contusion of unspecified lower leg, subsequent encounter Code(s): S80.10XA - Contusion of unspecified lower leg, initial encounter Status: Acute Assessment and Plan: Consult Dr Sommers regarding stopping OAC warm compresses on knees OAC on hold presently Plan The patient has symptomatic anemia. She does have a distant history of peptic ulcer disease with symptomatic anemia in 2019. However her Hemoccult stools were negative in the ER. The patient has no acute evidence of active GI blood loss. Gastroenterology has been consulted. The patient is already on Protonix p.o. b.i.d.. Patient was transfused 2 units packed red blood cells. Will repeat CBC in a.m.. Subjective Date/time seen: 09/08/22 14:08 Interval history: Pt here for leg contusion after simple fall pt is on OAC for DVT been on it for 1 year. Pt having frequent falls and large bruising after this on her R arm now L leg Pt daughter in the room long discussion about OAC pt would like to talk to hematology before stopping Today pt having shaking altered state talking less asymmetrical pupils stat MRI brain ordered MRI brain is negative neurology rounding see recommendations Pt has history of dementia and multiple falls in OR Review of Systems Review of Systems: Mild knee pains severe bruising of knees Altered state confused shaking Exam Narrative: Weight 70.7 kg BMI 31.5 Const: Other: No acute distress, obese, appears stated age HENMT: Other: Mucous membranes are tacky, no oral pharyngeal erythema, edentulous Eyes: Other: Pupils are equal and reactive, no scleral icterus, positive conjunctival pallor Neck: Other: No JVD, large neck circumference Resp: Other: Clear to auscultation bilaterally, no increased work of breathing Cardio: Other: Regular rate, regular rhythm, 2+ bilateral radial pedal pulses GI: Other: Soft, nontender, nondistended, positive bowel sounds Skin: Other: Bruising to the legs, generalized pallor, no jaundice Neuro: Other: Alert and oriented x3, speech is clear but slow, follow simple commands, chronic facial asymmetry, she is aware that she is in [place] but could not name the name of the hospital. Difficulty recalling the events that brought her to the hospital. Extrem: Other: No clubbing, cyanosis or edema, bruising to legs Psych: Other: confused today shaking anxious appearing Objective Data Vital Signs Vital Signs: Vital Signs - 24 hr 09/07/22 15:28 09/07/22 16:00 09/07/22 16:00 Temperature Pulse Rate 66 Respiratory Rate Blood Pressure Pulse Oximetry 93 Pulse Oximetry [At Rest After Therapy Session] 93 Oxygen Delivery Nasal Cannula Nasal Cannula Oxygen Flow Rate 2 2 Fraction of Inspired Oxygen 09/07/22 16:00 09/07/22 18:00 09/07/22 20:27 Temperature 36.1 C L Pulse Rate 62 67 56 L Respiratory Rate 20 18 Blood Pressure 114/70 Pulse Oximetry 95 Pulse Oximetry [At Rest After Therapy Session] Oxygen Delivery Oxygen Flow Rate Fraction of Inspired Oxygen 09/07/22 20:28 09/07/22 20:00 09/07/22 20:00 Temperature 36.2 C L Pulse Rate 57 L 55 L 59 L Respiratory Rate 18 20 Blood Pressure 113/49 L Pulse Oximetry 94 93 Pulse Oximetry [At Rest After The
--- NOTE | 2022-09-08 14:57 | PCOTNOTE ---
Attempted to see pt for OT evaluation however T11 compression fx noted on imaging. Unclear if this is a new finding. Pt's daughter states the patient had a burst fx in June 2019 that was not treated. RN to contact hospitalist to follow up.
--- NOTE | 2022-09-08 17:17 | WPDNEUROSGCN ---
Assessment and Plan Assessment and plan (1) Thoracic compression fracture: Code(s): S22.000A - Wedge compression fracture of unspecified thoracic vertebra, initial encounter for closed fracture Status: Acute Plan Ms. Forrest is an 87-year-old female with multiple medical comorbidities who was admitted with AMS and anemia requiring blood transfusion. She has a long history of chronic back pain and has a known T11 compression fracture, although she denies any exacerbation of her usual pain since being in the hospital. She has good strength and sensation in her legs. CT abdomen shows a T11 compression fracture which is stable compared to imaging from 2020. She does not have any significant stenosis at this level. She and her daughter state that her back pain has not been a significant issue for her since admission and that she instead just feels deconditioned. I would recommend physical therapy both in the hospital and on discharge to help with her pain and deconditioning. If it becomes an issue while in the hospital, I would recommend adding a muscle relaxer. Plan: -Recommend physical therapy evaluation -Consider adding a muscle relaxer if her back pain is uncontrolled with current medications -Recommend outpatient Pain Management evaluation if her pain is still significant after discharge Consult date: 09/08/22 HPI: Karime Magana is a 87 year old female with history of hypertension, heart failure, COPD, DVT, GERD presented to the hospital 2 days ago from her living facility with complaints shortness of breath, recent fall, neck pain, and altered mental status. During this admission, she had a CT chest showing a chronic T11 compression fracture for which Neurosurgery was consulted. She has also been quite anemic with hemoglobin level down to 6 requiring blood transfusion. Today, there is a concern for stroke for which a an MRI brain was obtained which was negative. The patient states she has a long history of back pain in the lower back which radiates upward. She occasionally has pain into her legs. She denies numbness or bowel/bladder changes. She is able to walk short distances with a walker which she has used for many years. She has had physical therapy in the past many years ago as well as possibly an [facility]. She does not think that her pain has been worse than usual while in the hospital; in fact, she states she has not had much back pain since admission. Review of Systems Review of Systems: All systems reviewed & are unremarkable except as noted in HPI and below PMFSH Past Medical History Medical History Chronic anemia Chronic diastolic heart failure Chronic kidney disease Chronic obstructive pulmonary disease Chronic respiratory failure with hypoxia, on home O2 therapy Deep venous thrombosis Dementia Depression Gastroesophageal reflux disease Hyperlipidemia Hypertension Peptic ulcer disease Vitamin B12 deficiency Surgical History Surgical History History of inferior vena caval filter placement History of tubal ligation Family History Family History Mother Hypertension Sibling Hypertension Social History Social History Social History: She lives in assisted living at the [facility]. She is and has 4 daughters. Retired from a [employer]. She smoked about 0.75 packs of cigarettes a day for 60 years quit within the last couple of years. No alcohol or illicit drug abuse. Surrogate decision maker: Marci Charlton, daughter. Code status: Full code. Smoking status: Former smoker Alcohol intake: never Substance use: never Substance use type: does not use Lack of Transportation: No Lack of Food: Never True Current Housing: I Have Housing Concerned About Future
[2022-09-08 17:39] LABS: Total Triiodothyronine (T3) 1.02 NG/ML (0.97-1.69)
[2022-09-08] MEDS: CITALOPRAM HYDROBROMIDE 20 MG TABLET 40 MG PO (20:19)
[2022-09-09] VITALS (15 sets, daily range): BP systolic 95–115; BP diastolic 39–78; PULSE 55–73; RESP 18–24; TEMP 36–36.6; O2SAT 92–100
[2022-09-09 05:37] LABS: Hematocrit 29.7 % (37.0-47.0); Hemoglobin 8.5 g/dL (12.0-15.0); Mean Corpuscular HGB Conc 28.6 g/dl (32-36); Mean Corpuscular Hemoglobin 24.5 pg (26-34); Mean Corpuscular Volume 85.6 fl (80-100); Mean Platelet Volume 9.7 fl (7.4-10.4); Platelet Count Result 236 k/mm3 (150-375); Red Blood Count 3.47 M/mm3 (4.2-5.4); Red Cell Distribution Width 17.4 % (11.5-14.5); White Blood Count 6.9 K/mm3 (4.5-10.0)
[2022-09-09 05:46] LABS: Anion Gap 3 mmol/L (8-16); Blood Urea Nitrogen 17 mg/dL (7-17); Calcium 8.3 mg/dL (8.4-10.2); Carbon Dioxide 32 mmol/L (22-30); Chloride 103 mmol/L (98-107); Estimated Glomerular Filt Rate 42; Glucose 97 mg/dL (65-110); Potassium 4.2 mmol/L (3.4-5.0); Sodium 138 mmol/L (137-145)
[2022-09-09] MEDS: polyethylene glycoL 3350 17 GM POWD.PACK PO (08:54)
[2022-09-09] MEDS: PANTOPRAZOLE 40 MG TABLET PO ×2 (08:54→21:33)
[2022-09-09] MEDS: METOPROLOL SUCCINATE EXT REL 50 MG TABCR PO (08:54)
[2022-09-09] MEDS: FERROUS SULFATE 324 MG TABLET PO ×2 (08:55→17:56)
[2022-09-09] MEDS: GABAPENTIN 100 MG CAPSULE PO ×3 (08:55→17:57)
[2022-09-09] MEDS: amLODIPine BESYLATE 5 MG TABLET PO (08:55)
[2022-09-09] MEDS: FUROSEMIDE 40 MG TABLET PO (08:55)
[2022-09-09] MEDS: THERAPEUTIC MULTIVITAMINS/MINERALS TAB (*BKC) 1 TABLET PO (08:55)
[2022-09-09] MEDS: LIDOCAINE 5% PATCH 1 PATCH TRANSDERM (09:02)
--- NOTE | 2022-09-09 11:32 | PM.IMPN ---
Progress Note: A&P Assessment and Plan (1) Altered mental status: Code(s): R41.82 - Altered mental status, unspecified Status: Acute Assessment and Plan: MRI brain with moderate chronic microvascular ischemic change with no acute abnormality. Neurology consulted (2) Symptomatic anemia: Code(s): D64.9 - Anemia, unspecified Status: Acute Assessment and Plan: Watch hb see below. (3) Contusion of leg: Qualifiers: Encounter type: subsequent encounter Laterality: unspecified laterality Qualified Code(s): S80.10XD - Contusion of unspecified lower leg, subsequent encounter Code(s): S80.10XA - Contusion of unspecified lower leg, initial encounter Status: Acute Assessment and Plan: Consult Dr Sommers regarding stopping OAC warm compresses on knees OAC on hold presently Plan 87-year-old history of hypertension diastolic heart failure COPD DVT peptic ulcer disease and GERD presented after fall and multiple extensive bruising to the legs. No evidence of acute traumatic fracture on imaging reported generalized weakness hemoccult negative but noted to be anemic on presentation. On anticoagulation for DVT history of COPD on 2 L oxygen. Pt daughter in the room long discussion about OAC pt would like to talk to hematology before stopping History of dementia and multiple falls and long-term Chest x-ray hazy retrocardiac airspace disease stable right apical nodule stable ED over time. Suggest benign in ED. 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 On Protonix GI consulted. Remote history of peptic ulcer disease with GI bleed in 2020. GI will be consulted. Hematology has also been consulted. Shaking episode/episode of right eyelid drooping unclear etiology History of DVT 2019 1 of 2 peroneal veins with indeterminate V/Q scan. Patient is also status post IVC filter placement in 2019 History of CHF COPD CKD stage III Hypertension Hyperlipidemia B12 deficiency T11 compression fracture which is chronic neurosurgery evaluated Subjective Date/time seen: 09/09/22 11:32 Interval history: 87-year-old history of hypertension diastolic heart failure COPD DVT peptic ulcer disease and GERD presented after fall and multiple extensive bruising to the legs. No evidence of acute traumatic fracture on imaging reported generalized weakness hemoccult negative but noted to be anemic on presentation. On anticoagulation for DVT history of COPD on 2 L oxygen. Pt daughter in the room long discussion about OAC pt would like to talk to hematology before stopping History of dementia and multiple falls and long-term Chest x-ray hazy retrocardiac airspace disease stable right apical nodule stable ED over time. Suggest benign in ED. Severe compression fracture of T10-[address] no acute abnormality Cervical CT no acute fracture or traumatic malalignment likely left Cholesteatoma Knee x-ray moderate to severe medial compartment osteoarthritis of left knee Tibia-fibula with no acute fracture Abdominal CT nonsignificant Right knee x-ray with no acute osseous abnormality Review of Systems Review of Systems: All systems reviewed & are unremarkable except as noted in HPI and below Exam Narrative: GENERAL: The patient is well developed, not in acute distress HEENT: Nonicteric sclerae, PERRLA, EOMI. Oropharynx clear. Moist mucous membranes. Conjunctivae appear well perfused. CHEST: Chest wall is nontender. HEART: Regular rate and rhythm without murmur, rubs, or gallops LUNGS: Diminished breath sounds bilaterally. no respiratory distress ABDOME
[2022-09-09] MEDS: ALBUTEROL SULFATE (*SP) AEROSOL 1 PUFF 2 PUFF INHALATION ×2 (13:53→20:30)
--- NOTE | 2022-09-09 14:42 | WPDGICN ---
Assessment and Plan Assessment and plan (1) Acute on chronic anemia: Code(s): D64.9 - Anemia, unspecified Status: Acute Assessment and Plan: stable after transfusion hemoccult negative will do EGD on Monday since she has known history of large duodenal ulcer iv protonix for now (2) Altered mental status: Code(s): R41.82 - Altered mental status, unspecified Status: Acute Assessment and Plan: on admission, improved (3) Contusion of leg: Qualifiers: Encounter type: subsequent encounter Laterality: unspecified laterality Qualified Code(s): S80.10XD - Contusion of unspecified lower leg, subsequent encounter Code(s): S80.10XA - Contusion of unspecified lower leg, initial encounter Status: Acute Assessment and Plan: h/o falls (4) Stage 3b chronic kidney disease (CKD): Code(s): N18.32 - Chronic kidney disease, stage 3b Status: Acute (5) Burst fracture of thoracic vertebra: Qualifiers: Encounter type: subsequent encounter Fracture healing: with routine healing Fracture type: closed Qualified Code(s): S22.001D - Stable burst fracture of unspecified thoracic vertebra, subsequent encounter for fracture with routine healing Code(s): S22.001A - Stable burst fracture of unspecified thoracic vertebra, initial encounter for closed fracture Status: Acute Assessment and Plan: evaluated by neurosurgery no new recommendations (6) COPD (chronic obstructive pulmonary disease): Code(s): J44.9 - Chronic obstructive pulmonary disease, unspecified Status: Chronic (7) History of duodenal ulcer: Code(s): Z87.19 - Personal history of other diseases of the digestive system Status: Acute Assessment and Plan: egd monday GI Consult Note Consult date/time: 09/09/22 14:42 Reason for consult: acute on chronic anemia HPI: Karime Magana is a 87 year old female with history of hypertension, diastolic heart failure, COPD, DVT s/p IVC filter, large duodenal ulcer and large hiatal hernia in 2019 (EGD reviewed) on ppi who presented after fall and multiple extensive bruising to the legs few days ago.?No evidence of acute traumatic fracture on imaging, ER evaluation noted brown stool with hemoccult negative, ghb 6.5 and given transfusion, mid 8's since. Review of Systems Constitutional: Constitutional: Reports lethargy Eyes: Eyes: Reports no additional eye complaints ENT: Reports Normal hearing present Cardiovascular: Cardiovascular: Denies chest pain Respiratory: Respiratory: Denies cough Gastrointestinal: Gastrointestinal: Denies melena Musculoskeletal: Musculoskeletal: Reports arthralgias Integumentary/Breasts: Skin/Breast: Denies rash Neurologic: Denies Abnormal speech present Psychiatric: Psychiatric: Denies anxiety [facility] Past Medical History Medical History (Updated 09/09/22 @ 14:46 by Rafat Balderas MD) Acute on chronic anemia Chronic anemia Chronic diastolic heart failure Chronic kidney disease Chronic obstructive pulmonary disease Chronic respiratory failure with hypoxia, on home O2 therapy Deep venous thrombosis Dementia Depression Gastroesophageal reflux disease Hyperlipidemia Hypertension Peptic ulcer disease Vitamin B12 deficiency Surgical History Surgical History History of inferior vena caval filter placement History of tubal ligation Family History Family History Mother Hypertension Sibling Hypertension Social History Social History Social History: She lives in assisted living at the [facility]. She is and has 4 daughters. Retired from a [employer] company. She smoked about 0.75 packs of cigarettes a day for 60 years quit within the last couple of years. No alcohol or illic
--- NOTE | 2022-09-09 17:53 | PDONCCN ---
HPI - Date of Consult Date/Time: 09/09/22 17:53 Requesting Physician: Joaquin Inman MD Primary Care Provider: Gurvinder ThompsonMD - Consult Narrative Reason for consult: Normocytic anemia Narrative: Karime Magana is a 87 year old female who is [facility] resident with history of COPD and left lower extremity DVT, peptic ulcer disease and diastolic heart failure brought into the hospital status post fall. Patient was also complaining of generalized tiredness and fatigue and shortness of breath. CT scan of abdomen and pelvis was performed showed no evidence of colorectal mass or lymphadenopathy. Labs showed hemoglobin of 6.0. She received 2 units of packed red blood cell. She had not received any blood transfusion in the past. Denies any previous history of bone marrow disorders. Other labs showed creatinine of 1.2 with GFR of 42%, iron 24 with iron saturation of 5%. ProBNP was elevated at 26 70. Vitamin B12 was 427. She is feeling better after the blood transfusion. Brain MRI was also performed due to mental status changes and came back unremarkable. Review of Systems - Review of Systems All systems reviewed & are unremarkable except as noted in HPI and bel - Neurologic Reports hearing normal, Denies abnormal speech PMFSH Medical History: Medical History (Last Updated 09/09/22 @ 14:46 by Rafat Balderas MD) Acute on chronic anemia Chronic anemia Chronic diastolic heart failure Chronic kidney disease Chronic obstructive pulmonary disease Chronic respiratory failure with hypoxia, on home O2 therapy Deep venous thrombosis Dementia Depression Gastroesophageal reflux disease Hyperlipidemia Hypertension Peptic ulcer disease Vitamin B12 deficiency Surgical History: Surgical History (Last Reviewed 09/08/22 @ 12:18 by Angélica Dyer MD) History of inferior vena caval filter placement History of tubal ligation Family History: Family History (Last Reviewed 09/08/22 @ 12:18 by Angélica Dyer MD) Mother Hypertension Sibling Hypertension - Social History Social History: Social History (Last Reviewed 09/08/22 @ 12:18 by Angélica Dyer MD) Alcohol Use: Alcohol intake: never Substance Use: Substance use: never Substance use type: does not use Others: Spiritual care concerns: No Agree to blood products: Yes Living Arrangements: Living arrangements: alone Smoking Status: Smoking status: Former smoker Approximate Smoking End Date: stopped smoking 7 years ago Social Determinants of Health: Has the Lack of Transportation Kept You From Medical Appointments or From Getting Medications?: No Within the Past 12 Months, Were You Worried Whether Your Food Would Run Out Before You Got Money to Buy More?: Never True What is Your Housing Situation Today?: I Have Housing Are You Worried That in the Next 2 Months, You May Not Have Your Own Housing to Live In?: No Do You Have Trouble Paying Your Heating Or Electricity Bill?: No Do You Have Trouble Paying For Medicines?: No Are You Currently Unemployed and Looking for Work?: No Highest Level of Education Completed: Decline to Answer Do You Have Trouble With Childcare or the Care of a Family Member?: No Exam - Vital Signs Vital Signs - 24 hr 09/08/22 18:00 09/08/22 20:00 09/08/22 20:00 Temperature 36.8 C Pulse Rate 60 64 Respiratory Rate 20 Blood Pressure 102/46 L Pulse Oximetry 92 92 Oxygen Delivery Nasal Cannula Oxygen Flow Rate 2 Fraction of Inspired Oxygen 09/08/22 21:07 09/08/22 21:08 09/08/22 20:00 Temperature Pulse Rate 69 69 62 Respiratory Rate 20 20 Blood Pressure Pulse Oximetry 93 Oxygen Delivery Nasal Cannula Oxygen Flow Rate 2 Fraction of Inspired Oxygen 28 09/08/22 23:39 09/09/22 00:00 09/09/22 00:00 Temperature 36.3 C L Pulse Rate 70 71 Respiratory Rate 22 H
[2022-09-09] MEDS: FLUTICASONE/SALMETEROL 45-21 MCG INHALER 1 PUFF 2 PUFF INHALATION (20:30)
[2022-09-09] MEDS: IRON SUCROSE COMPLEX 500 MG in SODIUM CHLORIDE 0.9% IV 250 ML 78.57 MG IVPB (21:31)
[2022-09-09] MEDS: CITALOPRAM HYDROBROMIDE 20 MG TABLET 40 MG PO (21:33)
[2022-09-09] MEDS: HYDROcodone/acetaminophen (*CRX) 5-325 MG TABLET 1 TAB PO (22:26)
[2022-09-10] VITALS (22 sets, daily range): BP systolic 99–126; BP diastolic 42–75; PULSE 70–94; RESP 18–28; TEMP 36.4–38.7; O2SAT 89–96
[2022-09-10 04:35] LABS: Basophils Absolute Auto 0.1 K/mm3 (0.0-0.1); Basophils Percent Auto 0.8 % (0.2-1.2); Eosinophils Absolute Auto 0.1 K/mm3 (0-0.3); Eosinophils Percent Auto 1.2 % (0-4.4); Hematocrit 30.4 % (37.0-47.0); Hemoglobin 8.8 g/dL (12.0-15.0); Immature Granulocyte Absolute 0.03 K/mm3 (0.00-0.031); Immature Granulocyte Percent A 0.4 % (0-0.5); Lymphocytes Absolute Auto 0.37 K/mm3 (0.9-3.2); Lymphocytes Percent Auto 4.8 % (18.3-44.2); Mean Corpuscular HGB Conc 28.9 g/dl (32-36); Mean Corpuscular Hemoglobin 24.6 pg (26-34); Mean Corpuscular Volume 84.9 fl (80-100); Mean Platelet Volume 9.4 fl (7.4-10.4); Monocytes Absolute Auto 0.5 K/mm3 (0.1-0.6); Monocytes Percent Auto 5.8 % (2.6-8.5); Neutrophils Absolute Auto 6.7 K/mm3 (1.3-6.7); Nucleated Red Blood Cells Perc 0.3 % (0.0-0.2); Platelet Count Result 224 k/mm3 (150-375); Red Blood Count 3.58 M/mm3 (4.2-5.4); Red Cell Distribution Width 18.1 % (11.5-14.5); White Blood Count 7.7 K/mm3 (4.5-10.0)
[2022-09-10 04:47] LABS: Alanine Aminotransferase 14 U/L (6-35); Albumin Level 3.6 g/dL (3.5-5.1); Alkaline Phosphatase 49 U/L (38-126); Anion Gap 5 mmol/L (8-16); Aspartate Amino Transferase 28 U/L (14-36); Bilirubin,Total 0.8 mg/dL (0.2-1.3); Blood Urea Nitrogen 20 mg/dL (7-17); Calcium 8.3 mg/dL (8.4-10.2); Carbon Dioxide 31 mmol/L (22-30); Chloride 101 mmol/L (98-107); Estimated Glomerular Filt Rate 47; Glucose 115 mg/dL (65-110); Magnesium 2.3 mg/dL (1.6-2.3); Sodium 137 mmol/L (137-145)
[2022-09-10 05:03] LABS: Hypochromasia 1+ (NORMAL); Platelet Estimate Adequate (Adequate); Poikilocytosis 1+ (NORMAL); Schistocytes None Seen (NORMAL)
[2022-09-10] MEDS: ALBUTEROL SULFATE (*SP) AEROSOL 1 PUFF 2 PUFF INHALATION (07:55)
[2022-09-10] MEDS: FLUTICASONE/SALMETEROL 45-21 MCG INHALER 1 PUFF 2 PUFF INHALATION ×2 (07:55→21:02)
[2022-09-10] MEDS: METOPROLOL SUCCINATE EXT REL 50 MG TABCR PO (08:43)
[2022-09-10] MEDS: polyethylene glycoL 3350 17 GM POWD.PACK PO (08:43)
[2022-09-10] MEDS: LIDOCAINE 5% PATCH 1 PATCH TRANSDERM (08:43)
[2022-09-10] MEDS: PANTOPRAZOLE 40 MG TABLET PO ×2 (08:43→20:45)
[2022-09-10] MEDS: GABAPENTIN 100 MG CAPSULE PO ×2 (08:43→13:51)
[2022-09-10] MEDS: IRON SUCROSE COMPLEX 500 MG in SODIUM CHLORIDE 0.9% IV 250 ML 78.5 MG IVPB (08:43)
[2022-09-10] MEDS: FUROSEMIDE 40 MG TABLET PO (08:44)
[2022-09-10] MEDS: FERROUS SULFATE 324 MG TABLET PO ×2 (08:44→19:18)
[2022-09-10] MEDS: THERAPEUTIC MULTIVITAMINS/MINERALS TAB (*BKC) 1 TABLET PO (08:44)
[2022-09-10] MEDS: amLODIPine BESYLATE 5 MG TABLET PO (08:44)
[2022-09-10] MEDS: ACETAMINOPHEN 500 MG TABLET PO (08:57)
[2022-09-10 11:50] LABS: IFOB Positive Control Positive; Immunochemical Fecal Occult Bl Negative (N)
--- NOTE | 2022-09-10 12:46 | PM.IMPN ---
Progress Note: A&P Assessment and Plan (1) Altered mental status: Code(s): R41.82 - Altered mental status, unspecified Status: Acute Assessment and Plan: MRI brain with moderate chronic microvascular ischemic change with no acute abnormality. Neurology consulted (2) Symptomatic anemia: Code(s): D64.9 - Anemia, unspecified Status: Acute Assessment and Plan: Watch hb see below. (3) Contusion of leg: Qualifiers: Encounter type: subsequent encounter Laterality: unspecified laterality Qualified Code(s): S80.10XD - Contusion of unspecified lower leg, subsequent encounter Code(s): S80.10XA - Contusion of unspecified lower leg, initial encounter Status: Acute Assessment and Plan: Consult Dr Sommers regarding stopping OAC warm compresses on knees OAC on hold presently Plan 87-year-old history of hypertension diastolic heart failure COPD DVT peptic ulcer disease and GERD presented after fall and multiple extensive bruising to the legs. No evidence of acute traumatic fracture on imaging reported generalized weakness hemoccult negative but noted to be anemic on presentation. On anticoagulation for DVT history of COPD on 2 L oxygen. Pt daughter in the room long discussion about OAC pt would like to talk to hematology before stopping. History of dementia and multiple falls and long term Chest x-ray hazy retrocardiac airspace disease stable right apical nodule stable ED over time. Suggest benign in ED. 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 On Protonix GI consulted. Remote history of peptic ulcer disease with GI bleed in 2020. GI will be consulted. Hematology has also been consulted. Getting IV iron. GI planning to do EGD. Daughter refuses to get colonoscopy evaluation. Shaking episode/episode of right eyelid drooping unclear etiology Right eye conjunctivitis will start Cipro antibiotic eyedrop History of DVT 2019 1 of 2 peroneal veins with indeterminate V/Q scan. Patient is also status post IVC filter placement in 2020 History of CHF COPD with mild wheezing. Will add DuoNeb treatment. Chest x-ray with stable left basal opacity. CT abdomen revealed atelectasis in the lung bases. CKD stage III Hypertension Hyperlipidemia B12 deficiency T11 compression fracture which is chronic neurosurgery evaluated Subjective Date/time seen: 09/10/22 12:46 Interval history: 87-year-old history of hypertension diastolic heart failure COPD DVT peptic ulcer disease and GERD presented after fall and multiple extensive bruising to the legs. No evidence of acute traumatic fracture on imaging reported generalized weakness hemoccult negative but noted to be anemic on presentation. On anticoagulation for DVT history of COPD on 2 L oxygen. Pt daughter in the room long discussion about OAC pt would like to talk to hematology before stopping History of dementia and multiple falls and long term Chest x-ray hazy retrocardiac airspace disease stable right apical nodule stable ED over time. Suggest benign in ED. 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 Patient feels a little tired today. Daughter at bedside discussed with her. Started as 1 get colonoscopy done. Okay with EGD. No leg swelling she has been whee
--- NOTE | 2022-09-10 12:53 | PCOTNOTE ---
Attempted to see pt for Occupational Therapy treatment. Both pt and pt's daughter state that today is not a good day and declined to get out of bed and/or participate in therapeutic activities at this time. Pt also reports having a headache. RN is aware of pt's refusal and c/o headache. Will continue per POC duration/frequency tomorrow.
[2022-09-10] MEDS: IPRATROPIUM BR 0.02% INH SOLN 0.5 MG/2.5 ML VIAL INHALATION ×2 (13:45→21:01)
[2022-09-10] MEDS: ALBUTEROL SULFATE NEB 2.5 MG/3 ML INH INHALATION ×2 (13:45→21:02)
[2022-09-10] MEDS: CIPROFLOXACIN HCL 0.3% OP SOLN 2.5 ML BTL 2 DROP RIGHT EYE ×3 (13:50→20:45)
[2022-09-10] MEDS: VANCOMYCIN 1,250 MG/NS 250 ML 1,250 MG/250 ML BAG 166.67 MG IVPB (13:51)
--- NOTE | 2022-09-10 14:58 | PCSTNOTE ---
Bedside swallowing evaluation attempted, patient is not responsive enough to participate at this time. Will be on schedule to be seen again tomorrow.
--- NOTE | 2022-09-10 15:01 | PCPTNOTE ---
14:55 attempted to see pt, pt receiving diagnositc ultrasound and daughter in room, pt is too larthargic to participate and daughter asked for therapy to come back tomorrow.
--- NOTE | 2022-09-10 15:05 | PC.NURSE ---
Spoke with Ivonne regarding patient becoming more somnolent and shivering. Order for UA, Lactic acid, and ABG given.
[2022-09-10 15:54] LABS: Alveolar/Arterial O2 Gradient 110.1 mmHg; Base Excess ABG 0.8 mEq/l (+/-2.0); Fractional Inspired Oxygen 28 %; HCO3 ABG 23.4 mEq/l (22.0-26.0); Oxygen Content ABG 13.2 %vol (16.0-22.0); Oxygen Saturation ABG 90.6 % (95.0-100.0); Oxyhemoglobin 88.3 % THb (90.0-100.0); PCO2 ABG 30.9 mmHg (35.0-45.0); PO2 ABG 53.1 mmHg (80.0-100.0); Total Hemoglobin 10.6 g/dL (12.0-18.0); pH ABG 7.498 (7.350-7.450)
[2022-09-10 15:55] LABS: Site Drawn RIGHT RADIAL
[2022-09-10 15:56] LABS: Device NASAL CANNULA
[2022-09-10 16:14] LABS: Lactic Acid Reflex 1.5 mmol/L (0.7-2.0)
[2022-09-10] MEDS: ACETAMINOPHEN 650 MG SUPPOSITORY RECTAL (17:56)
[2022-09-10 18:52] LABS: Appearance Urine Clear (Clear); Bacteria Urine None Seen /hpf; Bilirubin Urine Negative (Negative); Blood Urine 1+ (Negative); Color Urine Yellow (Yellow); Glucose Urine UA Negative (Negative); Ketones Urine Negative (Negative); Leukocyte Esterase Ur Negative LEU/UL (NEGATIVE); Need Manual Microscopic Reviewed; Nitrate Urine Negative (Negative); Non Pathogenic Casts 0-2; Protein Urine Negative (Negative); RBC Urine 0-2 /hpf (0-2); Specific Grav Ur 1.011 (1.001-1.035); Squamous Epithelial Cell Urine None seen /hpf (Few); Urobilinogen Urine 0.2 mg/dL (<2.0); WBC Urine 0-5 /hpf (0-3); pH Urine 7.5 (5.0-9.0)
[2022-09-10 18:53] LABS: Add Urine Microscopic? YES
[2022-09-10] MEDS: CEFEPIME 1 GM/NS 50 ML 1 GM/50 ML BAG IVPB (19:18)
[2022-09-10] MEDS: CITALOPRAM HYDROBROMIDE 20 MG TABLET 40 MG PO (20:44)
[2022-09-11] VITALS (22 sets, daily range): BP systolic 98–139; BP diastolic 45–88; PULSE 66–86; RESP 16–20; TEMP 35.9–37; O2SAT 89–97
[2022-09-11] MEDS: ALBUTEROL SULFATE NEB 2.5 MG/3 ML INH INHALATION ×4 (02:15→20:57)
[2022-09-11] MEDS: IPRATROPIUM BR 0.02% INH SOLN 0.5 MG/2.5 ML VIAL INHALATION ×4 (02:15→20:57)
[2022-09-11 04:36] LABS: Basophils Absolute Auto 0.1 K/mm3 (0.0-0.1); Basophils Percent Auto 0.8 % (0.2-1.2); Eosinophils Percent Auto 0.3 % (0-4.4); Hematocrit 28.2 % (37.0-47.0); Hemoglobin 8.2 g/dL (12.0-15.0); Immature Granulocyte Absolute 0.04 K/mm3 (0.00-0.031); Immature Granulocyte Percent A 0.6 % (0-0.5); Lymphocytes Absolute Auto 0.37 K/mm3 (0.9-3.2); Lymphocytes Percent Auto 5.7 % (18.3-44.2); Mean Corpuscular HGB Conc 29.1 g/dl (32-36); Mean Corpuscular Hemoglobin 24.8 pg (26-34); Mean Corpuscular Volume 85.5 fl (80-100); Mean Platelet Volume 9.1 fl (7.4-10.4); Monocytes Absolute Auto 0.5 K/mm3 (0.1-0.6); Monocytes Percent Auto 7.4 % (2.6-8.5); Neutrophils Absolute Auto 5.6 K/mm3 (1.3-6.7); Neutrophils Percent Auto 85.2 % (45.5-73.1); Nucleated Red Blood Cells Perc 0.6 % (0.0-0.2); Platelet Count Result 164 k/mm3 (150-375); Red Cell Distribution Width 19.8 % (11.5-14.5); White Blood Count 6.5 K/mm3 (4.5-10.0)
[2022-09-11 04:46] LABS: Alanine Aminotransferase 16 U/L (6-35); Albumin Level 3.5 g/dL (3.5-5.1); Alkaline Phosphatase 48 U/L (38-126); Anion Gap 4 mmol/L (8-16); Aspartate Amino Transferase 39 U/L (14-36); Bilirubin,Total 0.7 mg/dL (0.2-1.3); Blood Urea Nitrogen 17 mg/dL (7-17); Calcium 8.2 mg/dL (8.4-10.2); Carbon Dioxide 30 mmol/L (22-30); Chloride 103 mmol/L (98-107); Estimated Glomerular Filt Rate 52; Glucose 108 mg/dL (65-110); Magnesium 2.3 mg/dL (1.6-2.3); Potassium 3.1 mmol/L (3.4-5.0); Sodium 137 mmol/L (137-145)
[2022-09-11 05:07] LABS: Anisocytosis 1+ (NORMAL); Hypochromasia 1+ (NORMAL); Platelet Estimate Adequate (Adequate); Poikilocytosis 1+ (NORMAL)
[2022-09-11 05:08] LABS: Schistocytes None Seen (NORMAL)
[2022-09-11] MEDS: CEFEPIME 1 GM/NS 50 ML 1 GM/50 ML BAG IVPB ×2 (05:34→17:52)
[2022-09-11] MEDS: CIPROFLOXACIN HCL 0.3% OP SOLN 2.5 ML BTL 2 DROP RIGHT EYE ×5 (05:35→21:13)
[2022-09-11] MEDS: FLUTICASONE/SALMETEROL 45-21 MCG INHALER 1 PUFF 2 PUFF INHALATION ×2 (08:00→20:58)
[2022-09-11] MEDS: POTASSIUM CHLORIDE 20 MEQ ER TABLET 40 MEQ PO (08:30)
[2022-09-11] MEDS: FERROUS SULFATE 324 MG TABLET PO ×2 (08:30→18:47)
[2022-09-11] MEDS: METOPROLOL SUCCINATE EXT REL 50 MG TABCR PO (08:32)
[2022-09-11] MEDS: FUROSEMIDE 40 MG TABLET PO (08:32)
[2022-09-11] MEDS: LIDOCAINE 5% PATCH 1 PATCH TRANSDERM (08:33)
[2022-09-11] MEDS: THERAPEUTIC MULTIVITAMINS/MINERALS TAB (*BKC) 1 TABLET PO (08:34)
[2022-09-11] MEDS: PANTOPRAZOLE 40 MG TABLET PO ×2 (08:34→21:14)
[2022-09-11] MEDS: polyethylene glycoL 3350 17 GM POWD.PACK PO (08:35)
[2022-09-11] MEDS: amLODIPine BESYLATE 5 MG TABLET PO (08:48)
--- NOTE | 2022-09-11 12:53 | PM.IMPN ---
Progress Note: A&P Assessment and Plan (1) Altered mental status: Code(s): R41.82 - Altered mental status, unspecified Status: Acute Assessment and Plan: MRI brain with moderate chronic microvascular ischemic change with no acute abnormality. Neurology consulted (2) Symptomatic anemia: Code(s): D64.9 - Anemia, unspecified Status: Acute Assessment and Plan: Watch hb see below. (3) Contusion of leg: Qualifiers: Encounter type: subsequent encounter Laterality: unspecified laterality Qualified Code(s): S80.10XD - Contusion of unspecified lower leg, subsequent encounter Code(s): S80.10XA - Contusion of unspecified lower leg, initial encounter Status: Acute Assessment and Plan: Consult Dr Sommers regarding stopping OAC warm compresses on knees OAC on hold presently Plan 87-year-old history of hypertension diastolic heart failure COPD DVT peptic ulcer disease and GERD presented after fall and multiple extensive bruising to the legs. No evidence of acute traumatic fracture on imaging reported generalized weakness hemoccult negative but noted to be anemic on presentation. On anticoagulation for DVT history of COPD on 2 L oxygen. Pt daughter in the room long discussion about OAC pt would like to talk to hematology before stopping. History of dementia and multiple falls and group home Chest x-ray hazy retrocardiac airspace disease stable right apical nodule stable ED over time. Suggest benign in ED. 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 On Protonix GI consulted. Remote history of peptic ulcer disease with GI bleed in 2019. GI will be consulted. Hematology has also been consulted. Getting IV iron. GI planning to do EGD. Daughter refuses to get colonoscopy evaluation. # Shaking episode/episode of right eyelid drooping unclear etiology. MRI brain negative ro acute stroke # Right eye conjunctivitis will start Cipro antibiotic eyedrop # History of DVT 2019 1 of 2 peroneal veins with indeterminate V/Q scan. Patient is also status post IVC filter placement in 2019 # History of CHF # COPD with mild wheezing. Will add DuoNeb treatment. Chest x-ray with stable left basal opacity. CT abdomen revealed atelectasis in the lung bases. # CKD stage III # Hypertension # Hyperlipidemia # B12 deficiency # T11 compression fracture which is chronic neurosurgery evaluated # urinary retenteion 09/10/2022: s/p placement of malone catheter. Subjective Date/time seen: 09/11/22 12:53 Interval history: 87-year-old history of hypertension diastolic heart failure COPD DVT peptic ulcer disease and GERD presented after fall and multiple extensive bruising to the legs. No evidence of acute traumatic fracture on imaging reported generalized weakness hemoccult negative but noted to be anemic on presentation. On anticoagulation for DVT history of COPD on 2 L oxygen. Pt daughter in the room long discussion about OAC pt would like to talk to hematology before stopping History of dementia and multiple falls and group home Chest x-ray hazy retrocardiac airspace disease stable right apical nodule stable ED over time. Suggest benign in ED. 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 Patient feels a little tired today. Da
--- NOTE | 2022-09-11 13:40 | PCSTNOTE ---
Bedside swallowing evaluation. Patient upright in chair with tray table in place. Oral peripheral examination results within functional limits. Speech is intelligible, vocal quality is unremarkable. Per patient and daughter who is present at bedside she is much more alert today and close to prior level, other than a little weak. Trials of thin liquid by straw and solid by hand were observed, with patient feeding self. No signs of aspiration observed. Per patient she is not having any swallowing difficulties today. Please note that silent aspiration cannot be ruled out at bedside and can only be evaluated via modified barium swallow study. Recommendations: regular texture diet and thin liquids, no further speech therapy recommended. Thank you for the referral of this patient.
[2022-09-11] MEDS: CITALOPRAM HYDROBROMIDE 20 MG TABLET 40 MG PO (21:14)
[2022-09-12] VITALS (21 sets, daily range): BP systolic 116–140; BP diastolic 49–69; PULSE 71–88; RESP 16–27; TEMP 36.4–37.1; O2SAT 90–100
[2022-09-12] MEDS: IPRATROPIUM BR 0.02% INH SOLN 0.5 MG/2.5 ML VIAL INHALATION ×4 (02:20→20:24)
[2022-09-12] MEDS: ALBUTEROL SULFATE NEB 2.5 MG/3 ML INH INHALATION ×4 (02:20→20:24)
[2022-09-12] MEDS: VANCOMYCIN 1,250 MG/NS 250 ML 1,250 MG/250 ML BAG 166 MG IVPB (02:42)
[2022-09-12] MEDS: CEFEPIME 1 GM/NS 50 ML 1 GM/50 ML BAG IVPB ×2 (05:15→17:40)
[2022-09-12] MEDS: CIPROFLOXACIN HCL 0.3% OP SOLN 2.5 ML BTL 2 DROP RIGHT EYE ×4 (05:15→20:48)
[2022-09-12 06:03] LABS: Basophils Absolute Auto 0.1 K/mm3 (0.0-0.1); Basophils Percent Auto 0.9 % (0.2-1.2); Eosinophils Absolute Auto 0.1 K/mm3 (0-0.3); Eosinophils Percent Auto 1.2 % (0-4.4); Hematocrit 29.1 % (37.0-47.0); Hemoglobin 8.2 g/dL (12.0-15.0); Immature Granulocyte Absolute 0.04 K/mm3 (0.00-0.031); Immature Granulocyte Percent A 0.7 % (0-0.5); Lymphocytes Absolute Auto 0.78 K/mm3 (0.9-3.2); Lymphocytes Percent Auto 13.5 % (18.3-44.2); Mean Corpuscular HGB Conc 28.2 g/dl (32-36); Mean Corpuscular Hemoglobin 24.6 pg (26-34); Mean Corpuscular Volume 87.1 fl (80-100); Monocytes Absolute Auto 0.7 K/mm3 (0.1-0.6); Monocytes Percent Auto 12.7 % (2.6-8.5); Neutrophils Absolute Auto 4.1 K/mm3 (1.3-6.7); Nucleated Red Blood Cells Perc 0.3 % (0.0-0.2); Platelet Count Result 156 k/mm3 (150-375); Red Blood Count 3.34 M/mm3 (4.2-5.4); Red Cell Distribution Width 20.2 % (11.5-14.5); White Blood Count 5.8 K/mm3 (4.5-10.0)
[2022-09-12 06:22] LABS: Alanine Aminotransferase 21 U/L (6-35); Albumin Level 3.5 g/dL (3.5-5.1); Alkaline Phosphatase 48 U/L (38-126); Anion Gap 5 mmol/L (8-16); Aspartate Amino Transferase 40 U/L (14-36); Bilirubin,Total 0.7 mg/dL (0.2-1.3); Blood Urea Nitrogen 16 mg/dL (7-17); Calcium 8.2 mg/dL (8.4-10.2); Carbon Dioxide 27 mmol/L (22-30); Chloride 105 mmol/L (98-107); Estimated Glomerular Filt Rate 52; Glucose 99 mg/dL (65-110); Magnesium 2.1 mg/dL (1.6-2.3); Potassium 3.4 mmol/L (3.4-5.0); Sodium 137 mmol/L (137-145)
[2022-09-12 06:40] LABS: Platelet Estimate Adequate (Adequate)
[2022-09-12 06:41] LABS: Anisocytosis 1+ (NORMAL); Hypochromasia 2+ (NORMAL)
[2022-09-12 06:42] LABS: Microcytosis 1+ (NORMAL); Schistocytes None Seen (NORMAL)
[2022-09-12] MEDS: FLUTICASONE/SALMETEROL 45-21 MCG INHALER 1 PUFF 2 PUFF INHALATION ×2 (07:10→20:24)
[2022-09-12] MEDS: METOPROLOL SUCCINATE EXT REL 50 MG TABCR PO (08:36)
[2022-09-12] MEDS: amLODIPine BESYLATE 5 MG TABLET PO (08:37)
[2022-09-12] MEDS: LIDOCAINE 5% PATCH 1 PATCH TRANSDERM (09:09)
--- NOTE | 2022-09-12 09:45 | PCOTNOTE ---
Attempted to see Patient at this time. Patient in bed, daughter present. Patient's daughter/patient declined services at this time due to her not feeling well and will be going down for an Endoscopy procedure at 1:00 this date. Patient stated, not interested .
--- NOTE | 2022-09-12 10:03 | PCPTNOTE ---
Attempted to see patient PT, however patient declined. Patient reported she did not sleep good last night and wanted to rest at this time. Patient's daughter reported patient is NPO and will be having a procedure this afternoon.
--- NOTE | 2022-09-12 11:45 | PM.IMPN ---
Progress Note: A&P Assessment and Plan (1) Altered mental status: Code(s): R41.82 - Altered mental status, unspecified Status: Acute Assessment and Plan: MRI brain with moderate chronic microvascular ischemic change with no acute abnormality. Neurology consulted (2) Symptomatic anemia: Code(s): D64.9 - Anemia, unspecified Status: Acute Assessment and Plan: Watch hb see below. (3) Contusion of leg: Qualifiers: Encounter type: subsequent encounter Laterality: unspecified laterality Qualified Code(s): S80.10XD - Contusion of unspecified lower leg, subsequent encounter Code(s): S80.10XA - Contusion of unspecified lower leg, initial encounter Status: Acute Assessment and Plan: Consult Dr Sommers regarding stopping OAC warm compresses on knees OAC on hold presently Plan 87-year-old history of hypertension diastolic heart failure COPD DVT peptic ulcer disease and GERD presented after fall and multiple extensive bruising to the legs. No evidence of acute traumatic fracture on imaging reported generalized weakness hemoccult negative but noted to be anemic on presentation. On anticoagulation for DVT history of COPD on 2 L oxygen. Pt daughter in the room long discussion about OAC pt would like to talk to hematology before stopping. History of dementia and multiple falls and intermediate Chest x-ray hazy retrocardiac airspace disease stable right apical nodule stable ED over time. Suggest benign in ED. 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 On Protonix GI consulted. Remote history of peptic ulcer disease with GI bleed in 2019. GI will be consulted. Hematology has also been consulted. Getting IV iron. GI planning to do EGD. Daughter refuses to get colonoscopy evaluation. For plan for EGD today # Shaking episode/episode of right eyelid drooping unclear etiology. MRI brain negative ro acute stroke # Right eye conjunctivitis will start Cipro antibiotic eyedrop # History of DVT 2019 1 of 2 peroneal veins with indeterminate V/Q scan. Patient is also status post IVC filter placement in 2019 # History of CHF # COPD with mild wheezing. Added treatment. Chest x-ray with stable left basal opacity. CT abdomen revealed atelectasis in the lung bases. # CKD stage III # Hypertension # Hyperlipidemia # B12 deficiency # T11 compression fracture which is chronic neurosurgery evaluated # urinary retenteion 09/10/2022: s/p placement of malone catheter. # right arm cellulitis on vancomycin and cefepime which was continued. Subjective Date/time seen: 09/12/22 11:45 Interval history: 87-year-old history of hypertension diastolic heart failure COPD DVT peptic ulcer disease and GERD presented after fall and multiple extensive bruising to the legs. No evidence of acute traumatic fracture on imaging reported generalized weakness hemoccult negative but noted to be anemic on presentation. On anticoagulation for DVT history of COPD on 2 L oxygen. Pt daughter in the room long discussion about OAC pt would like to talk to hematology before stopping History of dementia and multiple falls and intermediate Chest x-ray hazy retrocardiac airspace disease stable right apical nodule stable ED over time. Suggest benign in ED. 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
--- NOTE | 2022-09-12 12:25 | PC.NURSE ---
Pt to GI lab at 1225. Daughter is at bedside.
--- NOTE | 2022-09-12 12:44 | WPDANESEPPF ---
Anes - Initial Pre Proc Eval Procedure: Operation Date: 09/12/22 13:00 Proposed Procedures p Esophagogastroduodenoscopy - Rafat Balderas MD Date/Time: 09/12/22 12:44 Surgeon: Joaquin Inman MD Pre Op Diagnosis: Symptomatic Anemia,Closed Head Injury,Weakness Patient Data Age: 87 Gender: F Height: 1.5 m Weight: 70.4 kg Last Vital Signs Temp 98.3 F 09/12/22 08:30 Pulse 80 09/12/22 08:36 Resp 16 09/12/22 08:30 BP 132/56 L 09/12/22 08:30 Pulse Ox 92 09/12/22 08:30 O2 Del Method Nasal Cannula 09/12/22 07:12 O2 Flow Rate 3 09/12/22 07:12 FiO2 28 09/11/22 08:00 Allergies Allergy/AdvReac Type Severity Reaction Status Date / Time mushroom AdvReac Unknown Verified 11/01/21 11:57 oyster extract AdvReac Unknown Verified 11/01/21 11:57 Home Medications Medication Instructions Recorded Confirmed Type Ca 600 mg-D3 800 unit-magnes 40 1 tablet PO DAILY 07/04/19 09/06/22 History iq-rblr-hvs-paul-boron chewable tablet (Caltrate 600-D Plus Minerals) albuterol sulfate 90 mcg/actuation 2 puff inhalation QID 07/04/19 09/06/22 History aerosol inhaler budesonide-formoterol HFA 80 2 puff inhalation BID 07/04/19 09/06/22 History mcg-4.5 mcg/actuation aerosol inhaler (Symbicort) citalopram 40 mg tablet 40 mg PO HS 07/04/19 09/06/22 History gabapentin 100 mg capsule 100 mg PO TID 07/04/19 09/06/22 History hydrocodone 5 mg-acetaminophen 325 1 tablet PO DAILY PRN Pain 07/04/19 09/06/22 History mg tablet ondansetron HCl 4 mg tablet 4 mg DAILY PRN Nausea 07/04/19 09/06/22 History pantoprazole 40 mg tablet,delayed 40 mg PO Q12HR #60 tabs 07/10/19 09/06/22 Rx release acetaminophen 500 mg tablet 500 mg PO Q8H PRN Pain (Scale 06/14/21 09/06/22 History Score 1-3) amlodipine 5 mg tablet 5 mg PO DAILY 06/14/21 09/06/22 History cetirizine 10 mg tablet (Zyrtec) 10 mg PO DAILY 06/14/21 09/06/22 History furosemide 40 mg tablet 40 mg PO DAILY 06/14/21 09/06/22 History naloxone 4 mg/actuation nasal spray 4 mg intranasal Q3M PRN Opioid 06/14/21 09/06/22 History Overdose polyethylene glycol 3350 17 17 g PO DAILY 06/14/21 09/06/22 History gram/dose oral powder (Miralax) aspirin 81 mg tablet,delayed 81 mg PO QAM #30 tabs 06/17/21 09/06/22 Rx release atorvastatin 20 mg tablet 20 mg PO HS #30 tabs 06/17/21 09/06/22 Rx clopidogrel 75 mg tablet 75 mg PO QAM #30 tabs 06/17/21 09/06/22 Rx metoprolol succinate 50 mg 50 mg PO QAM #30 tabs 06/17/21 09/06/22 Rx tablet,extended release 24 hr nitroglycerin 0.4 mg sublingual 0.4 mg sublingual Q5MIN PRN Chest 06/17/21 09/06/22 Rx tablet (Nitrostat) Pain #30 tabs Laboratory Tests 09/12/22 05:34 WBC 5.8 K/mm3 (4.5-10.0) RBC 3.34 L M/mm3 (4.2-5.4) Hgb 8.2 L g/dL (12.0-15.0) Hct 29.1 L % (37.0-47.0) MCV 87.1 fl (80-100) MCH 24.6 L pg (26-34) MCHC 28.2 L g/dl (32-36) RDW 20.2 H % (11.5-14.5) Plt Count 156 k/mm3 (150-375) MPV 10.0 fl (7.4-10.4) Immature Gran % (Auto) 0.7 H % (0-0.5) Neut % (Auto) 71.0 % (45.5-73.1) Lymph % (Auto) 13.5 L % (18.3-44.2) [place] % (Auto) 12.7 H % (2.6-8.5) Eos % (Auto) 1.2 % (0-4.4) Baso % (Auto) 0.9 % (0.2-1.2) Lymph # (Auto) 0.78 L K/mm3 (0.9-3.2) [place] # (Auto) 0.7 H K/mm3 (0.1-0.6) Eos # (Auto) 0.1 K/mm3 (0-0.3) Baso # (Auto) 0.1 K/mm3 (0.0-0.1) Abs Immat Gran (auto) 0.04 H K/mm3 (0.00-0.031) Absolute Neuts (auto) 4.1 K/mm3 (1.3-6.7) Absolute Nucleated RBC 0.0 K/mm3 (0.0-0.012) Nucleated RBC % 0.3 H % (0.0-0.2) Platelet Estimate Adequate (Adequate) Hypochromasia 2+ (NORMAL) Anisocytosis 1+ (NORMAL) Microcytosis 1+ (NORMAL) Schistocytes None seen (NORMAL) Sodium 137 mmol/L (137-145) Potassium 3.4 mmol/L (3.4-5.0) Chloride 105 mmol/L (98-107) Carbon Dioxide 27 mmol/L (22-30) Anion
[2022-09-12] MEDS: LACTATED RINGERS 1,000 ML 150 ML IV CONT (12:48)
--- NOTE | 2022-09-12 13:29 | SUR.PHASEII ---
Shanon Hernández, RN, called report to floor RN
--- NOTE | 2022-09-12 13:35 | PCPTNOTE ---
Attempted to see patient for PT, however patient was out of the room for procedure.
--- NOTE | 2022-09-12 15:12 | PCOTNOTE ---
Attempted to see Patient for P.M. OT treatment session. Patient verbalized she was feeling to drowsy from her procedure this A.M . Patient stated, she needs to rest for today.
[2022-09-12] MEDS: FERROUS SULFATE 324 MG TABLET PO (17:39)
[2022-09-12] MEDS: CITALOPRAM HYDROBROMIDE 20 MG TABLET 40 MG PO (20:48)
[2022-09-13] VITALS (19 sets, daily range): BP systolic 139–146; BP diastolic 57–81; PULSE 66–84; RESP 16–24; TEMP 36.4–36.7; O2SAT 94–100
[2022-09-13] MEDS: IPRATROPIUM BR 0.02% INH SOLN 0.5 MG/2.5 ML VIAL INHALATION ×4 (00:44→20:30)
[2022-09-13] MEDS: ALBUTEROL SULFATE NEB 2.5 MG/3 ML INH INHALATION ×4 (00:44→20:30)
--- NOTE | 2022-09-13 00:48 | PCRCNOTE ---
Pt very SOB at rest prior to both NEB txs at 20:00 and 00:49, pt says she doesnt feel much relief after txs. Sats 94% on 3 Liters of oxygen.
[2022-09-13] MEDS: HYDROcodone/acetaminophen (*CRX) 5-325 MG TABLET 1 TAB PO (01:08)
[2022-09-13 05:46] LABS: Basophils Absolute Auto 0.1 K/mm3 (0.0-0.1); Basophils Percent Auto 0.9 % (0.2-1.2); Eosinophils Absolute Auto 0.1 K/mm3 (0-0.3); Eosinophils Percent Auto 0.7 % (0-4.4); Hematocrit 31.8 % (37.0-47.0); Hemoglobin 9.4 g/dL (12.0-15.0); Immature Granulocyte Absolute 0.06 K/mm3 (0.00-0.031); Immature Granulocyte Percent A 0.7 % (0-0.5); Lymphocytes Absolute Auto 0.86 K/mm3 (0.9-3.2); Lymphocytes Percent Auto 9.3 % (18.3-44.2); Mean Corpuscular HGB Conc 29.6 g/dl (32-36); Mean Corpuscular Hemoglobin 25.7 pg (26-34); Mean Corpuscular Volume 86.9 fl (80-100); Mean Platelet Volume 9.4 fl (7.4-10.4); Monocytes Absolute Auto 0.8 K/mm3 (0.1-0.6); Monocytes Percent Auto 8.6 % (2.6-8.5); Neutrophils Absolute Auto 7.4 K/mm3 (1.3-6.7); Neutrophils Percent Auto 79.8 % (45.5-73.1); Platelet Count Result 164 k/mm3 (150-375); Red Blood Count 3.66 M/mm3 (4.2-5.4); Red Cell Distribution Width 21.2 % (11.5-14.5); White Blood Count 9.2 K/mm3 (4.5-10.0)
[2022-09-13] MEDS: CIPROFLOXACIN HCL 0.3% OP SOLN 2.5 ML BTL 2 DROP RIGHT EYE ×5 (05:47→20:31)
[2022-09-13] MEDS: CEFEPIME 1 GM/NS 50 ML 1 GM/50 ML BAG IVPB (05:47)
[2022-09-13 06:00] LABS: Alanine Aminotransferase 24 U/L (6-35); Albumin Level 3.8 g/dL (3.5-5.1); Alkaline Phosphatase 50 U/L (38-126); Anion Gap 6 mmol/L (8-16); Aspartate Amino Transferase 36 U/L (14-36); Bilirubin,Total 0.7 mg/dL (0.2-1.3); Blood Urea Nitrogen 11 mg/dL (7-17); Calcium 8.8 mg/dL (8.4-10.2); Carbon Dioxide 26 mmol/L (22-30); Chloride 104 mmol/L (98-107); Estimated Glomerular Filt Rate > 60; Glucose 100 mg/dL (65-110); Magnesium 2.1 mg/dL (1.6-2.3); Potassium 3.7 mmol/L (3.4-5.0); Sodium 136 mmol/L (137-145)
[2022-09-13 06:14] LABS: Platelet Estimate Adequate (Adequate)
[2022-09-13 06:15] LABS: Hypochromasia 2+ (NORMAL); Large Platelets Present; Ovalocytes 1+ (NORMAL); Schistocytes None Seen (NORMAL)
[2022-09-13] MEDS: FLUTICASONE/SALMETEROL 45-21 MCG INHALER 1 PUFF 2 PUFF INHALATION ×2 (07:33→20:30)
[2022-09-13] MEDS: PANTOPRAZOLE 40 MG TABLET PO (08:18)
[2022-09-13] MEDS: amLODIPine BESYLATE 5 MG TABLET PO (08:18)
[2022-09-13] MEDS: METOPROLOL SUCCINATE EXT REL 50 MG TABCR PO (08:18)
[2022-09-13] MEDS: polyethylene glycoL 3350 17 GM POWD.PACK PO (08:18)
[2022-09-13] MEDS: FERROUS SULFATE 324 MG TABLET PO ×2 (08:18→16:06)
[2022-09-13] MEDS: FUROSEMIDE 40 MG TABLET PO (08:20)
[2022-09-13] MEDS: THERAPEUTIC MULTIVITAMINS/MINERALS TAB (*BKC) 1 TABLET PO (10:14)
[2022-09-13] MEDS: LIDOCAINE 5% PATCH 1 PATCH TRANSDERM (10:16)
--- NOTE | 2022-09-13 13:25 | PM.IMPN ---
Progress Note: A&P Assessment and Plan (1) Altered mental status: Code(s): R41.82 - Altered mental status, unspecified Status: Acute (2) Symptomatic anemia: Code(s): D64.9 - Anemia, unspecified Status: Acute Assessment and Plan: (3) Contusion of leg: Qualifiers: Encounter type: subsequent encounter Laterality: unspecified laterality Qualified Code(s): S80.10XD - Contusion of unspecified lower leg, subsequent encounter Code(s): S80.10XA - Contusion of unspecified lower leg, initial encounter Status: Acute Plan 87-year-old history of hypertension diastolic heart failure COPD DVT peptic ulcer disease and GERD presented after fall and multiple extensive bruising to the legs. No evidence of acute traumatic fracture on imaging. Reported Generalized weakness. Noted to be anemic on presentation. Hemoccult negative. On antiplatelets but not on anticoagulation History of dementia and multiple falls and fdc Workup revealed: chest x-ray hazy retrocardiac airspace disease stable right apical nodule stable ED over time. Suggest benign in ED. 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 On Protonix GI consulted. Remote history of peptic ulcer disease with GI bleed in 2019. GI will be consulted. Hematology has also been consulted. Getting IV iron. Status post EGD with findings of gastritis. Daughter refuses to get colonoscopy evaluation. H&H remains stable # Shaking episode/episode of right eyelid drooping unclear etiology. MRI brain negative ruled out acute stroke # Right eye conjunctivitis will start Cipro antibiotic eyedrop improving # History of DVT 2019 1 of 2 peroneal veins with indeterminate V/Q scan. Patient is also status post IVC filter placement in 2019. Not on anticoagulation # History of CHF # COPD with mild wheezing. Added treatment. Chest x-ray with stable left basal opacity. CT abdomen revealed atelectasis in the lung bases. # CKD stage III # Hypertension # Hyperlipidemia # B12 deficiency # T11 compression fracture which is chronic neurosurgery evaluated # urinary retenteion 09/10/2022: s/p placement of malone catheter. Will try void trial and removed the Malone catheter # right arm cellulitis on vancomycin and cefepime which was continued. Will switch to cefdinir today # disposition: Is to go to intermediate facility. Accepted at [facility] and awaiting bed availability Subjective Date/time seen: 09/13/22 13:25 Interval history: 87-year-old history of hypertension diastolic heart failure COPD DVT peptic ulcer disease and GERD presented after fall and multiple extensive bruising to the legs. No evidence of acute traumatic fracture on imaging reported generalized weakness hemoccult negative but noted to be anemic on presentation. On anticoagulation for DVT history of COPD on 2 L oxygen. Pt daughter in the room long discussion about OAC pt would like to talk to hematology before stopping History of dementia and multiple falls and fdc Chest x-ray hazy retrocardiac airspace disease stable right apical nodule stable ED over time. Suggest benign in ED. 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 Patient feels a little tired today. Daughter at bedside discussed with her.
[2022-09-13] MEDS: CITALOPRAM HYDROBROMIDE 20 MG TABLET 40 MG PO (20:31)
[2022-09-13] MEDS: CEFDINIR 300 MG CAPSULE PO (20:31)
[2022-09-14] VITALS (16 sets, daily range): BP systolic 108–126; BP diastolic 55–73; PULSE 64–83; RESP 12–20; TEMP 36.5–37; O2SAT 92–100
[2022-09-14] MEDS: ALBUTEROL SULFATE NEB 2.5 MG/3 ML INH INHALATION ×3 (02:55→20:11)
[2022-09-14] MEDS: IPRATROPIUM BR 0.02% INH SOLN 0.5 MG/2.5 ML VIAL INHALATION ×3 (02:55→20:10)
[2022-09-14 05:33] LABS: Basophils Absolute Auto 0.1 K/mm3 (0.0-0.1); Basophils Percent Auto 0.8 % (0.2-1.2); Eosinophils Absolute Auto 0.1 K/mm3 (0-0.3); Eosinophils Percent Auto 1.6 % (0-4.4); Hematocrit 30.8 % (37.0-47.0); Immature Granulocyte Absolute 0.04 K/mm3 (0.00-0.031); Immature Granulocyte Percent A 0.7 % (0-0.5); Lymphocytes Absolute Auto 0.75 K/mm3 (0.9-3.2); Lymphocytes Percent Auto 12.2 % (18.3-44.2); Mean Corpuscular HGB Conc 29.2 g/dl (32-36); Mean Corpuscular Hemoglobin 25.4 pg (26-34); Mean Corpuscular Volume 86.8 fl (80-100); Mean Platelet Volume 9.8 fl (7.4-10.4); Monocytes Absolute Auto 0.7 K/mm3 (0.1-0.6); Monocytes Percent Auto 10.7 % (2.6-8.5); Neutrophils Absolute Auto 4.6 K/mm3 (1.3-6.7); Platelet Count Result 153 k/mm3 (150-375); Red Blood Count 3.55 M/mm3 (4.2-5.4); Red Cell Distribution Width 21.5 % (11.5-14.5); White Blood Count 6.2 K/mm3 (4.5-10.0)
[2022-09-14 05:41] LABS: Anion Gap 7 mmol/L (8-16); Blood Urea Nitrogen 13 mg/dL (7-17); Calcium 8.5 mg/dL (8.4-10.2); Carbon Dioxide 25 mmol/L (22-30); Chloride 102 mmol/L (98-107); Estimated Glomerular Filt Rate 59; Glucose 96 mg/dL (65-110); Magnesium 1.9 mg/dL (1.6-2.3); Potassium 3.2 mmol/L (3.4-5.0); Sodium 134 mmol/L (137-145)
[2022-09-14 06:29] LABS: Anisocytosis 1+ (NORMAL); Hypochromasia 1+ (NORMAL); Platelet Estimate Adequate (Adequate); Schistocytes None Seen (NORMAL)
[2022-09-14] MEDS: FLUTICASONE/SALMETEROL 45-21 MCG INHALER 1 PUFF 2 PUFF INHALATION ×2 (07:59→20:11)
[2022-09-14] MEDS: HYDROcodone/acetaminophen (*CRX) 5-325 MG TABLET 1 TAB PO (08:56)
[2022-09-14] MEDS: THERAPEUTIC MULTIVITAMINS/MINERALS TAB (*BKC) 1 TABLET PO (08:58)
[2022-09-14] MEDS: FERROUS SULFATE 324 MG TABLET PO ×2 (08:58→17:44)
[2022-09-14] MEDS: METOPROLOL SUCCINATE EXT REL 50 MG TABCR PO (08:58)
[2022-09-14] MEDS: amLODIPine BESYLATE 5 MG TABLET PO (08:58)
[2022-09-14] MEDS: FUROSEMIDE 40 MG TABLET PO (08:58)
[2022-09-14] MEDS: PANTOPRAZOLE 40 MG TABLET PO (08:58)
[2022-09-14] MEDS: CIPROFLOXACIN HCL 0.3% OP SOLN 2.5 ML BTL 2 DROP RIGHT EYE ×4 (08:59→20:37)
[2022-09-14] MEDS: LIDOCAINE 5% PATCH 1 PATCH TRANSDERM (08:59)
[2022-09-14] MEDS: polyethylene glycoL 3350 17 GM POWD.PACK PO (09:00)
--- NOTE | 2022-09-14 10:28 | PM.IMPN ---
Progress Note: A&P Assessment and Plan (1) Altered mental status: Code(s): R41.82 - Altered mental status, unspecified Status: Acute (2) Symptomatic anemia: Code(s): D64.9 - Anemia, unspecified Status: Acute Assessment and Plan: (3) Contusion of leg: Qualifiers: Encounter type: subsequent encounter Laterality: unspecified laterality Qualified Code(s): S80.10XD - Contusion of unspecified lower leg, subsequent encounter Code(s): S80.10XA - Contusion of unspecified lower leg, initial encounter Status: Acute Plan 87-year-old history of hypertension diastolic heart failure COPD DVT peptic ulcer disease and GERD presented after fall and multiple extensive bruising to the legs. No evidence of acute traumatic fracture on imaging. Reported Generalized weakness. Noted to be anemic on presentation. Hemoccult negative. On antiplatelets but not on anticoagulation History of dementia and multiple falls and residential Workup revealed: chest x-ray hazy retrocardiac airspace disease stable right apical nodule stable ED over time. Suggest benign in ED. 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 On Protonix GI consulted. Remote history of peptic ulcer disease with GI bleed in 2019. GI will be consulted. Hematology has also been consulted. Getting IV iron. Status post EGD with findings of gastritis. Daughter refuses to get colonoscopy evaluation. H&H remains stable # Shaking episode/episode of right eyelid drooping unclear etiology. MRI brain negative ruled out acute stroke # Right eye conjunctivitis will start Cipro antibiotic eyedrop improving # History of DVT 2019 1 of 2 peroneal veins with indeterminate V/Q scan. Patient is also status post IVC filter placement in 2019. Not on anticoagulation # History of CHF # COPD with mild wheezing. Added treatment. Chest x-ray with stable left basal opacity. CT abdomen revealed atelectasis in the lung bases. # CKD stage III # Hypertension # Hyperlipidemia # B12 deficiency # T11 compression fracture which is chronic neurosurgery evaluated # urinary retenteion 09/10/2022: s/p placement of malone catheter. Will try void trial and removed the Malone catheter # right arm cellulitis on vancomycin and cefepime which was continued. Will switch to cefdinir today # disposition: Patient stable to be discharged to longterm facility. Per therapeutic case manager, patient accepted by [facility] and awaiting for insurance decision Subjective Date/time seen: 09/14/22 10:28 Interval history: 87-year-old history of hypertension diastolic heart failure COPD DVT peptic ulcer disease and GERD presented after fall and multiple extensive bruising to the legs. No evidence of acute traumatic fracture on imaging reported generalized weakness hemoccult negative but noted to be anemic on presentation. On anticoagulation for DVT history of COPD on 2 L oxygen. Pt daughter in the room long discussion about OAC pt would like to talk to hematology before stopping History of dementia and multiple falls and residential Chest x-ray hazy retrocardiac airspace disease stable right apical nodule stable ED over time. Suggest benign in ED. 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 Patient feels a little
[2022-09-14] MEDS: POTASSIUM CHLORIDE 20 MEQ PACKET (FOR LIQUID) 40 MEQ PO (11:05)
[2022-09-14] MEDS: CEFDINIR 300 MG CAPSULE PO ×2 (11:05→20:37)
--- NOTE | 2022-09-14 15:30 | PM.DS ---
DS: Admitting Diagnosis Discharge Date today Admitting Diagnosis (1) Altered mental status: ?Code(s): R41.82 - Altered mental status, unspecified ?Status:?Acute (2) Symptomatic anemia: ?Code(s): D64.9 - Anemia, unspecified ?Status:?Acute ?Assessment and Plan: ? (3) Contusion of leg: ?Qualifiers: ?Encounter type:?subse DS: Discharge Diagnosis Discharge Diagnosis (1) Altered mental status: Code(s): R41.82 - Altered mental status, unspecified Status: Acute (2) Symptomatic anemia: Code(s): D64.9 - Anemia, unspecified Status: Acute Assessment and Plan: (3) Contusion of leg: Qualifiers: Encounter type: subsequent encounter Laterality: unspecified laterality Qualified Code(s): S80.10XD - Contusion of unspecified lower leg, subsequent encounter Code(s): S80.10XA - Contusion of unspecified lower leg, initial encounter Status: Acute DS: Summary Hospital Course Reason for hospitalization: ?fall and multiple extensive bruising to the legs Hospital Course: 87-year-old history of hypertension diastolic heart failure COPD DVT peptic ulcer disease and GERD presented after fall and multiple extensive bruising to the legs.? No evidence of acute traumatic fracture on imaging.? Reported? Generalized weakness.? Noted to be anemic on presentation.? Hemoccult negative.? On antiplatelets but not on anticoagulation History of dementia and multiple falls and group home Workup revealed:? chest x-ray hazy retrocardiac airspace disease stable right apical nodule stable ED over time.? Suggest benign in ED.? 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 On Protonix GI consulted.? Remote history of peptic ulcer disease with GI bleed in 2019.? GI will be consulted.? Hematology has also been consulted.? Getting IV iron.? Status post EGD with findings of gastritis.? Daughter refuses to get colonoscopy evaluation.? H&H remains stable # Shaking episode/episode of right eyelid drooping unclear etiology. MRI brain negative ruled out acute stroke # Right eye conjunctivitis will start Cipro antibiotic eyedrop improving # History of DVT 2019 1 of 2 peroneal veins with indeterminate V/Q scan.? Patient is also status post IVC filter placement in 2019.? Not on anticoagulation # History of CHF # COPD with mild wheezing.? Added treatment.? Chest x-ray with stable left basal opacity.? CT abdomen revealed atelectasis in the lung bases. # CKD stage III # Hypertension # Hyperlipidemia # B12 deficiency # T11 compression fracture which is chronic neurosurgery evaluated # urinary retenteion 09/10/2022: s/p placement of malone catheter.? Will try void trial and removed the Malone catheter # right arm cellulitis on vancomycin and cefepime which was continued.? Will switch to cefdinir today # disposition:? Patient stable to be discharged to? fdc facility.? Per bilingual patient support caseworker, patient accepted by [facility] and awaiting for insurance decision Time Spent with Patient Time attestation: Total time spent providing and/or coordinating discharge services: Exam Narrative: GENERAL: The patient is well developed, not in acute distress HEENT: Nonicteric sclerae, PERRLA, EOMI. Oropharynx clear. Moist mucous membranes. Conjunctivae appear well perfused. CHEST: Chest wall is nontender. HEART: Regular rate and rhythm without murmur, rubs, or gallops LUNGS: Diminished breath sounds bilaterally. No wheezes. No respiratory distress ABDOMEN: Soft, positive bowel sounds, non-tender, no organomegaly. SKIN: No rash, extensive extremity ecchymosis not
[2022-09-14] MEDS: CITALOPRAM HYDROBROMIDE 20 MG TABLET 40 MG PO (20:37)
[2022-09-15] VITALS (7 sets, daily range): BP systolic 135; BP diastolic 53; PULSE 70–81; RESP 12–18; TEMP 36.3; O2SAT 94–97
[2022-09-15] MEDS: ALBUTEROL SULFATE NEB 2.5 MG/3 ML INH INHALATION ×2 (01:16→07:34)
[2022-09-15] MEDS: IPRATROPIUM BR 0.02% INH SOLN 0.5 MG/2.5 ML VIAL INHALATION ×2 (01:16→07:34)
[2022-09-15] MEDS: CIPROFLOXACIN HCL 0.3% OP SOLN 2.5 ML BTL 2 DROP RIGHT EYE ×3 (04:00→12:00)
[2022-09-15] MEDS: FLUTICASONE/SALMETEROL 45-21 MCG INHALER 1 PUFF 2 PUFF INHALATION (07:34)
[2022-09-15] MEDS: THERAPEUTIC MULTIVITAMINS/MINERALS TAB (*BKC) 1 TABLET PO (08:14)
[2022-09-15] MEDS: amLODIPine BESYLATE 5 MG TABLET PO (08:14)
[2022-09-15] MEDS: PANTOPRAZOLE 40 MG TABLET PO (08:14)
[2022-09-15] MEDS: FUROSEMIDE 40 MG TABLET PO (08:14)
[2022-09-15] MEDS: LIDOCAINE 5% PATCH 1 PATCH TRANSDERM (08:14)
[2022-09-15] MEDS: polyethylene glycoL 3350 17 GM POWD.PACK PO (08:14)
[2022-09-15] MEDS: HYDROcodone/acetaminophen (*CRX) 5-325 MG TABLET 1 TAB PO (08:14)
[2022-09-15] MEDS: FERROUS SULFATE 324 MG TABLET PO (08:14)
[2022-09-15] MEDS: METOPROLOL SUCCINATE EXT REL 50 MG TABCR PO (08:15)
[2022-09-15] MEDS: CEFDINIR 300 MG CAPSULE PO (11:55)
--- NOTE | 2022-09-15 12:21 | PM.DS ---
DS: Admitting Diagnosis Discharge Date today Admitting Diagnosis Admitting Diagnosis (1) Altered mental status: ?Code(s): R41.82 - Altered mental status, unspecified ?Status:?Acute (2) Symptomatic anemia: ?Code(s): D64.9 - Anemia, unspecified ?Status:?Acute ?Assessment and Plan: ? (3) Contusion of leg: ?Qualifiers: ?Encounter type:?subse DS: Discharge Diagnosis Discharge Diagnosis (1) Altered mental status: Code(s): R41.82 - Altered mental status, unspecified Status: Acute (2) Symptomatic anemia: Code(s): D64.9 - Anemia, unspecified Status: Acute (3) Contusion of leg: Qualifiers: Encounter type: subsequent encounter Laterality: unspecified laterality Qualified Code(s): S80.10XD - Contusion of unspecified lower leg, subsequent encounter Code(s): S80.10XA - Contusion of unspecified lower leg, initial encounter Status: Acute (4) Chronic obstructive pulmonary disease: Code(s): J44.9 - Chronic obstructive pulmonary disease, unspecified Status: Acute (5) Hypertension: Code(s): I10 - Essential (primary) hypertension Status: Acute DS: Summary Hospital Course Reason for hospitalization: fall and multiple extensive bruising to the legs Hospital Course: 87-year-old history of hypertension diastolic heart failure COPD DVT peptic ulcer disease and GERD presented after fall and multiple extensive bruising to the legs.? No evidence of acute traumatic fracture on imaging.? Reported? Generalized weakness.? Noted to be anemic on presentation.? Hemoccult negative.? On antiplatelets but not on anticoagulation History of dementia and multiple falls and fpc Workup revealed:? chest x-ray hazy retrocardiac airspace disease stable right apical nodule stable ED over time.? Suggest benign in ED.? 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 On Protonix GI consulted.? Remote history of peptic ulcer disease with GI bleed in 2019.? GI will be consulted.? Hematology has also been consulted.? Getting IV iron.? Status post EGD with findings of gastritis.? Daughter refuses to get colonoscopy evaluation.? H&H remains stable # Shaking episode/episode of right eyelid drooping unclear etiology. MRI brain negative ruled out acute stroke # Right eye conjunctivitis will start Cipro antibiotic eyedrop improving # History of DVT 2019 1 of 2 peroneal veins with indeterminate V/Q scan.? Patient is also status post IVC filter placement in 2019.? Not on anticoagulation # History of CHF # COPD with mild wheezing.? Added treatment.? Chest x-ray with stable left basal opacity.? CT abdomen revealed atelectasis in the lung bases. # CKD stage III # Hypertension # Hyperlipidemia # B12 deficiency # T11 compression fracture which is chronic neurosurgery evaluated # urinary retenteion 09/10/2022: s/p placement of malone catheter.? Will try void trial and removed the Malone catheter # right arm cellulitis on vancomycin and cefepime which was continued.? Will switch to cefdinir today # disposition:? Patient stable to be discharged to? correction facility.? Per casework specialist, patient accepted [place] [facility] [place], patient's hemodynamic stable, afebrile Time Spent with Patient Time attestation: Total time spent providing and/or coordinating discharge services: Time spent: Greater than 30 minutes Exam Narrative: GENERAL: The patient is well developed, not in acute distress HEENT: Nonicteric sclerae, PERRLA, EOMI. Oropharynx clear. Moist mucous membranes. Conjunctivae appear well perfused. CHEST: Chest wall is nont
[2022-09-15 12:40] LABS: SARS-CoV-2 RNA PCR Negative (Negative)
== END 2022-09-15 13:15 | DRG 812 ==
LOC: ANHED 14:37 → ANHIMU 19:12 → ANH3MED 09-11 13:24
PROVIDERS: Emergency Medicine; Family Medicine; Internal Medicine; Internal Medicine Gastroenterology; Student in an Organized Health Care Education/Training Program; Admitting Provider Hospitalist; Emergency Provider General Practice; PCP Internal Medicine; Visit Provider Hospitalist
PROC: 0DJ08ZZ Inspection of Upper Intestinal Tract, Via Natural or Artificial Opening Endoscopic (ICD-10-PCS; CPT 43235; principal; 2022-09-12 13:00)
DX: D50.9 Iron deficiency anemia, unspecified (principal); I13.0 Hypertensive heart and chronic kidney disease with heart failure and stage 1 through stage 4 chronic kidney disease, or unspecified chronic kidney disease; I50.32 Chronic diastolic (congestive) heart failure; L03.113 Cellulitis of right upper limb; N18.30 Chronic kidney disease, stage 3 unspecified; D63.1 Anemia in chronic kidney disease; S80.12XA Contusion of left lower leg, initial encounter; S80.11XA Contusion of right lower leg, initial encounter; W06.XXXA Fall from bed, initial encounter; E78.5 Hyperlipidemia, unspecified; E53.8 Deficiency of other specified B group vitamins; F32.A Depression, unspecified; F03.90 Unspecified dementia, unspecified severity, without behavioral disturbance, psychotic disturbance, mood disturbance, and anxiety; H02.401 Unspecified ptosis of right eyelid; H10.9 Unspecified conjunctivitis; H71.92 Unspecified cholesteatoma, left ear; J44.9 Chronic obstructive pulmonary disease, unspecified; K21.9 Gastro-esophageal reflux disease without esophagitis; K44.9 Diaphragmatic hernia without obstruction or gangrene; K29.70 Gastritis, unspecified, without bleeding; M17.12 Unilateral primary osteoarthritis, left knee; R33.9 Retention of urine, unspecified; R25.1 Tremor, unspecified; S22.080D Wedge compression fracture of T11-T12 vertebra, subsequent encounter for fracture with routine healing; Z79.02 Long term (current) use of antithrombotics/antiplatelets; Z95.828 Presence of other vascular implants and grafts; Z99.81 Dependence on supplemental oxygen; Z20.822 Contact with and (suspected) exposure to COVID-19; Z87.11 Personal history of peptic ulcer disease; Z87.891 Personal history of nicotine dependence; Z86.718 Personal history of other venous thrombosis and embolism; Z79.82 Long term (current) use of aspirin
CPT/HCPCS: 36415; 36430; 36600; 70450; 70551; 71045; 71046; 72125; 73562; 73564; 73590; 74177; 80048; 80053; 81001; 82274; 82607; 82746; 82805; 83540; 83550; 83605; 83735; 83880; 84439; 84443; 84480; 85025; 85027; 86850; 86900; 86901; 86923; 87040; 87635; 88305; 92610; 93005; 93971; 94640; 94762; 97110; 97161; 97165; 97530; 97535; 99285; A9270; G0378; J0692; J1756; J2704; J3370; J7050; J7120; P9016; Q9967

== ENCOUNTER 2022-10-20 13:59 | Emergency (ER) | payer MEDICARE, MEDICAID, SELFPAY ==
[2022-10-20] VITALS (17 sets, daily range): BP systolic 111–122; BP diastolic 47–71; PULSE 51–73; RESP 12–18; TEMP 35.7; O2SAT 95–100
--- NOTE | ~2022-10-20 | XR_ITS ---
EXAMINATION: XR chest 2V DATE: 10/20/2022 15:11 INDICATION: Weakness. Hypotension. TECHNIQUE: frontal view of the chest was obtained. COMPARISON: Chest radiograph dated 09/13/2022 FINDINGS: Chronic atelectasis/scarring at the right apex which can be seen dating back to PET/CT dated 06/18/2014 . Retrocardiac opacity with smooth margins consistent with a large hiatal hernia. Significant improve ment in now minimal left basilar opacities and no change in mild right bibasilar opacities . No pleur al effusion or pneumothorax. Cardiomegaly. IMPRESSION: 1. Unchanged mild right and improved minimal left basilar opacities and favor atelectasis over mild p ulmonary edema or pneumonia. 2. Cardiomegaly. Reviewed, dictated and finalized at location L. IMPRESSION: 1. Unchanged mild right and improved minimal left basilar opacities and favor a telectasis over mild pulmonary edema or pneumonia. 2. Cardiomegaly.
--- NOTE | 2022-10-20 14:06 | ECG_ITS ---
Measurements Intervals [place] Rate: 53 P: 64 [place]: 161 QRS: 14 QRSD: 123 T: 8 QT: 450 QTc: 423 Interpretive Statements SINUS BRADYCARDIA RIGHT BUNDLE BRANCH BLOCK [120+ ms QRS DURATION, UPRIGHT V1, 40+ ms S IN I/aVL/V4/V5/V6] COMPARED TO ECG 09/06/2022 13:09:35 SINUS BRADYCARDIA NOW PRESENT Electronically Signed On 10-21-2022 8:50:09 CDT by Arnulfo Rodriguez M.D.
[2022-10-20 15:03] LABS: Basophils Absolute Auto 0.1 K/mm3 (0.0-0.1); Basophils Percent Auto 1.4 % (0.2-1.2); Eosinophils Absolute Auto 0.1 K/mm3 (0-0.3); Eosinophils Percent Auto 1.8 % (0-4.4); Hematocrit 36.8 % (37.0-47.0); Hemoglobin 11.2 g/dL (12.0-15.0); Immature Granulocyte Absolute 0.01 K/mm3 (0.00-0.031); Immature Granulocyte Percent A 0.2 % (0-0.5); Lymphocytes Absolute Auto 0.79 K/mm3 (0.9-3.2); Lymphocytes Percent Auto 16.1 % (18.3-44.2); Mean Corpuscular HGB Conc 30.4 g/dl (32-36); Mean Corpuscular Volume 95.3 fl (80-100); Mean Platelet Volume 10.3 fl (7.4-10.4); Monocytes Absolute Auto 0.5 K/mm3 (0.1-0.6); Monocytes Percent Auto 9.3 % (2.6-8.5); Neutrophils Absolute Auto 3.5 K/mm3 (1.3-6.7); Neutrophils Percent Auto 71.2 % (45.5-73.1); Platelet Count Result 158 k/mm3 (150-375); Red Blood Count 3.86 M/mm3 (4.2-5.4); Red Cell Distribution Width 23.1 % (11.5-14.5); White Blood Count 4.9 K/mm3 (4.5-10.0)
[2022-10-20 15:14] LABS: Alanine Aminotransferase 17 U/L (6-35); Albumin Level 3.8 g/dL (3.5-5.1); Alkaline Phosphatase 43 U/L (38-126); Anion Gap 3 mmol/L (8-16); Aspartate Amino Transferase 26 U/L (14-36); Bilirubin,Total 0.4 mg/dL (0.2-1.3); Blood Urea Nitrogen 27 mg/dL (7-17); Calcium 8.4 mg/dL (8.4-10.2); Carbon Dioxide 31 mmol/L (22-30); Chloride 102 mmol/L (98-107); Estimated Glomerular Filt Rate 39; Glucose 92 mg/dL (65-110); Potassium 3.4 mmol/L (3.4-5.0); Sodium 136 mmol/L (137-145)
[2022-10-20 15:23] LABS: Anisocytosis 1+ (NORMAL); Ovalocytes 1+ (NORMAL); Platelet Estimate Adequate (Adequate); Schistocytes None Seen (NORMAL)
--- NOTE | 2022-10-20 15:52 | PC.NURSE ---
Pt taken to XR.
--- NOTE | 2022-10-20 16:19 | ED.GENADULT ---
HPI - General Adult General Chief complaint: Recheck/Abnormal Lab/Rx Stated complaint: weakness and hypotension Time Seen by Provider: 10/20/22 15:53 Source: patient and family (daughter) Limitations: no limitations History of Present Illness HPI narrative: Patient is an 87-year-old female presented to the emergency department accompanied by her daughter from [facility] for a reading of a low blood pressure at the facility. Daughter notes that she was with the patient did not patient has otherwise been feeling well as of late however the instructor of nursing checked her blood pressure they typically do at the facility and noted that it was mildly low so daughter gave her some coffee and then it became normal and daughter did not feel as though the patient needed to come to the emergency department but the director of the facility insisted upon it. Patient does not she does feel mildly fatigued which she often feels but is otherwise been feeling well. Patient denies any melena, hematochezia, dysuria, hematuria, urinary frequency, urinary urgency, headache, vision changes, numbness, weakness, abdominal pain, chest pain, shortness of breath, cough, rash, fever, sick contacts, recent injuries, recent illness, diarrhea, vomiting. Patient has been taking all of her medications as prescribed without any recent changes. Daughter notes that the patient has a history of anemia for which she required a blood transfusion in the recent past and they are going to a prototype engineer manager in the next 1 week to get set up for iron transfusions and she has prompt follow-up with a primary care physician in the near future. Denies history of abnormal heart rhythms. Denies palpitations. Notes that she has been eating and drinking well. Related Data Home Medications Medication Instructions Recorded Confirmed Ca 600 mg-D3 800 unit-magnes 40 1 tablet PO DAILY 07/04/19 09/06/22 qf-[id number]-bmr-paul-boron chewable tablet (Caltrate 600-D Plus Minerals) albuterol sulfate 90 mcg/actuation 2 puff inhalation QID 07/04/19 09/06/22 aerosol inhaler budesonide-formoterol HFA 80 2 puff inhalation BID 07/04/19 09/06/22 mcg-4.5 mcg/actuation aerosol inhaler (Symbicort) citalopram 40 mg tablet 40 mg PO HS 07/04/19 09/06/22 gabapentin 100 mg capsule 100 mg PO TID 07/04/19 09/06/22 hydrocodone 5 mg-acetaminophen 325 1 tablet PO DAILY PRN Pain 07/04/19 09/06/22 mg tablet ondansetron HCl 4 mg tablet 4 mg DAILY PRN Nausea 07/04/19 09/06/22 acetaminophen 500 mg tablet 500 mg PO Q8H PRN Pain (Scale 06/14/21 09/06/22 Score 1-3) amlodipine 5 mg tablet 5 mg PO DAILY 06/14/21 09/06/22 cetirizine 10 mg tablet (Zyrtec) 10 mg PO DAILY 06/14/21 09/06/22 furosemide 40 mg tablet 40 mg PO DAILY 06/14/21 09/06/22 naloxone 4 mg/actuation nasal spray 4 mg intranasal Q3M PRN Opioid 06/14/21 09/06/22 Overdose polyethylene glycol 3350 17 17 g PO DAILY 06/14/21 09/06/22 gram/dose oral powder (Miralax) Allergies Allergy/AdvReac Type Severity Reaction Status Date / Time mushroom AdvReac Unknown Verified 10/20/22 15:11 oyster extract AdvReac Unknown Verified 10/20/22 15:11 Review of Systems Constitutional: Constitutional: Reports fatigue (chronic) and Denies fever(s) Eyes: Eyes: Denies change in vision ENT: Denies dizziness and Denies sore throat Cardiovascular: Cardiovascular: Denies chest pain Respiratory: Respiratory: Denies dyspnea Gastrointestinal: Gastrointestinal: Denies abdominal pain, Denies diarrhea, Denies nausea and Denies vomiting Genitourinary: Genitourinary: Denies abnormal vaginal bleeding Musculoskeletal: Musculoskeletal: Denies back pain and Denies myalgias Integumentary/Breasts: Skin/Breast: Denies rash Neurologic: Denies focal weakness and Denies numbness [facility] Past Medical History Medical History (Updated 10/21/22 @ 00:05 by Background Daemon) Acute on chronic anemia Chronic anemia Chronic diastolic heart failure Chr
[2022-10-20 16:26] LABS: Appearance Urine Clear (Clear); Bacteria Urine None Seen /hpf; Bilirubin Urine Negative (Negative); Blood Urine Negative (Negative); Color Urine Yellow (Yellow); Glucose Urine UA Negative (Negative); Ketones Urine Negative (Negative); Leukocyte Esterase Ur Trace LEU/UL (Negative); Nitrate Urine Negative (Negative); Non Pathogenic Casts 0-2; Protein Urine Negative (Negative); RBC Urine 0-2 /hpf (0-2); Specific Grav Ur 1.008 (1.001-1.035); Squamous Epithelial Cell Urine None seen /hpf (Few); WBC Urine 0-5 /hpf
[2022-10-20 16:32] LABS: Add Urine Microscopic? YES
[2022-10-20 16:37] LABS: Magnesium 1.9 mg/dL (1.6-2.3)
[2022-10-20 16:49] LABS: Troponin I < 0.012 ng/mL (0.000-0.034)
== END 2022-10-20 18:06 ==
PROVIDERS: Preventive Medicine Aerospace Medicine; Emergency Provider Student in an Organized Health Care Education/Training Program; PCP Internal Medicine
DX: F03.90 Unspecified dementia, unspecified severity, without behavioral disturbance, psychotic disturbance, mood disturbance, and anxiety (principal); I13.0 Hypertensive heart and chronic kidney disease with heart failure and stage 1 through stage 4 chronic kidney disease, or unspecified chronic kidney disease; I50.32 Chronic diastolic (congestive) heart failure; N18.9 Chronic kidney disease, unspecified; J44.9 Chronic obstructive pulmonary disease, unspecified; D64.9 Anemia, unspecified; J96.11 Chronic respiratory failure with hypoxia; E53.8 Deficiency of other specified B group vitamins; E78.5 Hyperlipidemia, unspecified; K21.9 Gastro-esophageal reflux disease without esophagitis; F32.A Depression, unspecified; Z99.81 Dependence on supplemental oxygen; Z86.718 Personal history of other venous thrombosis and embolism; Z87.11 Personal history of peptic ulcer disease; R00.1 Bradycardia, unspecified; I45.10 Unspecified right bundle-branch block
CPT/HCPCS: 36415; 71046; 80053; 81001; 83735; 84484; 85025; 93005; 99284

== ENCOUNTER 2022-10-26 14:21 | Outpatient (CLI) | payer MEDICARE, MEDICAID, SELFPAY ==
[2022-10-26 14:57] LABS: Hemoglobin 12.2 g/dL (12.0-15.0); Mean Corpuscular HGB Conc 31.3 g/dl (32-36); Mean Corpuscular Hemoglobin 29.5 pg (26-34); Mean Corpuscular Volume 94.2 fl (80-100); Mean Platelet Volume 10.5 fl (7.4-10.4); Platelet Count Result 163 k/mm3 (150-375); Red Blood Count 4.14 M/mm3 (4.2-5.4); Red Cell Distribution Width 21.9 % (11.5-14.5); White Blood Count 5.2 K/mm3 (4.5-10.0)
[2022-10-26 16:30] LABS: Iron 70 ug/dL (37-170)
[2022-10-26 16:41] LABS: Percent Iron Saturation 23 % (20-50)
== END 2022-10-26 14:22 | disposition home or self-care (01) ==
LOC: ANHLAB 14:27
PROVIDERS: PCP Internal Medicine; Visit Provider Internal Medicine Hematology & Oncology
DX: D64.9 Anemia, unspecified (principal)
CPT/HCPCS: 36415; 82607; 82728; 83540; 83550; 85027

== ENCOUNTER 2023-07-15 11:54 | Emergency (ER) | payer MEDICARE, MEDICAID, SELFPAY ==
[2023-07-15] VITALS (7 sets, daily range): BP systolic 145–152; BP diastolic 66–79; PULSE 55–60; RESP 18–20; TEMP 36.8; O2SAT 98–100
--- NOTE | ~2023-07-15 | CT_ITS ---
EXAMINATION: CT brain wo con DATE: 07/15/2023 13:21 INDICATION: Dizziness TECHNIQUE: Computed tomography (CT) of the head was performed without intravenous contrast. Sagittal and coronal reconstructions were performed. The mA was adjusted according to patient size. Iterative reconstruction technique was employed. The dose-length product was 605.33 mGy-cm. COMPARISON: head CT dated 09/06/2022 and brain MR dated 09/08/2022 FINDINGS: No acute intracranial hemorrhage, acute infarction or abnormal extra axial fluid collection. There is mild to moderate scattered white matter hypoattenuation consistent with chronic small vessel ischemi c disease. Symmetric prominence of the sulci and subarachnoid spaces overlying the convexities consis tent with moderate age-appropriate diffuse cerebral volume loss. Ventricles are normal and symmetric. No mass/mass effect. Status post left mastoidectomy. Small bilateral mastoid effusions. The orbits, paranasal sinuses and mastoid air cells are normal. IMPRESSION: 1. No acute intracranial process. 2. Age-related changes including moderate diffuse volume loss with mild to moderate scattered white m atter hypoattenuation consistent with chronic small vessel ischemic disease. Reviewed, dictated and finalized at location A. IMPRESSION: 1. No acute intracranial process. 2. Age-related changes including moderate diffuse volume loss with mild to mode rate scattered white matter hypoattenuation consistent with chronic small vesse l ischemic disease.
--- NOTE | ~2023-07-15 | XR_ITS ---
EXAMINATION: XR chest 1V portable DATE: 07/15/2023 12:22 INDICATION: Dizziness TECHNIQUE: frontal view of the chest was obtained. COMPARISON: Chest radiograph dated 10/20/2022 FINDINGS: Chronic linear band of discoid atelectasis/scarring at the right upper lung zone. Persistent mild opa cities at the bilateral lung bases. Possible small left pleural effusion. No pulmonary edema or pneum othorax. Cardiomegaly. Large retrocardiac hiatal hernia. IMPRESSION: 1. Small left pleural effusion with persistent mild bibasilar opacities which could represent atelect asis or less likely pneumonia. 2. Large hiatal hernia. 3. Cardiomegaly. Reviewed, dictated and finalized at location A. IMPRESSION: 1. Small left pleural effusion with persistent mild bibasilar opacities which c ould represent atelectasis or less likely pneumonia. 2. Large hiatal hernia. 3. Cardiomegaly.
--- NOTE | 2023-07-15 12:02 | ED.DIZZY ---
HPI - Dizziness General Chief Complaint: Dizziness Stated Complaint: DIZZY Time Seen by Provider: 07/15/23 12:01 Source: patient, family and EMS Mode of arrival: EMS History of Present Illness HPI Narrative: 88 years old white female came from assisted living by ambulance because workup this morning and did not feel well. Dizzy, feels like probably she is going to black out. Worse with any activities also complaining of pain at the back of her head and neck which probably chronic but today is little bit worse. Patient's daughter who have seen the patient yesterday telling me that the patient looks exactly the same as yesterday. The total is telling me that patient had similar symptoms in numerous of time in the past. Currently patient main complaint is hurting at back of her head and neck. Patient denies any focal weakness or numbness or tingling. Patient Forgot her hearing aid. Related Data Home Medications Medication Instructions Recorded Confirmed Ca 600 mg-D3 800 unit-magnes 40 1 tablet PO DAILY 07/04/19 09/06/22 wz-eiuk-ngf-paul-boron chewable tablet (Caltrate 600-D Plus Minerals) albuterol sulfate 90 mcg/actuation 2 puff inhalation QID 07/04/19 09/06/22 aerosol inhaler budesonide-formoterol HFA 80 2 puff inhalation BID 07/04/19 09/06/22 mcg-4.5 mcg/actuation aerosol inhaler (Symbicort) citalopram 40 mg tablet 40 mg PO HS 07/04/19 09/06/22 gabapentin 100 mg capsule 100 mg PO TID 07/04/19 09/06/22 hydrocodone 5 mg-acetaminophen 325 1 tablet PO DAILY PRN Pain 07/04/19 09/06/22 mg tablet ondansetron HCl 4 mg tablet 4 mg DAILY PRN Nausea 07/04/19 09/06/22 acetaminophen 500 mg tablet 500 mg PO Q8H PRN Pain (Scale 06/14/21 09/06/22 Score 1-3) amlodipine 5 mg tablet 5 mg PO DAILY 06/14/21 09/06/22 cetirizine 10 mg tablet (Zyrtec) 10 mg PO DAILY 06/14/21 09/06/22 furosemide 40 mg tablet 40 mg PO DAILY 06/14/21 09/06/22 naloxone 4 mg/actuation nasal spray 4 mg intranasal Q3M PRN Opioid 06/14/21 09/06/22 Overdose polyethylene glycol 3350 17 17 g PO DAILY 06/14/21 09/06/22 gram/dose oral powder (Miralax) Allergies Allergy/AdvReac Type Severity Reaction Status Date / Time mushroom AdvReac Unknown Verified 10/20/22 15:11 oyster extract AdvReac Unknown Verified 10/20/22 15:11 Review of Systems Review of Systems: All systems reviewed & are unremarkable except as noted in HPI and below PMFSH Past Medical History Medical History (Updated 07/15/23 @ 14:56 by Nory Guy PA-C) Chronic anemia Chronic diastolic heart failure Chronic kidney disease Chronic obstructive pulmonary disease Chronic respiratory failure with hypoxia, on home O2 therapy Deep venous thrombosis Dementia Depression Gastroesophageal reflux disease Hyperlipidemia Hypertension Peptic ulcer disease Vitamin B12 deficiency Surgical History Surgical History History of inferior vena caval filter placement History of tubal ligation Family History Family History Mother Hypertension Sibling Hypertension Social History Social History (Updated 07/15/23 @ 14:57 by Nory Guy PA-C) Social History: Surrogate decision maker: Marci Charlton, daughter. Code status: Full code. Smoking packs per day: 0.75 Smoking cigarettes per day: 15.0 Years smoked: 60 Smoking pack-years: 45.00 Smoking status: Former smoker Alcohol intake: never Substance use: never Substance use type: does not use Lack of Transportation: No Lack of Food: Never True Current Housing: I Have Housing Concerned About Future Housing: No Difficulty Paying Gas/Electric Bills: No Difficulty Paying for Meds: No Currently Unemployed: No Education: Decline to Answer Difficulty w/ Childcare or Family Care: No Living arrangements: assisted living Additional living arrangements comments: [facility]
--- NOTE | 2023-07-15 12:11 | ECG_ITS ---
SEE SCANNED COPY FOR CONFIRMED REPORT MTDD
[2023-07-15 12:29] LABS: Alveolar/Arterial O2 Gradient 83.7 mmHg; Base Excess ABG 4.1 mEq/l (+/-2.0); Fractional Inspired Oxygen 28 %; Oxygen Content ABG 18.4 %vol (16.0-22.0); Oxyhemoglobin 96.4 % THb (90.0-100.0); PO2 ABG 87.6 mmHg (80.0-100.0); PO2 FiO2 Ratio Arterial Blood 3.13 %; Total Hemoglobin 13.5 g/dL (12.0-18.0)
[2023-07-15 12:33] LABS: Device NASAL CANNULA; Modified Allen's Test Pass; Site Drawn RIGHT RADIAL; pH ABG 7.617 (7.350-7.450)
[2023-07-15 13:19] LABS: Basophils Absolute Auto 0.1 K/mm3 (0.0-0.1); Basophils Percent Auto 1.1 % (0.2-1.2); Eosinophils Absolute Auto 0.1 K/mm3 (0-0.3); Eosinophils Percent Auto 0.9 % (0-4.4); Hematocrit 41.2 % (37.0-47.0); Hemoglobin 13.5 g/dL (12.0-15.0); Immature Granulocyte Absolute 0.01 K/mm3 (0.00-0.031); Immature Granulocyte Percent A 0.2 % (0-0.5); Lymphocytes Absolute Auto 0.96 K/mm3 (0.9-3.2); Lymphocytes Percent Auto 17.7 % (18.3-44.2); Mean Corpuscular HGB Conc 32.8 g/dl (32-36); Mean Corpuscular Hemoglobin 32.6 pg (26-34); Mean Corpuscular Volume 99.5 fl (80-100); Mean Platelet Volume 10.3 fl (7.4-10.4); Monocytes Absolute Auto 0.4 K/mm3 (0.1-0.6); Monocytes Percent Auto 7.2 % (2.6-8.5); Neutrophils Percent Auto 72.9 % (45.5-73.1); Platelet Count Result 150 k/mm3 (150-375); Red Blood Count 4.14 M/mm3 (4.2-5.4); Red Cell Distribution Width 12.4 % (11.5-14.5); White Blood Count 5.4 K/mm3 (4.5-10.0)
--- NOTE | 2023-07-15 13:26 | PC.NURSE ---
No change in assessment. Pt up to [facility] with x1 assist. Tolerated well.
[2023-07-15 13:33] LABS: Appearance Urine Clear (Clear); Bilirubin Urine Negative (Negative); Blood Urine Negative (Negative); Color Urine Yellow (Yellow); Glucose Urine UA Negative (Negative); Ketones Urine Negative (Negative); Leukocyte Esterase Ur Negative LEU/UL (Negative); Nitrate Urine Negative (Negative); Protein Urine Negative (Negative); Specific Grav Ur 1.008 (1.001-1.035); Urobilinogen Urine 0.2 mg/dL (<2.0)
[2023-07-15 13:34] LABS: Alanine Aminotransferase 18 U/L (6-35); Albumin Level 4.6 g/dL (3.5-5.1); Alkaline Phosphatase 65 U/L (38-126); Anion Gap 8 mmol/L (4-12); Aspartate Amino Transferase 27 U/L (14-36); Bilirubin,Total 0.9 mg/dL (0.2-1.3); Blood Urea Nitrogen 19 mg/dL (7-17); Calcium 9.5 mg/dL (8.4-10.2); Carbon Dioxide 26 mmol/L (22-30); Chloride 108 mmol/L (98-107); Estimated CRCL calculation 34 ml/min; Estimated Glomerular Filt Rate 52; Glucose 94 mg/dL (65-110); Potassium 3.5 mmol/L (3.4-5.0); Prothrombin Time 13.4 Seconds (11.1-14.7); Sodium 142 mmol/L (137-145)
[2023-07-15 13:35] LABS: Partial Thromboplastin Time 27.7 Seconds (22.3-36.8)
[2023-07-15 13:37] LABS: Add Urine Microscopic? NO
[2023-07-15 13:44] LABS: Troponin I < 0.012 ng/mL (0.000-0.034)
--- NOTE | 2023-07-15 14:53 | PM.IMHP ---
H&P: HPI History of Present Illness Date/Time: PATIENT LEFT AMA FROM THE ED PRIOR TO ADMISSION TO THE FLOOR. I DID NOT SEE OR EVALUATE THE PATIENT. SEE ED PHYSICIAN NOTE FOR DETAILS. FORMERLY [facility] Past Medical History Medical History (Updated 07/15/23 @ 14:56 by Nory Guy PA-C) Chronic anemia Chronic diastolic heart failure Chronic kidney disease Chronic obstructive pulmonary disease Chronic respiratory failure with hypoxia, on home O2 therapy Deep venous thrombosis Dementia Depression Gastroesophageal reflux disease Hyperlipidemia Hypertension Peptic ulcer disease Vitamin B12 deficiency Surgical History Surgical History History of inferior vena caval filter placement History of tubal ligation Family History Family History Mother Hypertension Sibling Hypertension Social History Social History (Updated 07/15/23 @ 14:57 by Nory Guy PA-C) Social History: Surrogate decision maker: Marci Charlton, alexia. Code status: Full code. Smoking packs per day: 0.75 Smoking cigarettes per day: 15.0 Years smoked: 60 Smoking pack-years: 45.00 Smoking status: Former smoker Alcohol intake: never Substance use: never Substance use type: does not use Lack of Transportation: No Lack of Food: Never True Current Housing: I Have Housing Concerned About Future Housing: No Difficulty Paying Gas/Electric Bills: No Difficulty Paying for Meds: No Currently Unemployed: No Education: Decline to Answer Difficulty w/ Childcare or Family Care: No Living arrangements: assisted living Additional living arrangements comments: Assisted living at [facility]. Spiritual care concerns: No Agree to blood products: Yes Meds Home Medications and Allergies Home Medications Medication Instructions Recorded Confirmed Type Ca 600 mg-D3 800 unit-magnes 40 1 tablet PO DAILY 07/04/19 09/06/22 History af-mczz-wro-paul-boron chewable tablet (Caltrate 600-D Plus Minerals) albuterol sulfate 90 mcg/actuation 2 puff inhalation QID 07/04/19 09/06/22 History aerosol inhaler budesonide-formoterol HFA 80 2 puff inhalation BID 07/04/19 09/06/22 History mcg-4.5 mcg/actuation aerosol inhaler (Symbicort) citalopram 40 mg tablet 40 mg PO HS 07/04/19 09/06/22 History gabapentin 100 mg capsule 100 mg PO TID 07/04/19 09/06/22 History hydrocodone 5 mg-acetaminophen 325 1 tablet PO DAILY PRN Pain 07/04/19 09/06/22 History mg tablet ondansetron HCl 4 mg tablet 4 mg DAILY PRN Nausea 07/04/19 09/06/22 History pantoprazole 40 mg tablet,delayed 40 mg PO Q12HR #60 tabs 07/10/19 09/06/22 Rx release acetaminophen 500 mg tablet 500 mg PO Q8H PRN Pain (Scale 06/14/21 09/06/22 History Score 1-3) amlodipine 5 mg tablet 5 mg PO DAILY 06/14/21 09/06/22 History cetirizine 10 mg tablet (Zyrtec) 10 mg PO DAILY 06/14/21 09/06/22 History furosemide 40 mg tablet 40 mg PO DAILY 06/14/21 09/06/22 History naloxone 4 mg/actuation nasal spray 4 mg intranasal Q3M PRN Opioid 06/14/21 09/06/22 History Overdose polyethylene glycol 3350 17 17 g PO DAILY 06/14/21 09/06/22 History gram/dose oral powder (Miralax) aspirin 81 mg tablet,delayed 81 mg PO QAM #30 tabs 06/17/21 09/06/22 Rx release atorvastatin 20 mg tablet 20 mg PO HS #30 tabs 06/17/21 09/06/22 Rx clopidogrel 75 mg tablet 75 mg PO QAM #30 tabs 06/17/21 09/06/22 Rx metoprolol succinate 50 mg 50 mg PO QAM #30 tabs 06/17/21 09/06/22 Rx tablet,extended release 24 hr nitroglycerin 0.4 mg sublingual 0.4 mg sublingual Q5MIN PRN Chest 06/17/21 09/06/22 Rx tablet (Nitrostat) Pain #30 tabs cefdinir 300 mg capsule 300 mg PO Q12H #8 caps 09/14/22 Rx ciprofloxacin HCl 0.3 % eye drops 2 drp RIGHT EYE Q4HR #2.5 mL 09/14/22 Rx Allergies Allergy/AdvReac Type Severity Reaction Status Date / Time mushroom AdvReac Unknown
--- NOTE | 2023-07-15 15:58 | PC.NURSE ---
No change in assessment. Dr. Johnson spoke with pt daughter concerning POC to admit pt. Daughter refuses admission states I know my mother she is fine . AMA document signed.
== END 2023-07-15 16:04 | disposition left against medical advice (07) ==
LOC: ANHED 12:16 → ANH2MED 15:16 → ANHED 15:37
PROVIDERS: Emergency Provider Emergency Medicine; PCP Internal Medicine
DX: R42 Dizziness and giddiness (principal); R55 Syncope and collapse; E87.3 Alkalosis; F03.90 Unspecified dementia, unspecified severity, without behavioral disturbance, psychotic disturbance, mood disturbance, and anxiety; I13.0 Hypertensive heart and chronic kidney disease with heart failure and stage 1 through stage 4 chronic kidney disease, or unspecified chronic kidney disease; N18.9 Chronic kidney disease, unspecified; I50.32 Chronic diastolic (congestive) heart failure; J44.9 Chronic obstructive pulmonary disease, unspecified; J96.11 Chronic respiratory failure with hypoxia; Z99.81 Dependence on supplemental oxygen; E78.5 Hyperlipidemia, unspecified; E53.8 Deficiency of other specified B group vitamins; D64.9 Anemia, unspecified; K21.9 Gastro-esophageal reflux disease without esophagitis; F32.A Depression, unspecified; Z86.711 Personal history of pulmonary embolism; Z86.718 Personal history of other venous thrombosis and embolism; Z87.891 Personal history of nicotine dependence; K44.9 Diaphragmatic hernia without obstruction or gangrene; I51.7 Cardiomegaly; R91.8 Other nonspecific abnormal finding of lung field; R00.1 Bradycardia, unspecified; I45.10 Unspecified right bundle-branch block
CPT/HCPCS: 36415; 36600; 70450; 71045; 80053; 81003; 82805; 84484; 85025; 85610; 85730; 93005; 99284

== ENCOUNTER 2023-08-23 09:41 | Outpatient (CLI) | payer MEDICARE, MEDICAID, SELFPAY ==
[2023-08-23 09:56] LABS: Basophils Absolute Auto 0.1 K/mm3 (0.0-0.1); Basophils Percent Auto 1.2 % (0.2-1.2); Eosinophils Absolute Auto 0.1 K/mm3 (0-0.3); Eosinophils Percent Auto 1.3 % (0-4.4); Hematocrit 40.1 % (37.0-47.0); Hemoglobin 13.1 g/dL (12.0-15.0); Immature Granulocyte Absolute 0.02 K/mm3 (0.00-0.031); Immature Granulocyte Percent A 0.4 % (0-0.5); Lymphocytes Absolute Auto 0.84 K/mm3 (0.9-3.2); Lymphocytes Percent Auto 16.2 % (18.3-44.2); Mean Corpuscular HGB Conc 32.7 g/dl (32-36); Mean Corpuscular Hemoglobin 33.1 pg (26-34); Mean Corpuscular Volume 101.3 fl (80-100); Monocytes Absolute Auto 0.4 K/mm3 (0.1-0.6); Monocytes Percent Auto 7.5 % (2.6-8.5); Neutrophils Absolute Auto 3.8 K/mm3 (1.3-6.7); Neutrophils Percent Auto 73.4 % (45.5-73.1); Platelet Count Result 180 k/mm3 (150-375); Red Blood Count 3.96 M/mm3 (4.2-5.4); Red Cell Distribution Width 12.5 % (11.5-14.5); White Blood Count 5.2 K/mm3 (4.5-10.0)
[2023-08-23 10:41] LABS: Alanine Aminotransferase 16 U/L (6-35); Albumin Level 4.1 g/dL (3.5-5.1); Alkaline Phosphatase 57 U/L (38-126); Anion Gap 7 mmol/L (4-12); Aspartate Amino Transferase 24 U/L (14-36); Bilirubin,Total 0.7 mg/dL (0.2-1.3); Blood Urea Nitrogen 19 mg/dL (7-17); Calcium 9.2 mg/dL (8.4-10.2); Carbon Dioxide 30 mmol/L (22-30); Chloride 105 mmol/L (98-107); Estimated Glomerular Filt Rate 52; Glucose 91 mg/dL (65-110); Potassium 3.8 mmol/L (3.4-5.0); Sodium 142 mmol/L (137-145)
[2023-08-23 11:43] LABS: Folic Acid 13.8 ng/mL (2.76->20)
[2023-08-23 17:51] LABS: Iron 108 ug/dL (37-170)
[2023-08-23 18:01] LABS: Percent Iron Saturation 48 % (20-50)
== END 2023-08-23 09:42 | disposition home or self-care (01) ==
LOC: ANHLAB 09:45
PROVIDERS: Nurse Practitioner Family; PCP Internal Medicine; Visit Provider Internal Medicine Hematology & Oncology
DX: D64.9 Anemia, unspecified (principal)
CPT/HCPCS: 36415; 80053; 82607; 82728; 82746; 83540; 83550; 85025

== ENCOUNTER 2024-06-13 10:11 | Outpatient (CLI) | payer MEDICARE, MEDICAID, SELFPAY ==
--- OUTSIDE RECORDS SUMMARY | 2024-06-13 10:56 | XMS_ITS | Clinical Summary ---
Author Organization [facility] Traci Elias Address [address] [place] [address] Care Team Providers Care Hand Trucker Name Role Phone Gurvinder Thompson MD Primary Care Provider [phone] Allergies No known active allergies Medications HYDROcodone-alvaro taminophen (NORCO) 10-325 mg Tablet Take 1 Tablet by mouth every 4 hours as needed for Pain, Moderate. Active ondansetron (ZOFRAN ODT) 4 mg Tablet, Rapid Dissolve Take 4 mg by mouth every 8 hours as needed for Nausea/Emesis. Dissolve tablet on top of tongue, then swallow with saliva. Active albuterol sulfate HFA 90 mcg/actuation aerosol inhaler Take 2 Puffs by inhalation every 6 hours as needed for Shortness of Breath. Active citalopram (CeleXA) 40 mg tablet Take 40 mg by mouth daily. Active gabapentin (NEURONTIN) 100 mg capsule Take 200 mg by mouth daily at bedtime. Active pantoprazole (PROTONIX) 40 mg Tablet, Delayed Release (E.C.) Take 40 mg by mouth daily. Active amLODIPine (NORVASC) 5 mg tablet Take 5 mg by mouth daily. Active acetaminophen (TYLENOL) 500 mg tablet Take 500 mg by mouth every 6 hours as needed for Pain. Active cetirizine (ZyrTEC) 1 mg/mL Solution Take 10 mg by mouth daily. Active furosemide (LASIX) 40 mg tablet Take 40 mg by mouth daily. Active polyethylene glycol 3350 (MIRALAX) 17 gram/dose Powder Take 17 Grams by mouth daily. Dissolve in 8 ounces of fluid and drink entire liquid Active aspirin (ECOTRIN EC) 81 mg Tablet, Delayed Release (E.C.) Take 81 mg by mouth daily. Active atorvastatin (LIPITOR) 20 mg tablet Take 20 mg by mouth daily. Active nitroglycerin (NITRODUR) 0.4 mg/hr patch Apply 1 Patch to skin as directed daily. Active calcium-choleca lciferol, D3, (Caltrate 600 plus D) 600 mg-20 mcg (800 unit) Tablet, Chewable tablet Take 1 Tablet by mouth daily. Active pentazocine HCl/naloxone HCl (PENTAZOCINE-NA LOXONE ORAL) Take by mouth. Ac tive Vitamin C 500 mg tabletIndicatio ns:Chronic anemia TAKE 1 TABLET BY MOUTH ONCE DAILY 30 Tablet Active FeroSuL 325 mg (65 mg iron) tabletIndicatio ns:Chronic anemia TAKE 1 TABLET BY MOUTH ONCE DAILY 30 Tablet Active Active Problems No known active problems Encounters Date Type Department Care Team Description 05/08/2024 [facility] Oncology and Hematology [facility] [address] [place] [address] Carlos Sommers MD Chronic anemia 05/01/2024 External Device Data [facility] ABSTRACTION Provider, Abstract 04/17/2024 [facility] Oncology and Hematology [facility] [address] [place] [address] Carlos Sommers MD Chronic anemia 04/10/2024 External Device Data [facility] ABSTRACTION Provider, Abstract 04/04/2024 External Device Data [facility] ABSTRACTION Provider, Abstract 03/27/2024 [facility] Oncology and Hematology [facility] [address] [place] [address] Carlos Sommers MD Chronic anemia from Last 3 Months Family History Relation Name Status Comments Daughter 1 Alive Daughter 2 Alive Daughter 3 Alive Daughter 4 Alive Father Mother Sister Alive Social History Tobacco Use Types Packs/Day Years Used Date Smoking Tobacco: Former Cigarettes Smokeless Tobacco: Never Tobacco Cessation:Counseling Given: Not Answered Alcohol Use Standard Drinks/Week Comments Not Asked 0 (1 standard drink = 0.6 oz pur e alcohol) rare Comments Unknown Sex and Gender Information Value Date Recorded Sex Assigned at Not on file Legal Sex Female 1:32 PM CDT Gender Identity Not on file Sexual Orientation Not on file Last Filed Vital Signs Vital Sign Reading Time Taken Comments Blood Pressure 109/64 08/24/2023 1:07 PM CDT Pulse 78 08/24/2023 1:07 PM CDT Temperature 36.6 C (97.8 F) 08/24/2023 1:07 PM CDT Respiratory Rate 22 08/24/2023 1:07 PM CDT Oxygen Saturation 93% 08/24/2023 1:07 PM CDT Inhaled Oxygen Concentration - - Weight 68.9 kg (152 lb) 08/24/2023 1:07 PM CDT Height 147.3 cm (4' 10 ) 10/26/2022 1:27 PM CDT Body Mass Index 31.77 10/26/2022 1:27 PM CDT Plan of Treatment Health Maintenance Due Date Last Done Comments DTAP/TDAP/TD VACCINES (1 - Tdap) 06/02/1954 ZOSTER VACCINE (1 of 2) 06/02/1985 RSV VACCINE (60+ or ) (1 - 1-dose 75+ series) 06/02/2010 INFLUENZA VACCINE (#1) 2023 , 12/27/2019, 12/06/2018, Additional history exists Medicare Advantage ([place]) Preventative Visit/Annual Wellness Visit 03/13/2024 PNEUMOCOCCAL VACCINE 50+ YEARS Completed 0 09/28/2016, 09/27/2016, 12/01/2011 OSTEOPOROSIS SCREENING Completed 11/23/2020 Insurance [facility] [id number] [address] [place] [id number] Care Teams Hand Trucker Relationship Specialty Start Date End Date Gurvinder Thompson MD [address] [place] [phone] PCP - General Internal Medicine 04/20/23
--- OUTSIDE RECORDS SUMMARY | 2024-06-13 10:56 | XMS_ITS ---
Author Name Eren Hung Address [address] [place] [address] Phone [phone] [facility] ice Address [address] [place] [address] Phone [phone] Care Team Providers Care Assistant News Director Name Role Phone Eren Hung Unavailable [phone] Kristofer Garner Unavailable [phone] Functional Status Mental Status Allergies and Intolerances Medications Problems Reason for Referral Past Medical History
--- OUTSIDE RECORDS SUMMARY | 2024-06-13 10:56 | XMS_ITS | Continuity of Care Document ---
Author Organization [facility] Address [address] [place] [address] Phone Care Team Providers Care Bread Wrapper Name Role Phone Evie Fox Unavailable Unavailable Procedures Procedure Date Post-op Follow-up Visit Post-op Follow-up Visit Remove Cataract, Insert Lens Eye Exam & Treatment Echo Exam Of Eye Eye Exam & Treatment Refraction Advance Directives Directive Yes / No Effective Date File Name No Information Encounters Encounter Description Practice Location Reason(s) For Visit Diagnoses Date Provider Providers Copied on Encounter [facility], [address] [place] [address] [address], [place], [place], [id number], [place] tel:[phone] [facility] [place] No Information Sep-2 3-201 0 Dominique Case. [address] [place] , [address], [place], [address], [place]. tel:[phone] [facility], [address] [place] [address] [address], [place], [place], [id number], [place] tel:[phone] [facility] [place] No Information Sep-1 6-201 0 Dominique Torres [address] [place] , [address], [place], [address], [place]. tel:[phone] [facility], [address] [place] [address] [address], [place], [place], [id number], [place] tel:[phone] [facility] No Information Sep-1 5-201 0 Dominique Torres [address] [facility] , [address], [place], [place], [facility], . tel:[phone] [facility], [address] [place] [address] [address], [place], [place], [id number], tel:[phone] [facility] [place] No Information Sep-0 2-201 0 Dominique Case. [address] [facility] , [address], [place], [place], [facility], . tel:[phone] Referring Provider: Evie Ramírez [address] [facility] [address], [place], [place], [facility]. tel:[phone] [facility], [address] [place] [address] [facility] [address], [place], [place], [id number], tel:[phone] SEC [facility] No Information Yehuda-0 4-200 9 Dominique Torres [facility] , [address], [place], [place], [facility], . tel:[phone] Family History Family Member Type Diagnosis Age At Onset No Information Payers Payer name Insurance type Covered democrat ID Authoriza tion(s) No Information Social History [...]
== END 2024-06-13 10:12 | disposition home or self-care (01) ==
LOC: ANHAUDIO 10:12
PROVIDERS: PCP Internal Medicine; Visit Provider Otolaryngology
DX: H90.3 Sensorineural hearing loss, bilateral (principal); Z97.4 Presence of external hearing-aid; Z86.69 Personal history of other diseases of the nervous system and sense organs; H65.499 Other chronic nonsuppurative otitis media, unspecified ear
CPT/HCPCS: 92557; 92567

== ENCOUNTER 2024-10-27 21:16 | Emergency (ER) | payer MEDICARE, SELFPAY ==
--- NOTE | ~2024-10-27 | CT_ITS ---
Non-contrast Head CT History: Status post fall COMPARISON: 07/15/2023 Technique: Axial non-contrast imaging of the brain was performed. Dose reduction technique was used on this scan by utilizing automated exposure control and iterative reconstruction technique. The dose -length product (DLP) was 605.33 mGy-cm. Findings: There is no evidence of intracranial hemorrhage, mass lesion, or acute infarct. Brain par enchyma appears normal. The ventricles and subarachnoid spaces are normal in size. The calvarium ap pears normal. The visualized paranasal sinuses and mastoid air cells are clear. Impression: No significant abnormality seen. Reviewed, dictated and finalized at location . Impression: No significant abnormality seen.
--- NOTE | ~2024-10-27 | XR_ITS ---
EXAM/ PROCEDURE: XR shoulder RT min 2V - 10/28/2024 0:49 CDT HISTORY: 89 years old Female with fall COMPARISON: None available TECHNIQUE: Two view(s) FINDINGS/ IMPRESSION: There are no fractures or dislocations.Joint space narrowing, subchondral sclerosis, subchondral cyst formation and osteophyte formation, compatible with mild osteoarthritis. Reviewed, dictated and finalized at location A.
--- NOTE | ~2024-10-27 | XR_ITS ---
Portable chest x-ray Comparison: 07/15/2023 Clinical History: Status post fall Findings: Probable small left pleural effusion and/or left basilar consolidation. Right lung clear. Cardiomediastinal silhouette is stable. Bones and soft tissues are unremarkable. Impression: Probable small left pleural effusion with left basilar atelectasis and/or pneumonia. Correlate clinic ally. Stable cardiomegaly. Reviewed, dictated and finalized at location . Impression: Probable small left pleural effusion with left basilar atelectasis and/or pneum onia. Correlate clinically. Stable cardiomegaly.
--- NOTE | ~2024-10-27 | CT_ITS ---
EXAMINATION: CT cervical spine wo con DATE: 10/28/2024 02:16 INDICATION: Fall TECHNIQUE: Computed tomography (CT) of the cervical spine was performed without intravenous contrast. COMPARISON: 09/06/2022 FINDINGS: Cervical vertebral body heights are within normal limits. No compression fracture in the cervical spi ne. Bones appear osteopenic Grade 1 anterolisthesis of C4 on C5. Mild joint space narrowing at the C4-C5 and C5-C6 levels. Predental space is within normal limits. No prevertebral soft tissue swelling. Lateral dental interva ls are within normal limits. Small opacities in the lung apices possibly atelectasis or scarring. Partial opacification of the mas toid air cells. IMPRESSION: 1. No compression fraction in the cervical spine. 2. Grade 1 anterolisthesis of C4 on C5. 3. Mild joint space narrowing of the C4-C5 and C5-C6 levels. If symptoms persist or worsen, consider an MRI of the cervical spine for further assessment. Reviewed, dictated and finalized at location A. IMPRESSION: 1. No compression fraction in the cervical spine. 2. Grade 1 anterolisthesis of C4 on C5. 3. Mild joint space narrowing of the C4-C5 and C5-C6 levels. If symptoms persist or worsen, consider an MRI of the cervical spine for furthe r assessment.
[2024-10-27 21:19] VITALS: BP 141/66; PULSE 89; RESP 16; TEMP 36.8; O2SAT 96
--- OUTSIDE RECORDS SUMMARY | 2024-10-27 21:19 | XMS_ITS | Continuity of Care Document ---
Author Organization [facility] Address [address] [place] [address] Phone Care Team Providers Care Tallow Maker Name Role Phone Evie Fox Unavailable Unavailable Procedures Procedure Date Post-op Follow-up Visit Post-op Follow-up Visit Remove Cataract, Insert Lens Eye Exam & Treatment Echo Exam Of Eye Eye Exam & Treatment Refraction Advance Directives Directive Yes / No Effective Date File Name No Information Encounters Encounter Description Practice Location Reason(s) For Visit Diagnoses Date Provider Providers Copied on Encounter [facility], [address] [place] [address] [address], [place], [place], [id number], [place] tel:[phone] [facility] [place] No Information Sep-2 3-201 0 Dominique Case. [address] [facility] , [address], [place], [address], [place]. tel:[phone] [facility], [address] [place] [address] [address], [place], [place], [id number], [place] tel:[phone] [facility] [place] No Information Sep-1 6-201 0 Dominique Torres [address] [facility] [place] , [address], [place], [address], [place]. tel:[phone] [facility], [address] [place] [address] [address], [place], [place], [id number], [place] tel:[phone] [facility] No Information Sep-1 5-201 0 Dominique Torres [address] [facility] , [address], [place], [place], [facility], . tel:[phone] [facility], [address] [place] [address] [address], [place], [place], [id number], tel:[phone] [facility] [place] No Information Sep-0 2-201 0 Dominique Case. [address] [facility] , [address], [place], [place], [facility], . tel:[phone] Referring Provider: Evie Ramírez [address] [facility] [address], [place], [place], [facility]. tel:[phone] [facility], [address] [place] [address] [facility] [address], [place], [place], [id number], tel:[phone] [facility] No Information Yehuda-0 4-200 9 Dominique Torres [facility] , [address], [place], [place], [facility], . tel:[phone] Family History Family Member Type Diagnosis Age At Onset No Information Payers Payer name Insurance type Covered republican ID Authoriza tion(s) No Information Social History [...]
--- OUTSIDE RECORDS SUMMARY | 2024-10-27 21:19 | XMS_ITS | Clinical Summary ---
Author Organization [facility] Traci Elias Address [address] [place] [address] Care Team Providers Care Portfolio Specialist Name Role Phone Gurvinder Thompson MD Primary Care Provider [phone] Allergies No known active allergies Medications HYDROcodone-alvaro [...] TABLET BY MOUTH ONCE DAILY 30 Tablet 5 Active FeroSuL 325 mg (65 mg iron) tabletIndicatio ns:Chronic anemia TAKE 1 TABLET BY MOUTH ONCE DAILY 30 Tablet 5 Active Active Problems No known active problems Encounters Date Type Department Care Team Description 09/27/2024 Refill [facility] Oncology and Hematology - [facility] [address] [place] [address] Carlos Sommers MD Chronic anemia 09/26/2024 Refill [facility] Oncology and Hematology - [facility] [address] [place] [address] Carlos Sommers MD Chronic anemia 08/16/2024 Refill [facility] Oncology and Hematology - [facility] [address] [place] [address] Carlos Sommers MD Chronic anemia 08/06/2024 External Device Data ST[facility] ABSTRACTION Provider, Abstract 07/31/2024 External Device Data [facility] ABSTRACTION Provider, Abstract 07/30/2024 External Device Data [facility] ABSTRACTION Provider, Abstract from Last 3 Months Family History Relation [...] 1:07 PM CDT Height 147.3 cm (4' 10) 10/26/2022 1:27 PM CDT Body Mass Index 31.77 10/26/2022 1:27 PM CDT Plan of Treatment Health Maintenance Due Date Last Done Comments DTAP/TDAP/TD VACCINES (1 - Tdap) 06/02/1954 ZOSTER VACCINE (1 of 2) 06/02/1985 RSV VACCINE (60+ or ) (1 - 1-dose 75+ series) 06/02/2010 INFLUENZA VACCINE (#1) 2024 , 12/27/2019, 12/06/2018, Additional history exists OSTEOPOROSIS SCREENING 11/23/2025 11/23/2020 PNEUMOCOCCAL VACCINE 50+ YEARS Completed 0 09/28/2016, 09/27/2016, 12/01/2011 Insurance [facility] [id number] Care Teams Portfolio Specialist Relationship Specialty Start Date End Date Gurvinder Thompson MD [address] [place] [phone] PCP - General Internal Medicine 04/20/23
--- OUTSIDE RECORDS SUMMARY | 2024-10-27 21:19 | XMS_ITS ---
Author Name Auto Generated, Auto Generated Organization [facility] ices Address [address] [place] [address] Phone [phone] Care Team Providers Care Scooping Machine Tender Name Role Phone Eren Hung Unavailable Kristofer Garner Unavailable [phone] Functional Status No Results Mental Status No Results Allergies and Intolerances Name Onset Date Reaction Severity mushroom (Allergy) MonSep 15 14:20:00 EDT 2022 oyster extract (Allergy) MonSep 15 14:20:00 EDT 2022 Medications Medication Directions Start Date End Date TUBErsoL 5 tub. unit/0.1 mL intradermal injection solution 0.1 ml VIAL (ML) Intradermal 1 Time Weekly for 2 Weeks Indication: TB test 1st injection on admission, then one week after. Read between 48 and 72 hours MonSep 16 06:00:00 EDT 2022Sep 30 01:00:00 EDT 2022 TUBErsoL 5 tub. unit/0.1 mL intradermal injection solution Read Results VIAL (ML) Other 1 Time Weekly for 2 Weeks Indication: tb test Read results between 48-72 hours after 1st and 2nd (1 week apart). If positive do chest x-ray. MonSep 16 13:00:00 EDT 2022Sep 30 01:00:00 EDT 2022 ciprofloxacin 0.3 % eye drops 2 drops DROPS Right Eye Every 4 Hours Indication: Eye infection MonSep 15 14:00:00 EDT 2022Sep 20 12:12:00 EDT 2022 cefdinir 300 mg capsule 1 capsule CAPSUL E Oral Every 12 Hours for 4 Days Indication: Infection MonSep 15 14:00:00 EDT 2022Sep 19 13:59:00 EDT 2022 Caltrate 600 plus D 600 mg-20 mcg (800 unit) chewable tablet 1 tablet TABLET,CHEWABLE Oral 1 Time Daily Indication: Supplement MonSep 15 14:00:00 EDT 2022Sep 30 01:00:00 EDT 2022 HYDROcodone 5 mg-acetaminophen 325 mg tablet 1 tablet TABLET Oral PRN 1 Time Daily Indication: Pain MonSep 15 14:00:00 EDT 2022Sep 15 16:00:00 EDT 2022 ondansetron 4 mg disintegrating tablet 1 tablet TABLET,DISINTEGRATING Oral PRN Every 6 Hours Indication: Nausea/Vomiting MonSep 15 14:00:00 EDT 2022Sep 30 01:00:00 EDT 2022 albuterol sulfate HFA 90 mcg/actuation aerosol inhaler 2 puffs HFA AEROSOL WITH ADAPTER (GRAM) Inhalation 4 Times Daily Indication: SOB MonSep 15 14:00:00 EDT 2022Sep 30 01:00:00 EDT 2022 budesonide-formoterol HFA 80 mcg-4.5 mcg/actuation aerosol inhaler 2 puffs HFA AEROSOL WITH ADAPTER (GRAM) Inhalation 2 Times Daily Indication: COPD MonSep 15 14:00:00 EDT 2022Sep 30 01:00:00 EDT 2022 citalopram 40 mg tablet 1 tablet TABLET Oral 1 Time Daily Indication: Depression MonSep 15 14:00:00 EDT 2022Sep 30 01:00:00 EDT 2022 gabapentin 100 mg capsule 1 capsule CAPS ULE Oral 3 Times Daily Indication: Neuropathy MonSep 15 15:00:00 EDT 2022Sep 30 01:00:00 EDT 2022 pantoprazole 40 mg tablet,delayed release 1 tablet TABLET, DELAYED RELEASE (ENTERIC COATED) Oral Every 12 Hours Indication: GERD MonSep 15 14:00:00 EDT 2022Sep 30 01:00:00 EDT 2022 amLODIPine 5 mg tablet 1 tablet TABLET O ral 1 Time Daily Indication: HTN MonSep 15 14:00:00 T 2022Sep 30 01:00:00 EDT 2022 acetaminophen 500 mg tablet 1 tablet TAB LET Oral PRN Every 8 Hours Indication: Pain MonSep 15 14:00:00 EDT 2022Sep 30 01:00:00 EDT 2022 cetirizine 10 mg tablet 1 tablet TABLET Oral 1 Time Daily Indication: Allergies MonSep 15 14:00:00 ED2022Sep 30 01:00:00 EDT 2022 furosemide 40 mg tablet 1 tablet TABLET Oral 1 Time Daily Indication: CHF MonSep 15 14:00:00 EDT 2022Sep 30 01:00:00 EDT 2022 naloxone 4 mg/actuation nasal spray 4mg SPRAY, NON-AEROSOL (EA) Intranasal PRN Every 3 Minutes Indication: Opioid Overdose MonSep 15 14:00:00 EDT 2022Sep 30 01:00:00 EDT 2022 polyethylene glycoL 3350 17 gram/dose oral powder 17 grams POWDER (GRAM) Oral 1 Time Daily Indication: Constipation MonSep 15 14:00:00 EDT 2022Sep 30 01:00:00 EDT 2022 aspirin 81 mg tablet,delayed release 1 tablet TABLET, DELAYED RELEASE (ENTERIC COATED) Oral 1 Time Daily Indication: DVT proph MonSep 15 15:00:00 EDT 2022Sep 30 01:00:00 EDT 2022 atorvastatin 20 mg tablet 1 tablet TABLE T Oral 1 Time Daily Indication: HLD MonSep 15 14:00:00 EDT 2022Sep 30 01:00:00 EDT 2022 clopidogreL 75 mg tablet 1 tablet TABLET Oral 1 Time Daily Indication: DVT proph MonSep 15 14:00:00 EDT 2022Sep 16 10:45:00 EDT 2022 metoprolol succinate ER 50 mg tablet,extended release 24 hr 1 tablet TABLET, EXTENDED RELEASE 24 HR Oral 1 Time Daily Indication: HTN MonSep 15 14:00:00 EDT 2022Sep 30 01:00:00 EDT 2022 nitroglycerin 0.4 mg sublingual tablet 1 tablet TABLET, SUBLINGUAL Sublingual PRN (Max 3 Doses) Indication: Administer every 5 minutes x 3 PRN r/t Chest pain MonSep 15 15:00:00 EDT 2022Sep 30 01:00:00 EDT 2022 HYDROcodone 5 mg-acetaminophen 325 mg tablet 1/2 tablet TABLET Oral PRN 1 Time Daily Indication: Pain; ONLY GIVE IF TYLENOL HAS NOT WORKED PER FAMILY REQUEST MonSep 15 15:59:00 EDT 2022Sep 30 01:00:00 EDT 2022 Problems Active Concerns * Chronic obstructive pulmonary disease, unspecified* Code: * Start Date: MonSep 15 00:00:00 EDT 2022 * End Date: * Text: * Anemia, unspecified* Code: * Start Date: MonSep 15 00:00:00 EDT 2022 * End Date: * Text: * Personal history of other venous thrombosis and embolism* Code: * Start Date: MonSep 15 00:00:00 EDT 2022 * End Date: * Text: * Gastro-esophageal reflux disease without esophagitis* Code: * Start Date: MonSep 15 00:00:00 EDT 2022 * End Date: * Text: * Unspecified fall, subsequent encounter* Code: * Start Date: MonSep 15 00:00:00 EDT 2022 * End Date: * Text: * watermelon inspector (current) use of antithrombotics/antiplatelets* Code: * Start Date: MonSep 15 00:00:00 EDT 2022 * End Date: * Text: * Unspecified dementia, unspecified severity, without behavioral disturbance, psychotic disturbance, mood disturbance, and anxiety* Code: * Start Date: MonSep 15 00:00:00 EDT 2022 * End Date: * Text: * Unspecified acute conjunctivitis, right eye* Code: * Start Date: MonSep 15 00:00:00 EDT 2022 * End Date: * Text: * Hypertensive heart and chronic kidney disease with heart failure and stage 1 through stage 4 chronic kidney disease, or unspecified chronic kidney disease * Code: * Start Date: MonSep 15 00:00:00 EDT 2022 * End Date: * Text: * Mixed hyperlipidemia* Code: * Start Date: MonSep 15 00:00:00 EDT 2022 * End Date: * Text: * Deficiency of other specified B group vitamins* Code: * Start Date: MonSep 15 00:00:00 EDT 2022 * End Date: * Text: * Retention of urine, unspecified* Code: * Start Date: MonSep 15 00:00:00 EDT 2022 * End Date: * Text: * Cellulitis of right upper limb* Code: * Start Date: MonSep 15 00:00:00 EDT 2022 * End Date: * Text: * Presence of urogenital implants* Code: * Start Date: MonSep 15 00:00:00 EDT 2022 * End Date: * Text: * Chronic diastolic (congestive) heart failure* Code: * Start Date: MonSep 15 00:00:00 EDT 2022 * End Date: * Text: * Chronic respiratory failure with hypoxia* Code: * Start Date: MonSep 15 00:00:00 EDT 2022 * End Date: * Text: * Dependence on supplemental oxygen* Code: * Start Date: MonSep 15 00:00:00 EDT 2022 * End Date: * Text: * Presence of other vascular implants and grafts* Code: * Start Date: MonSep 15 00:00:00 EDT 2022 * End Date: * Text: * Personal history of nicotine dependence* Code: * Start Date: MonSep 15 00:00:00 EDT 2022 * End Date: * Text: * Altered mental status, unspecified* Code: * Start Date: MonSep 15 00:00:00 EDT 2022 * End Date: * Text: * Wedge compression fracture of T11-T12 vertebra, sequela* Code: * Start Date: MonSep 15 00:00:00 EDT 2022 * End Date: * Text: * Facial weakness* Code: * Start Date: MonSep 15 00:00:00 EDT 2022 * End Date: * Text: * Personal history of peptic ulcer disease* Code: * Start Date: MonSep 15 00:00:00 EDT 2022 * End Date: * Text: * watermelon inspector (current) use of aspirin* Code: * Start Date: MonSep 15 00:00:00 EDT 2022 * End Date: * Text: * Chronic kidney disease, stage 3a* Code: * Start Date: MonSep 15 00:00:00 EDT 2022 * End Date: * Text: * Gastritis, unspecified, without bleeding* Code: * Start Date: MonSep 15 00:00:00 EDT 2022 * End Date: * Text: * Weakness* Code: * Start Date: MonSep 15 00:00:00 EDT 2022 * End Date: * Text: * Unsteadiness on feet* Code: * Start Date: MonSep 15 00:00:00 EDT 2022 * End Date: * Text: * Contusion of left lower leg, subsequent encounter* Code: * Start Date: MonSep 15 00:00:00 EDT 2022 * End Date: * Text: * Major depressive disorder, single episode, unspecified* Code: * Start Date: MonSep 15 00:00:00 EDT 2022 * End Date: * Text: * Generalized anxiety disorder* Code: * Start Date: MonSep 15 00:00:00 EDT 2022 * End Date: * Text: * Unspecified osteoarthritis, unspecified site* Code: * Start Date: MonSep 15 00:00:00 EDT 2022 * End Date: * Text: * Allergic rhinitis, unspecified* Code: * Start Date: MonSep 15 00:00:00 EDT 2022 * End Date: * Text: * Slow transit constipation* Code: * Start Date: MonSep 15 00:00:00 EDT 2022 * End Date: * Text: * Drug induced constipation* Code: * Start Date: MonSep 15 00:00:00 EDT 2022 * End Date: * Text: * Adverse effect of other opioids, subsequent encounter* Code: * Start Date: MonSep 15 00:00:00 EDT 2022 * End Date: * Text: * Unspecified hearing loss, bilateral* Code: * Start Date: MonSep 15 00:00:00 EDT 2022 * End Date: * Text: Reason for Referral Past Medical History
--- NOTE | 2024-10-28 00:32 | ED_ITS ---
HPI - Fall General Chief Complaint: Fall Stated Complaint: GLF, no LOC and - thinner Time Seen by Provider: 10/28/24 00:17 History of Present Illness HPI Narrative: 89-year-old female presenting to the emergency department after a ground level mechanical fall at her assisted living facility. Patient has a history of dementia, CKD, hypertension. She states that she was trying to get into bed and she slipped off and fell to the ground landing on her right shoulder. Did not hit her head or lose consciousness. No blood thinner use. She was able to get up and without any assistance. She normally ambulates with a walker. Ambulance was called to the assisted living given the fall with concern for injury. Patient is having some minor pain underneath her right shoulder but denies any other symptoms. No weakness, neuropathy, fever, chills, chest pain, shortness a breath, headache or vision changes. No nausea or vomiting. Denies head strike for blood thinner use. Related Data Home Medications ?Medication ?Instructions ?Recorded ?Confirmed ?Last Taken ?Type albuterol sulfate 90 mcg/actuation 2 puff inhalation QID 07/04/19 05/15/24 Unknown History aerosol inhaler budesonide-formoterol HFA 80 2 puff inhalation BID 07/04/19 05/15/24 Unknown History mcg-4.5 mcg/actuation aerosol inhaler (Symbicort) calcium 600 mg-D3 800 unit-mag 40 1 tablet PO DAILY 07/04/19 05/15/24 Unknown History bz-xuxl-qnyo-paul-boron chew tablet (Caltrate 600-D Plus Minerals) citalopram 40 mg tablet 40 mg PO HS 07/04/19 05/15/24 Unknown History gabapentin 100 mg capsule 100 mg PO TID 07/04/19 05/15/24 Unknown History hydrocodone 5 mg-acetaminophen 325 1 tablet PO DAILY PRN Pain 07/04/19 05/15/24 Unknown History mg tablet acetaminophen 500 mg tablet 500 mg PO Q8H PRN Pain (Scale 06/14/21 05/15/24 Unknown History Score 1-3) amlodipine 5 mg tablet 5 mg PO DAILY 06/14/21 05/15/24 Unknown History cetirizine 10 mg tablet (Zyrtec) 10 mg PO DAILY 06/14/21 05/15/24 Unknown History furosemide 40 mg tablet 40 mg PO DAILY 06/14/21 05/15/24 Unknown History naloxone 4 mg/actuation nasal spray 4 mg intranasal Q3M PRN Opioid 06/14/21 05/15/24 Unknown History Overdose polyethylene glycol 3350 17 17 g PO DAILY 06/14/21 05/15/24 Unknown History gram/dose oral powder (Miralax) Allergies Allergy/AdvReac Type Severity Reaction Status Date / Time mushroom AdvReac Unknown Verified 06/19/24 13:20 oyster extract AdvReac Unknown Verified 06/19/24 13:20 Review of Systems Review of Systems: As reviewed above in [facility] Past Medical History Medical History Chronic respiratory failure with hypoxia, on home O2 therapy Chronic diastolic heart failure Chronic kidney disease Chronic anemia Deep venous thrombosis Peptic ulcer disease Gastroesophageal reflux disease Depression Chronic obstructive pulmonary disease Vitamin B12 deficiency Hypertension Hyperlipidemia Dementia Surgical History Surgical History History of inferior vena caval filter placement History of tubal ligation Family History Family History Mother Hypertension Sibling Hypertension Social History Social History Social History: Surrogate decision maker: Marci Charlton, daughter. Code status: Full code. Smoking packs per day: 0.75 Smoking cigarettes per day: 15.0 Years smoked: 60 Smoking pack-years: 45.00 Smoking status: Former smoker Alcohol intake: never Substance use: never Substance use type: does not use Lack of Transportation: No Lack of Food: Never True Current Housing: I Have Housing Concerned About Future Housing: No Difficulty Paying Gas/Electric Bills: No Difficulty Paying for Meds: No Currently Unemployed: No Education: Decline to Answer Difficulty w/ Childcare or Family Care: No Living arrangements: assisted living Additional living arrangements comments: Assisted living at [facility]. Spiritual care concerns: No Agree to blood products: Yes Exam Narrative: GENERAL: [Well-appearing, well-nourished, and in no acute distress.] HEAD: [Normocephalic, atraumatic.] EYES: [PERRLA and EOMI.] ENT: Nares clear, no rhinorrhea or epistaxis. Mucous membranes moist. NECK: Supple. CHEST: [Clear to auscultation. No respiratory distress.] HEART: [Regular rate and rhythm]. No murmur heard. [Normal peripheral pulses.] ABDOMEN: [Soft, nondistended], [nontender], [No rigidity or guarding] EXTREMITIES: Good range of motion and good symmetric strength bilaterally in the upper extremities. Full range of motion of the lower extremities. Tenderness reproducible in the inferior aspect of the right shoulder, no step- offs, deformities or subluxations noted. 2+ pulses. Warm extremities. No midline tenderness to palpation the neck or spine. SKIN: Warm, dry, no rash. NEURO: [No focal deficits]. Alert and oriented [x3.] PSYCH: [Normal mood and affect.] Course Vital Signs Vital signs: Vital Signs Temperature 36.8 C 10/27/24 21:19 Pulse Rate 89 10/27/24 21:19 Respiratory Rate 16 10/27/24 21:19 Blood Pressure 141/66 H 10/27/24 21:19 Pulse Oximetry 96 10/27/24 21:19 Oxygen Delivery Room Air 10/27/24 21:19 Temperature 36.6 C 10/28/24 01:41 Pulse Rate 69 10/28/24 01:41 Respiratory Rate 16 10/28/24 01:41 Blood Pressure 108/83 10/28/24 01:41 Pulse Oximetry 99 10/28/24 01:41 Oxygen Delivery Room Air 10/27/24 21:19 MDM - Fall MDM Narrative Medical decision making narrative: 89-year-old female presenting to the emergency department after a ground level mechanical fall at her assisted living facility. Patient has a history of dementia, CKD, hypertension. She states that she was trying to get into bed and she slipped off and fell to the ground landing on her right shoulder. Did not hit her head or lose consciousness. No blood thinner use. She was able to get up and without any assistance. She normally ambulates with a walker. Ambulance was called to the assisted living given the fall with concern for injury. Patient is having some minor pain underneath her right shoulder but denies any other symptoms. No weakness, neuropathy, fever, chills, chest pain, shortness a breath, headache or vision changes. No nausea or vomiting. Denies head strike for blood thinner use. Exam reassuring with good range of motion and good symmetric strength bilaterally in the upper extremities. Full range of motion of the lower extremities. Tenderness reproducible in the inferior aspect of the right shoulder, no step-offs, deformities or subluxations noted. 2+ pulses. Warm extremities. No midline tenderness to palpation the neck or spine. Normal set of vitals, patient is awake alert oriented. She is using her home O2 oxygen dose right now without any respiratory complaints. X-rays of the right shoulder and chest were obtained and she got a CT head and cervical spine given her age with trauma history. Low suspicion intracranial pathology or cervical pathology. Most likely contusions rather than occult fractures. Patient given Tylenol for analgesia and re-evaluated. CT cervical spine shows no traumatic abnormalities. CT of the head shows no acute intracranial abnormalities. Chest x-ray shows some atelectasis and maybe small pleural effusion but unrelated to patient's symptoms or concerns today. Shoulder x-ray without any fractures or dislocation. Degenerative joint disease in the acromioclavicular joint. Patient re-evaluated and doing well. Hemodynamically stable without any significant injuries. Safe for discharge home at this time. Medical Records Attestation: I reviewed the patient's medical records. Imaging Data Attestation: I personally reviewed and interpreted this imaging study as follows: My impression: CT cervical spine shows no traumatic abnormalities. CT of the head shows no acute intracranial abnormalities. Chest x-ray shows some atelectasis and maybe small pleural effusion but unrelated to patient's symptoms or concerns today. Shoulder x-ray without any fractures or dislocation. Discharge Plan Discharge Clinical Impression: Ground-level fall, CHI (closed head injury), Acute shoulder pain Patient Disposition: NH Senior Care/Asst Living Condition: Stable Instructions: Antibiotic Form, Head Injury (ED), Contusion in Adults (ED) Additional Instructions: No sustained injuries on your x-rays or CT scans. Take Tylenol, ibuprofen and lidocaine patches applied to the area for pain control. Return with any emergent concerns. Patient Language: [place] Prescriptions: New lidocaine 5 % adhesive patch,medicated 1 patch topical DAILY Qty: 15 0RF Rx Instructions: leave on most painful area for up to 12 hrs acetaminophen [Tylenol Extra Strength] 500 mg tablet 1,000 mg PO TID PRN (Reason: pain) Qty: 30 0RF No Action citalopram 40 mg tablet 40 mg PO HS hydrocodone-acetaminophen 5-325 mg Tablet 1 tablet PO DAILY PRN (Reason: Pain) gabapentin 100 mg capsule 100 mg PO TID Rx Instructions: MORNING, NOON, AND BEDTIME albuterol sulfate 90 mcg/actuation Hfa Aerosol Inhaler 2 puff INHALATION QID budesonide-formoterol [Symbicort] 80-4.5 mcg/actuation HFA aerosol inhaler 2 puff INHALATION BID Caltrate 600-D Plus Minerals 600 mg calcium- 800 unit-40 mg Tablet,Chewable 1 tablet PO DAILY pantoprazole 40 mg Tablet,Delayed Release (Dr/Ec) 40 mg PO Q12HR Qty: 60 0RF acetaminophen 500 mg Tablet 500 mg PO Q8H PRN (Reason: Pain (Scale Score 1-3)) furosemide 40 mg Tablet 40 mg PO DAILY cetirizine [Zyrtec] 10 mg Tablet 10 mg PO DAILY amlodipine 5 mg Tablet 5 mg PO DAILY polyethylene glycol 3350 [Miralax] 17 gram/dose Powder 17 g PO DAILY naloxone 4 mg/actuation [place],Non-Aerosol 4 mg INTRANASAL Q3M PRN (Reason: Opioid Overdose) atorvastatin 20 mg Tablet 20 mg PO HS Qty: 30 0RF aspirin 81 mg Tablet,Delayed Release (Dr/Ec) 81 mg PO QAM Qty: 30 0RF nitroglycerin [Nitrostat] 0.4 mg Tablet, Sublingual 0.4 mg sublingual Q5MIN PRN (Reason: Chest Pain) Qty: 30 0RF Follow-up/Referrals: Jay,Gurvinder Akers MD [Primary Care Provider] - Stand Alone Forms: Longterm Discharge Time of Disposition: 03:07
--- OUTSIDE RECORDS SUMMARY | 2024-10-28 00:39 | XMS_ITS | Continuity of Care Document ---
Author Organization [facility] Address [address] [place] [address] Phone Care Team Providers Care Glass Unloading Equipment Tender Name Role Phone Evie Fox Unavailable Unavailable Procedures Procedure Date Post-op Follow-up Visit Post-op Follow-up Visit Remove Cataract, Insert Lens Eye Exam & Treatment Echo Exam Of Eye Eye Exam & Treatment Refraction Advance Directives Directive Yes / No Effective Date File Name No Information Encounters Encounter Description Practice Location Reason(s) For Visit Diagnoses Date Provider Providers Copied on Encounter [facility], [address] [place] [address] [address], [place], [place], [id number], [place] tel:[phone] [facility] [place] No Information Sep-2 3-201 0 Dominique Case. [address] , [address], [place], [address], [place]. tel:[phone] [facility], [address] [place] [address] [address], [place], [place], [id number], [place] tel:[phone] [facility] [place] No Information Sep-1 6-201 0 Dominique Torres [address] [facility] , [address], [place], [address], [place]. tel:[phone] [facility], [address] [place] [address] [address], [place], [place], [id number], [place] tel:[phone] [facility] No Information Sep-1 5-201 0 Dominique Torres [address] , [address], [place], [place], [facility], . tel:[phone] [facility], [address] [place] [address] [address], [place], [place], [id number], tel:[phone] [facility] [place] No Information Sep-0 2-201 0 Dominique Case. [address] , [address], [place], [place], [facility], . tel:[phone] Referring Provider: Evie Ramírez [address], [place], [place], [facility]. tel:[phone] [facility], [address] [place] [address] [address] [facility], [place], [place], [id number], tel:[phone] [facility] No Information Yehuda-0 4-200 9 Dominique Torres [facility] , [address], [place], [place], [facility], . tel:[phone] Family History Family Member Type Diagnosis Age At Onset No Information Payers Payer name Insurance type Covered constitution party ID Authoriza tion(s) No Information Social History [...]
--- OUTSIDE RECORDS SUMMARY | 2024-10-28 00:39 | XMS_ITS | Clinical Summary ---
Author Organization [facility] Traci Elias Address [address] [place] [address] Care Team Providers Care Geochemical Laboratory Technician Name Role Phone Gurvinder Thompson MD Primary Care Provider [phone] Allergies No known active allergies Medications HYDROcodone-alvaro [...] Type Department Care Team Description 09/27/2024 Refill [facility] Oncology and Hematology - [address] [place] [address] Carlos Sommers MD Chronic anemia 09/26/2024 Refill [facility] Oncology and Hematology - [address] [place] [address] Carlos Sommers MD Chronic anemia 08/16/2024 Refill [facility] Oncology and Hematology - [address] [place] [address] Carlos Sommers MD Chronic anemia 08/06/2024 External [...] YEARS Completed 0 09/28/2016, 09/27/2016, 12/01/2011 Insurance [facility] [id number] Care Teams Geochemical Laboratory Technician Relationship Specialty Start Date End Date Gurvinder Thompson MD [address] [place] [phone] PCP - General Internal Medicine 04/20/23
--- OUTSIDE RECORDS SUMMARY | 2024-10-28 00:39 | XMS_ITS ---
Author Name Auto Generated, Auto Generated Organization [facility] ices Address [address] [place] [address] Phone [phone] Care Team Providers Care Pediatric Surgeon Name Role Phone Eren Hung Unavailable Kristofer Garner Unavailable Functional Status No Results Mental Status No [...]
[2024-10-28] MEDS: ACETAMINOPHEN 500 MG TABLET 1000 MG PO (01:39)
[2024-10-28 01:41] VITALS: BP 108/83; PULSE 69; RESP 16; TEMP 36.6; O2SAT 99
== END 2024-10-28 07:48 ==
PROVIDERS: Emergency Provider Student in an Organized Health Care Education/Training Program; PCP Internal Medicine
DX: S49.91XA Unspecified injury of right shoulder and upper arm, initial encounter (principal); S09.90XA Unspecified injury of head, initial encounter; F03.90 Unspecified dementia, unspecified severity, without behavioral disturbance, psychotic disturbance, mood disturbance, and anxiety; I13.0 Hypertensive heart and chronic kidney disease with heart failure and stage 1 through stage 4 chronic kidney disease, or unspecified chronic kidney disease; N18.9 Chronic kidney disease, unspecified; I50.32 Chronic diastolic (congestive) heart failure; J44.9 Chronic obstructive pulmonary disease, unspecified; E78.5 Hyperlipidemia, unspecified; E53.8 Deficiency of other specified B group vitamins; D64.9 Anemia, unspecified; K21.9 Gastro-esophageal reflux disease without esophagitis; Z86.718 Personal history of other venous thrombosis and embolism; Z87.11 Personal history of peptic ulcer disease; Z87.891 Personal history of nicotine dependence; Z79.82 Long term (current) use of aspirin; Z79.899 Other long term (current) drug therapy; M48.02 Spinal stenosis, cervical region; I51.7 Cardiomegaly; W06.XXXA Fall from bed, initial encounter
CPT/HCPCS: 70450; 71045; 72125; 73030; 99284; A9270

== ENCOUNTER 2024-11-20 21:02 | Emergency (ER) | payer MEDICARE, SELFPAY ==
--- OUTSIDE RECORDS SUMMARY | 2009-12-03 03:30 | XMS_ITS | Continuity of Care Document ---
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 Name Role Phone Evie Fox Unavailable Unavailable Procedures Procedure Date Post-op Follow-up Visit Post-op Follow-up Visit Remove Cataract, Insert Lens Eye Exam & Treatment Echo Exam Of Eye Eye Exam & Treatment Refraction Advance Directives Directive Yes / No Effective Date File Name No Information Encounters Encounter Description Practice Location Reason(s) For Visit Diagnoses Date Provider Providers Copied on Encounter [facility], [address] [place] [address] [address], [place], [place], [id number], [place] tel:[phone] [facility] No Information Sep-2 3-201 0 Dominique Case. [address] [facility] , [address], [place], [address], [place]. tel:[phone] [facility], [address] [place] [address] [address], [place], [place], [id number], [place] tel:[phone] SEC [facility] No Information Sep-1 6-201 0 Dominique Torres [address] [facility] , [address], [place], [address], [place]. tel:[phone] [facility], [address] [place] [address] [address], [place], [place], [id number], [place] tel:[phone] [facility] No Information Sep-1 5-201 0 Dominique Torres [address] [facility] , [address], [place], [place], [facility], . tel:[phone] [facility], [address] [place] [address] [address], [place], [place], [id number], tel:[phone] SEC [facility] No Information Sep-0 2-201 0 Dominique Case. [address] [facility] , [address], [place], [place], [facility], . tel:[phone] Referring Provider: Evie Ramírez [address] [facility] [address], [place], [place], [facility]. tel:[phone] [facility], [address] [place] [address] [facility] [address], [place], [place], [id number], tel:[phone] [facility] No Information Yehuda-0 4-200 9 Dominique Torres [facility] , [address], [place], [place], [facility], . tel:[phone] Family History Family Member Type Diagnosis Age At Onset No Information Payers Payer name Insurance type Covered libertarian ID Authoriza tion(s) No Information Social History Type Description Quantity Date Captured Comments Sex Female Smoking Status No Information Chief Complaint And Reason For Visit No Information Reason For Referral Reason For Referral No Information History Of Present Illness Encounter Date Complaint History Of Prese nt Illness No Information Functional Status Date Functional Assessmen t No Information Instructions Date Instruction Additional Infor mation No Information Assessments Type Assessment Date No Information Patient Care Teams Name Effective Dates (start - stop) Status Members No Information
--- NOTE | ~2024-11-20 | CT_ITS ---
CT HEAD NON-CONTRAST CT C-SPINE Clinical History: GLF Comparison: CT head 10/28/2024 Technique: Unenhanced axial images skull base to vertex. Coronal, sagittal reformats. Axial images thoracic inlet to skull base. Sagittal and coronal reformats. CT images acquired with automatic exposure control for dose reduction DLP: 605 mGy-cm Findings: Head: Chronic white matter microvascular ischemic changes. Sulci, ventricles: Unremarkable. No intracerebral hemorrhage. No evidence acute territorial infarct. No mass effect, midline shift, intra-/extra-axial fluid collection. Bony calvarium intact. Visualized paranasal sinuses: Clear. Mastoid air cells: Clear. C-spine: No acute fracture. Grade 1 anterolisthesis C4 on 5 C6 on C7, C7 on T1. Mild degenerative changes. Disc spaces maintained. Prevertebral soft tissues within normal limits. Visualized lung apices: Emphysema. Scarring. Visualized thyroid: Unremarkable. No enlarged cervical nodes. IMPRESSION: HEAD: 1. No acute intracranial findings. C-SPINE: 1. No acute fracture. Reviewed, dictated and finalized at location R. IMPRESSION: HEAD: 1. No acute intracranial findings. C-SPINE: 1. No acute fracture.
[2024-11-20 21:03] VITALS: BP 145/67; PULSE 78; RESP 17; TEMP 36.6; O2SAT 97
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
--- OUTSIDE RECORDS SUMMARY | 2024-11-20 22:01 | XMS_ITS | Clinical Summary ---
Author Organization [facility] Traci Elias Address [address] [place] [address] Care Team Providers Care Monogram And Letter Paster Name Role Phone Gurvinder Thompson MD Primary Care Provider [phone] Allergies No known active allergies Medications HYDROcodone-alvaro [...] Date Type Department Care Team Description [facility] [address] [place] [address] Carlos Sommers MD Chronic anemia 09/26/2024 [facility] Oncology and Hematology - [address] [place] [address] Carlos Sommers MD Chronic anemia from Last [...] YEARS Completed 0 09/28/2016, 09/27/2016, 12/01/2011 Insurance Care Teams Monogram And Letter Paster Relationship Specialty Start Date End Date Gurvinder Thompson MD [address] [place] [phone] PCP - General Internal Medicine 04/20/23
[2024-11-20 22:05] VITALS: BP 142/66; PULSE 86; RESP 22; O2SAT 99
[2024-11-20 22:30] VITALS: BP 129/66; PULSE 96; RESP 25; O2SAT 96
[2024-11-20 23:43] VITALS: BP 136/66; PULSE 90; RESP 17; O2SAT 97
[2024-11-20 23:44] VITALS: BP 136/66; PULSE 84; RESP 28; O2SAT 96
[2024-11-20 23:46] VITALS: BP 124/82; PULSE 81; RESP 24; O2SAT 95
[2024-11-21 00:31] VITALS: BP 119/79; PULSE 91; RESP 22; O2SAT 97
[2024-11-21 01:16] VITALS: BP 115/92; PULSE 87; RESP 22; O2SAT 97
== END 2024-11-21 02:00 ==
PROVIDERS: Emergency Provider Emergency Medicine; PCP Internal Medicine
DX: S00.01XA Abrasion of scalp, initial encounter (principal); F03.90 Unspecified dementia, unspecified severity, without behavioral disturbance, psychotic disturbance, mood disturbance, and anxiety; I13.0 Hypertensive heart and chronic kidney disease with heart failure and stage 1 through stage 4 chronic kidney disease, or unspecified chronic kidney disease; N18.9 Chronic kidney disease, unspecified; I50.32 Chronic diastolic (congestive) heart failure; J96.11 Chronic respiratory failure with hypoxia; J44.9 Chronic obstructive pulmonary disease, unspecified; Z99.81 Dependence on supplemental oxygen; E53.8 Deficiency of other specified B group vitamins; E78.5 Hyperlipidemia, unspecified; D64.9 Anemia, unspecified; K21.9 Gastro-esophageal reflux disease without esophagitis; F32.A Depression, unspecified; Z86.718 Personal history of other venous thrombosis and embolism; Z87.11 Personal history of peptic ulcer disease; Z87.891 Personal history of nicotine dependence; W01.0XXA Fall on same level from slipping, tripping and stumbling without subsequent striking against object, initial encounter
CPT/HCPCS: 70450; 72125; 99284